=== PATIENT | female | born 1995 | race Caucasian/White ===

== ENCOUNTER 2020-08-07 10:30 | Emergency (ER) | payer BC, MEDICAID, SELFPAY ==
--- NOTE | ~2020-08-07 | XR_ITS ---
XR ribs RT 2V w CXR 2V DATE: 08/07/2020 11:13 INDICATION: Right anterior rib pain after moving heavy object TECHNIQUE: PA and lateral chest. 3 views of the right ribs. COMPARISON: None FINDINGS: No right rib fracture is evident. Normal heart size. No hilar or mediastinal enlargement. The lungs are clear. No pleural effusion or p ulmonary vascular congestion or pneumothorax. IMPRESSION: Negative Reviewed, dictated and finalized at location A. GEMENT TRAINER IMPRESSION: Negative
[2020-08-07 10:39] VITALS: BP 106/68; PULSE 87; RESP 20; TEMP 36.8; O2SAT 97
--- NOTE | 2020-08-07 10:57 | ED.GENADULT ---
HPI - General Adult General Chief complaint: Chest Pain <Jaren Poole PA-C - Last Filed: 08/07/20 12:35> Stated complaint: R chest pain <Jaren Poole PA-C - Last Filed: 08/07/20 12:35> Time Seen by Provider: 08/07/20 10:44 <Jaren Poole PA-C - Last Filed: 08/07/20 12:35> Source: patient <Jaren Poole PA-C - Last Filed: 08/07/20 12:35> Mode of arrival: ambulatory <Jaren Poole PA-C - Last Filed: 08/07/20 12:35> Limitations: no limitations <Jaren Poole PA-C - Last Filed: 08/07/20 12:35> History of Present Illness HPI narrative: Patient a 25-year-old female who presents with 2 weeks duration of right-sided rib pain noting that she had initially fallen into a chair injuring the ribs the pain has persisted is worse with deep breathing has taken [id number]-lojegta medications with minimal improvement denies other injuries or complaints has not been seen for this presents per private vehicle no distress denies URI symptoms <Jaren Poole PA-C - Last Filed: 08/07/20 12:35> Related Data Home medications: Home Medications Medication Instructions Recorded Confirmed sertraline [Zoloft] 50 mg PO DAILY 08/07/20 08/07/20 <Jaren Poole PA-C - Last Filed: 08/07/20 12:35> Allergies/adverse reactions: Allergies Allergy/AdvReac Type Severity Reaction Status Date / Time No Known Allergies Allergy Verified 08/07/20 10:49 <Jaren Poole PA-C - Last Filed: 08/07/20 12:35> Review of Systems Review of Systems: All systems reviewed & are unremarkable except as noted in HPI and below <Jaren Poole PA-C - Last Filed: 08/07/20 12:35> [facility] Past Medical History Medical History: Medical History (Updated 08/07/20 @ 12:34 by Jaren Poole PA-C) Anxiety <JOVANNI Enriquez Last Filed: 08/07/20 12:35> Social History Social History: Social History (Updated 08/07/20 @ 10:58 by Jaren Poole PA-C) Smoking status: Current every day smoker Gender identity (if verbalized by the patient): Female <Jaren Poole PA-C - Last Filed: 08/07/20 12:35> Exam Narrative: Exam Narrative: GENERAL: Well-appearing, well-nourished, and in no acute distress. HEAD: Normocephalic, atraumatic. EYES: PERRLA and EOMI. ENT: Nares clear, no rhinorrhea or epistaxis. Mucous membranes moist. NECK: Supple. No adenopathy or masses. No carotid bruits or JVD CHEST: Clear to auscultation. No respiratory distress. No wheezes rales or rhonchi. Reproducible right-sided chest wall tenderness HEART: Regular rate and rhythm. No murmur heard. Normal peripheral pulses. ABDOMEN: Soft, nontender, nondistended EXTREMITIES: Normal range of motion. No edema. SKIN: Warm, dry, no rash. NEURO: No focal deficits. Alert and oriented x3. Normal speech and gait PSYCH: Normal mood and affect. <Jaren Poole PA-C - Last Filed: 08/07/20 12:35> Course Course Emergency Course: Patient evaluated in the emergency department no high risk changes likely musculoskeletal pain secondary to the injury no rib fractures no pneumothorax no URI symptoms normal vital signs no hypoxemia will be discharged at this time with outpatient follow-up provided with reasons to return <Jaren Poole PA-C - Last Filed: 08/07/20 12:35> Vital Signs Vital signs: Vital Signs Temperature 98.2 F 08/07/20 10:39 Pulse Rate 87 08/07/20 10:39 Respiratory Rate 20 08/07/20 10:39 Blood Pressure 106/68 08/07/20 10:39 Pulse Oximetry 97 08/07/20 10:39 Temperature 98.2 F 08/07/20 10:39 Pulse Rate 63 08/07/20 12:14 Respiratory Rate 18 08/07/20 12:14 Blood Pressure 110/62 08/07/20 12:14 Pulse Oximetry 100 08/07/20 12:14 <Jaren Poole PA-C - Last Filed: 08/07/20 12:35> Vital Signs Temperature 98.2 F 08/07/20 10:39 Pulse Rate 87 08/07/20 10:39 Respiratory Rate 20 08/07/20 10:39 Blood Pressure 106/68 08/07
[2020-08-07] MEDS: KETOROLAC (*BKC) 60 MG/2 ML VIAL IM (11:13)
[2020-08-07 12:14] VITALS: BP 110/62; PULSE 63; RESP 18; O2SAT 100
== END 2020-08-07 12:45 | disposition home or self-care (01) ==
PROVIDERS: Emergency Provider General Practice; PCP Family Medicine
DX: R07.89 Other chest pain (principal); F17.200 Nicotine dependence, unspecified, uncomplicated
CPT/HCPCS: 71046; 71100; 96372; 99283; J1885

== ENCOUNTER 2020-11-07 15:54 | Outpatient (RCR) | payer BC, OTHER, SELFPAY ==
--- NOTE | 2020-11-07 17:52 | PTOPEVAL ---
Thank you for referring Candace Fletcher to [facility].? The patient is scheduled to be seen for therapy? ____x/week for ___ weeks. Please review, sign, date and return this plan of care PRINCE. I agree with and certify that the following plan of care is medically necessary. Referring Physician Date Admitting Provider: Attending Provider: Shaye Rendon, NURSE AUDITOR-BC Referring Provider:
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
--- NOTE | 2020-12-20 14:00 | PTOPEVAL ---
Thank you for referring Candace Fletcher to [facility].? Please review, sign, date and return this plan of care PRINCE. I agree with and certify that the following plan of care is medically necessary. Referring Physician Date Admitting Provider: Attending Provider: Shaye Rendon, WEIGHT CHECKER-BC Referring Provider: *PT Outpatient Evaluation Start: 11/07/20 16:05 Freq: Status: Active Protocol: Document 12/20/20 12:55 OLIVERIO (Rec: 12/20/20 13:48 OLIVERIO [email or web address]) Therapy Assessment Status Assessment Status Assessment Status Discharge Evaluation Information Problem Diagnosis neck pain/back pain Onset 10/31/20 Subjective Information Pt. reports that she notices Query Text:As Reported By Patient/ gains in strength. She Family however notes that she is still having constant pain. Pt. reports neck mobility is better. She states that not much change in regards to low back pain. She reports that she is exercising daily and focusing on her posture more. She reports that she will continue with exercise and is ready for dischrage. Pain Assessment Timing of Pain Assessment Timing of Pain Assessment Pre-Treatment Pain Scale Pain Scale Used Numeric (1 - 10) Self Report Pain Assessment Neck Reported Pain Level 4 Greatest Pain Intensity 4 Lower Back Reported Pain Level 6 Greatest Pain Intensity 7 Pain Score Pain Score 4,6: Self Report Interventions Used Interventions Used By Clinicians Electrical Stimulation, Exercise,Heat Cervical and Lumbar ROM Cervical ROM Cervical Flexion (0-60) 55 Query Text:Active in Degrees Cervical Extension (0-70) 70 Query Text:Active in Degrees Cervical Lateral Flexion Right (0-50) 45 Query Text:Active in Degrees Cervical Lateral Flexion Left (0-50) 45 Query Text:Active in Degrees Cervical Rotation Right (0-90) 80 Query Text:Active in Degrees Cervical Rotation Left (0-90) 80 Query Text:Active in Degrees Lumbar ROM Lumbar Flexion Active Mid Kaur Query Text:Hands to: Lumbar Extension (0-40) 25 Query Text:Active in Degrees Lumbar Lateral Flexion Right (0-40) 30 Query Text:Active in Degrees Lumbar Lateral Flexion Left (0-40) 30 Query Text:Active in Degrees Lateral Rotation Right (0-45) 35 Q
== END 2020-12-20 14:55 | disposition home or self-care (01) ==
LOC: CHSPT 15:54
PROVIDERS: Visit Provider Nurse Practitioner Family
DX: M54.10 Radiculopathy, site unspecified (principal); M54.5 Low back pain; M54.2 Cervicalgia
CPT/HCPCS: 97014; 97110; 97140; 97161; G0283

== ENCOUNTER 2020-12-20 14:08 | Outpatient (CLI) | payer BC, OTHER, SELFPAY | END 2020-12-20 14:09 | disposition home or self-care (01) | LOC: CHSIMG 14:11 | PROVIDERS: PCP Nurse Practitioner Family; Visit Provider Nurse Practitioner Family | DX: Z53.8 Procedure and treatment not carried out for other reasons (principal) | CPT/HCPCS: 99199 ==

== ENCOUNTER 2020-12-21 08:40 | Outpatient (CLI) | payer BC, OTHER, SELFPAY ==
--- NOTE | ~2020-12-21 | US_ITS ---
EXAMINATION: US pelvic complete w TV DATE: 12/21/2020 09:31 INDICATION: Dysmenorrhea TECHNIQUE: Multiple transabdominal and endovaginal sonographic images of the pelvis were obtained. COMPARISON: None. FINDINGS: The uterus measures 6.5 x 3.4 x 4.8 cm. Patient reportedly has an IUD however no IUD is see n. The endometrial complex measures 3 mm. The right ovary measures 4.0 x 3.0 x 3.9 cm and contains a 3.5 cm cyst. The left ovary measures 2.3 x 1.9 x 1.7 cm. There is a 1.4 x 1.3 cm cystic area of the l eft ovary with possible internal debris. There is normal vascular flow in the ovaries. There is no fr ee fluid in the pelvis. IMPRESSION: 1. No sonographic correlate for the patient's symptoms. 2. IUD not visualized. 3. Possible complex cyst of the left ovary. Given nonvisualization of the IUD, would recommend correl ation for left lower quadrant tenderness and test to exclude ectopic . These findi ngs and recommendations were discussed with Dr. Shay Ramos DO at 1351 hours on 12/21/2020. Reviewed, dictated and finalized at location B. IMPRESSION: 1. No sonographic correlate for the patient's symptoms. 2. IUD not visualized. 3. Possible complex cyst of the left ovary. Given nonvisualization of the IUD, would recommend correlation for left lower quadrant tenderness and te st to exclude ectopic . These findings and recommendations were discus sed with Dr. Shay Ramos DO at 1351 hours on 12/21/2020.
== END 2020-12-21 08:41 | disposition home or self-care (01) ==
PROVIDERS: PCP Nurse Practitioner Family; Visit Provider Family Medicine
DX: N94.6 Dysmenorrhea, unspecified (principal)
CPT/HCPCS: 76830; 76856

== ENCOUNTER 2020-12-23 09:11 | Emergency (ER) | payer BC, OTHER, SELFPAY ==
[2020-12-23] VITALS (11 sets, daily range): BP systolic 95–138; BP diastolic 55–96; PULSE 51–60; RESP 13–25; TEMP 36.7; O2SAT 98–100
--- NOTE | ~2020-12-23 | US_ITS ---
EXAMINATION: US pelvic complete DATE: 12/23/2020 10:54 INDICATION: Vaginal bleeding TECHNIQUE: Multiple transabdominal and endovaginal sonographic images of the pelvis were obtained. COMPARISON: 12/21/2020 FINDINGS: The uterus measures 6.6 x 3.5 x 3.8 cm. The endometrial complex measures 3 mm. The right ov fitz measures 3.8 x 2.8 x 3.9 cm and contains a 3.5 cm cyst. The left ovary measures 2.1 x 1.8 x 1.8 c m and contains a 1.3 cm cyst. Internal debris questioned on recent ultrasound is not definitely evide nt. There is normal vascular flow in the ovaries. There is no free fluid in the pelvis. No IUD is emiliano ntified. IMPRESSION: 1. No sonographic correlate for the patient's symptoms. No IUD identified. Reviewed, dictated and finalized at location B.
[2020-12-23 09:53] LABS: Basophils Absolute Auto 0.1 K/mm3 (0.0-0.1); Basophils Percent Auto 0.8 % (0.2-1.2); Eosinophils Absolute Auto 0.6 K/mm3 (0-0.3); Hematocrit 39.1 % (37.0-47.0); Hemoglobin 12.5 g/dL (12.0-15.0); Immature Granulocyte Absolute 0.02 K/mm3 (0.00-0.031); Immature Granulocyte Percent A 0.3 % (0-0.5); Lymphocytes Absolute Auto 1.92 K/mm3 (0.9-3.2); Mean Corpuscular Hemoglobin 25.9 pg (26-34); Mean Platelet Volume 11.3 fl (7.4-10.4); Monocytes Absolute Auto 0.7 K/mm3 (0.1-0.6); Monocytes Percent Auto 9.5 % (2.6-8.5); Neutrophils Absolute Auto 4.1 K/mm3 (1.3-6.7); Neutrophils Percent Auto 55.4 % (45.5-73.1); Platelet Count Result 256 k/mm3 (150-375); Red Blood Count 4.83 M/mm3 (4.2-5.4); Red Cell Distribution Width 13.9 % (11.5-14.5); White Blood Count 7.4 K/mm3 (4.5-10.0)
--- NOTE | 2020-12-23 10:01 | ED.FEMALEGU ---
HPI - Female Genitourinary General Chief complaint: Vaginal Bleeding Stated complaint: abdominal pain/vaginal bleeding Time Seen by Provider: 12/23/20 09:59 Source: patient Mode of arrival: ambulatory Limitations: no limitations History of Present Illness HPI Narrative: Patient is 25 years old white female presents with lower abdominal pain and vaginal bleeding that started last night. Patient reports that the bleeding was the spotting and suddenly become a menstrual cycle like bleeding. Last menstrual period 1-1/2-week ago. Patient reports irregular periods in the last few months, sometimes twice a month, used to have IUD, pelvic ultrasound few days ago showed that the IUD fell out. Patient is not sexually active for months. Patient denies any fever, chills, nausea, vomiting, Related Data Home Medications Medication Instructions Recorded Confirmed levonorgestrel 20 mcg/24 hours (6 1 device INTRAUTERINE ONCE 09/09/20 09/09/20 yrs) 52 mg intrauterine device cetirizine 10 mg tablet 10 mg PO DAILY PRN 12/19/20 Allergies Allergy/AdvReac Type Severity Reaction Status Date / Time No Known Allergies Allergy Verified 12/23/20 09:36 Review of Systems Review of Systems: Narrative: CONSTITUTIONAL: Denies fever, chills, or sweats. EYES: Denies visual changes, redness, or discharge. ENT: Denies rhinorrhea, congestion, sore throat, or otalgia. CARDIOVASCULAR: Denies chest pain, palpitations, or edema. RESPIRATORY: Denies cough or dyspnea. GASTROINTESTINAL: Denies abdominal pain, nausea, vomiting, or diarrhea. GENITOURINARY: Denies dysuria or hematuria. SKIN: Denies rash or itching. MUSCULOSKELETAL: Denies back pain, joint pain, or myalgia. NEUROLOGIC: Denies headache, numbness, or weakness. PSYCHIATRIC: Denies anxiety or depression. [facility] Past Medical History Medical History Anxiety Social History Social History Smoking packs per day: 1 Smoking cigarettes per day: 20.0 Years smoked: 3 Smoking pack-years: 3.00 Smoking status: Current every day smoker Tobacco type: e-cigarettes/vaping Alcohol intake: current Substance use: current Substance use type: marijuana Additional living arrangements comments: boyfriend and child Gender identity (if verbalized by the patient): Female Exam Narrative: Exam Narrative: General appearance: Well-developed, well-nourished Skin: Normal color Head: Normocephalic, nontraumatic Eyes: Clear conjunctiva ENT: Oropharynx normal, ears normal, nose normal Neck: Supple, nontender Chest and respiratory: Airway patent, no respiratory distress, no accessory muscle use Heart: Regular rate/rhythm Abdomen: Soft, nontender, no organomegaly, quiet bowel sounds Vascular: Normal peripheral pulses, normal capillary refill. 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 is normal as tested, no gross motor deficit : External Female Exam: normal external appearance and normal appearance of the urethra Speculum Exam - Vagina: normal appearance of the vagina, normal palpation and vaginal bleeding (Slight vaginal bleeding, required 3 long Q-tip to be dry completely) Course Course Emergency Course: Stable Vital Signs Vital signs: Vital Signs Temperature 36.7 C 12/23/20 09:32 Pulse Rate 60 12/23/20 09:32 Respiratory Rate 14 12/23/20 09:32 Blood Pressure 95/55 L 12/23/20 09:32 Pulse Oximetry 100 12/23/20 09:32 Temperature 36.7 C 12/23/20 09:32 Pulse Rate 52 L 12/23/20 10:46 Respiratory Rate 22 H 12/23/20 10:46 Blood Pre
[2020-12-23 10:27] LABS: Add Urine Microscopic? YES; Appearance Urine Cloudy (Clear); Bacteria Urine Trace /hpf; Bilirubin Urine Negative (Negative); Blood Urine 3+ (Negative); Color Urine Yellow (Yellow); Glucose Urine UA Negative (Negative); Ketones Urine Negative (Negative); Leukocyte Esterase Ur Trace LEU/UL (Negative); Mucus Urine Moderate /lpf; Nitrate Urine Negative (Negative); Protein Urine 1+ mg/dL (Negative); RBC Urine >75 /hpf (0-2); Specific Grav Ur 1.025 (1.001-1.035); Squamous Epithelial Cell Urine Many /hpf (Few); Urobilinogen Urine Negative mg/dL (<2.0)
[2020-12-23 11:32] LABS: Alanine Aminotransferase 14 U/L (4-35); Albumin Level 4.6 g/dL (3.5-5.1); Alkaline Phosphatase 70 U/L (38-126); Anion Gap 11 mmol/L (8-16); Aspartate Amino Transferase 25 U/L (14-36); Bilirubin,Total 0.3 mg/dL (0.2-1.3); Blood Urea Nitrogen 6 mg/dL (7-17); Carbon Dioxide 23 mmol/L (22-30); Chloride 108 mmol/L (98-107); Estimated CRCL calculation 119 ml/min; Estimated Glomerular Filt Rate > 60; Glucose 88 mg/dL (65-105); Lipase 61 U/L (23-300); Potassium 3.9 mmol/L (3.4-5.0); Sodium 142 mmol/L (137-145)
== END 2020-12-23 12:15 | disposition home or self-care (01) ==
PROVIDERS: Emergency Provider Emergency Medicine; PCP Nurse Practitioner Family
DX: N93.9 Abnormal uterine and vaginal bleeding, unspecified (principal); F17.290 Nicotine dependence, other tobacco product, uncomplicated
CPT/HCPCS: 36415; 76856; 80053; 81001; 81025; 83690; 85025; 99284

== ENCOUNTER 2021-01-05 14:06 | Outpatient (CLI) | payer BC, OTHER, SELFPAY ==
--- NOTE | ~2021-01-05 | XR_ITS ---
EXAMINATION: XR abdomen/kub 1V EXAM DATE: 01/05/2021 14:25 INDICATION: Lost IUD. TECHNIQUE: Frontal projection(s) of the abdomen for interpretation. There is no prior study for vanessa mullen. FINDINGS: IUD is projecting over the central aspect of the pelvis, expected position but x-ray can't delineate the confines of a uterus. Given IUD was not able to be confirmed within the uterus on sono gram, CT pelvis without contrast can be obtained if indicated clinically. Nonobstructive bowel gas pa ttern. There are no osseous abnormalities identified. IMPRESSION: IUD projecting over mid pelvis, expected position. Given ultrasound results, CT pelvis ca n be obtained if indicated clinically. Reviewed, dictated and finalized at location B. IMPRESSION: IUD projecting over mid pelvis, expected position. Given ultrasound results, CT pelvis can be obtained if indicated clinically.
== END 2021-01-05 14:07 | disposition home or self-care (01) ==
LOC: ANHIMG 14:14
PROVIDERS: PCP Nurse Practitioner Family; Visit Provider Obstetrics & Gynecology
DX: Z30.431 Encounter for routine checking of intrauterine contraceptive device (principal)
CPT/HCPCS: 74018

== ENCOUNTER → 2021-01-28 00:24 | Outpatient (CLI) | payer BC, OTHER, SELFPAY ==
[2021-01-28 21:24] LABS: SARS-CoV-2 RNA PCR Negative
== END ==
PROVIDERS: PCP Nurse Practitioner Family; Visit Provider Obstetrics & Gynecology
DX: Z01.812 Encounter for preprocedural laboratory examination (principal); Z20.822 Contact with and (suspected) exposure to COVID-19
CPT/HCPCS: C9803; U0003; U0005

== ENCOUNTER 2021-01-30 12:42 | Outpatient (CLI) | payer BC, OTHER, SELFPAY | END 2021-01-30 12:43 | disposition home or self-care (01) | PROVIDERS: PCP Nurse Practitioner Family; Visit Provider Obstetrics & Gynecology | DX: Z98.890 Other specified postprocedural states (principal); Z01.812 Encounter for preprocedural laboratory examination | CPT/HCPCS: 36415; 86850; 86900; 86901 ==

== ENCOUNTER 2021-02-01 01:25 | Day surgery (SDC) | payer BC, OTHER, SELFPAY ==
[2021-01-27 15:25] VITALS: BMI 30.2
[2021-02-01] VITALS (9 sets, daily range): BP systolic 98–106; BP diastolic 39–65; PULSE 54–71; RESP 12–16; TEMP 36.1–36.8; O2SAT 97–100; BMI 30.2
[2021-02-01] MEDS: ACETAMINOPHEN 500 MG TABLET 1000 MG PO (10:52)
[2021-02-01] MEDS: LACTATED RINGERS 1,000 ML 30 ML IV CONT ×2 (10:52→13:18)
[2021-02-01] MEDS: KETOROLAC 15 MG/ML VIAL (*BKC) IV PUSH (10:52)
--- NOTE | 2021-02-01 11:42 | WPDANESEPPF ---
Anes - Initial Pre Proc Eval Procedure: Operation Date: 02/01/21 12:00 Proposed Procedures p Laparoscopic Removal Intrauterine Device - Wolf Bingham MD Date/Time: 02/01/21 11:42 Surgeon: Wolf Bingham MD Pre Op Diagnosis: perforated IUD Patient Data Age: 25 Gender: F Height: 1.57 m Weight: 75 kg Last Vital Signs Temp 36.8 C 02/01/21 11:00 Pulse 66 02/01/21 11:00 Resp 16 02/01/21 11:00 BP 103/60 02/01/21 11:00 Pulse Ox 99 02/01/21 11:00 Allergies Allergy/AdvReac Type Severity Reaction Status Date / Time No Known Allergies Allergy Verified 02/01/21 10:40 Home Medications Medication Instructions Recorded Confirmed Type naproxen 500 mg tablet 500 mg PO BID PRN #60 tablet 09/09/20 01/27/21 Rx albuterol sulfate 90 mcg/actuation 1 puff INHALATION Q4H PRN #8.5 g 12/19/20 02/01/21 Rx aerosol inhaler cetirizine 10 mg tablet 10 mg PO DAILY PRN 12/19/20 01/27/21 History dicyclomine 10 mg capsule 10 mg PO TID #90 cap 12/19/20 01/27/21 Rx sertraline 100 mg tablet 100 mg PO DAILY #90 tablet 12/19/20 01/27/21 Rx Patient hx anesthesia problems: none Family hx anesthesia problems: none PMFSH Past Medical History Medical History Anxiety Asthma Bipolar disorder with depression Social History Social History Smoking packs per day: 1 Smoking cigarettes per day: 20.0 Years smoked: 3 Smoking pack-years: 3.00 Smoking status: Current every day smoker Tobacco type: e-cigarettes/vaping Alcohol intake: current Alcohol use details: few times a week will have some wine Substance use: current Substance use type: marijuana Other substance usage details: CIGERETTES FOR 2 YEARS AND MARAJUANA FOR A FEW MONTHS Living arrangements: with family Additional living arrangements comments: boyfriend and child Gender identity (if verbalized by the patient): Female Spiritual care concerns: No Anes - Eval Final PreProcedure Day of Procedure 02/01/21 11:42 Patient weight: obese Heart: regular rate and rhythm Lungs: decreased breath sounds Airway: Mallampati scale class II Neurological: alert and oriented Last oral intake: >/= 8 hours ASA classification: III Emergent: no Anesthetic plan: proceed Anesthesia type and monitoring: general ETT and standard monitoring Informed Consent: The patient's anesthetic plan and its attendant risks and benefits were discussed with the patient/family/POA. Questions were solicited and answers provided to the satisfaction of the patient/family/POA.
--- NOTE | 2021-02-01 12:09 | PM.IMHP ---
H&P: HPI History of Present Illness Date/Time: 02/01/21 12:09 25 y/o with pelvic pain and irregular bleeding. Imaging shows IUD to be in an extrauterine intraperitoneal location. She is here for laparoscopic retrieval. Chief Complaint: Here for surgery Review of Systems Review of Systems: All systems reviewed & are unremarkable except as noted in HPI and below PMFSH Past Medical History Medical History Anxiety Asthma Bipolar disorder with depression Social History Social History Smoking packs per day: 1 Smoking cigarettes per day: 20.0 Years smoked: 3 Smoking pack-years: 3.00 Smoking status: Current every day smoker Tobacco type: e-cigarettes/vaping Alcohol intake: current Alcohol use details: few times a week will have some wine Substance use: current Substance use type: marijuana Other substance usage details: CIGERETTES FOR 2 YEARS AND MARAJUANA FOR A FEW MONTHS Living arrangements: with family Additional living arrangements comments: boyfriend and child Gender identity (if verbalized by the patient): Female Spiritual care concerns: No Meds Home Medications and Allergies Home Medications Medication Instructions Recorded Confirmed Type naproxen 500 mg tablet 500 mg PO BID PRN #60 tablet 09/09/20 01/27/21 Rx albuterol sulfate 90 mcg/actuation 1 puff INHALATION Q4H PRN #8.5 g 12/19/20 02/01/21 Rx aerosol inhaler cetirizine 10 mg tablet 10 mg PO DAILY PRN 12/19/20 01/27/21 History dicyclomine 10 mg capsule 10 mg PO TID #90 cap 12/19/20 01/27/21 Rx sertraline 100 mg tablet 100 mg PO DAILY #90 tablet 12/19/20 01/27/21 Rx Allergies Allergy/AdvReac Type Severity Reaction Status Date / Time No Known Allergies Allergy Verified 02/01/21 10:40 Vital Signs Vital Signs - 24 hr 02/01/21 11:00 Temperature 36.8 C Pulse Rate 66 Respiratory Rate 16 Blood Pressure 103/60 Pulse Oximetry 99 Exam Const: Orientation/consciousness: patient oriented x3 Other: Well-developed, well-nourished female in no acute distress. Neck: Thyroid: thyroid normal Lymphatic: no lymphadenopathy noted (in neck, axilla or inguinal nodes) Resp: Effort & Inspection: normal respiratory effort Auscultation: clear to auscultation bilaterally Cardio: Rate: regular rate Rhythm: regular rhythm Heart sounds: S1 normal heart sound present and S2 normal heart sound present GI: Other: ABD: Soft, nontender, nondistended. No guarding or rebound tenderness. No hepatosplenomegaly. : General: Yes no CVA tenderness Other: External genitalia: normal female hair distribution, without lesion. Urethral meatus: no lesion, non prolapsed. Bladder: no mass, nontender Vagina: well-estrogenized, without lesion or discharge. No cystocele or rectocele. Cervix: no lesion or discharge. Uterus: small, anteverted, freely mobile, nontender Adnexa: no mass or tenderness. Anus/perineum: no lesions, nontender Back/Spine/Pelvis: Back: no CVA tenderness Skin: General skin exam: normal color and no rashes or lesions noted Neuro: General: patient oriented x3 Extrem: Other: Extremities: nontender with no edema Psych: Mental Status: mental status grossly normal Affect: normal affect Assessment and Plan Assessment and plan (1) Malpositioned IUD: Code(s): T83.32XA - Displacement of intrauterine contraceptive device, initial encounter Status: Acute Assessment and Plan: A: Intraperitoneal IUD P: Offered laparoscopic retrieval of IUD. She understands risks of surgery to include risks of anesthesia, risks of pain, infection, bleeding, blood products, thromboembolic phenomena and damage to adjacent structures such as bowel, bladder, ureters, blood vessels and nerves. She understands all these risks and elects to proceed with surgery.
--- NOTE | 2021-02-01 12:13 | WPDHPUPDATE1 ---
History and Physical Update Update Date/Time: 02/01/21 12:13 History and Physical has been reviewed, including an updated exam of the patient. There are NO changes in the patient's condition. Risks, benefits, and alternatives have been discussed and questions answered. Patient agrees to proceed with procedure.
--- NOTE | 2021-02-01 13:04 | W.PM.PROC2 ---
Procedure Note - Detailed Date of Procedure 02/01/21 Pre-op Diagnosis Intraperitoneal IUD Post-op Diagnosis same Procedure Performed Laparoscopic retrieval of intraperitoneal IUD Surgeon Wolf Bingham MD Anesthesia general Findings IUD in pelvis. Normal-appearing liver, appendix, uterus, bilateral ovaries and tubes, bilateral uterosacral and round ligaments. Both ureters visualized. Description of Procedure The patient was taken to the operating room where general endotracheal anesthesia was administered. She was prepared and draped in the usual sterile fashion in dorsal lithotomy position. The bladder was drained with a red rubber catheter. A sterile speculum was placed into the vagina. The anterior lip of the cervix was grasped with a single-tooth tenaculum. The acorn uterine manipulator was placed. The speculum was withdrawn. Gloves were changed and attention was turned the abdomen. An infraumbilical skin incision was made with a scalpel. The abdomen was tented and a 5mm bladeless trocar was advanced under direct laparoscopic visualization. Pneumoperitoneum was administered using carbon dioxide gas. A survey of the pelvis and abdomen revealed the findings noted above. A second skin incision was made in the midline above the symphysis pubis and a 5mm bladeless trocar was advanced under direct laparoscopic visualization. The IUD strings were grasped with a forceps and easily removed, intact. The IUD was discarded. Hemostasis was excellent. The ports were withdrawn. The gas was allowed to escape. The skin incisions were reapproximated using interrupted subcuticular sutures of 4 0 Vicryl. Dermaflex was applied externally. The vaginal instrumentation was withdrawn and hemostasis was excellent here as well. Sponge, lap, needle and instrument counts were correct. The patient was awakened and taken to recovery room in stable condition. I was present and scrubbed through the entire procedure. Implants None Estimated Blood Loss 5 Drains No Packing No Pathology none sent Complications None Condition stable Disposition PACU
[2021-02-01] MEDS: fentaNYL CITRATE INJ (*CRX) 100 MCG/2 ML VIAL 25 MCG IV PUSH ×2 (13:38→13:42)
[2021-02-01] MEDS: oxyCODONE HCL (*CRX) 5 MG TAB IR PO (15:12)
== END 2021-02-01 15:45 | disposition home or self-care (01) ==
PROVIDERS: PCP Nurse Practitioner Family; Visit Provider Obstetrics & Gynecology
PROC: (CPT 49320; principal; 2021-02-01 12:00)
DX: T83.32XA Displacement of intrauterine contraceptive device, initial encounter (principal); J45.909 Unspecified asthma, uncomplicated; F31.9 Bipolar disorder, unspecified; F41.9 Anxiety disorder, unspecified; Z79.51 Long term (current) use of inhaled steroids; F17.290 Nicotine dependence, other tobacco product, uncomplicated; F12.90 Cannabis use, unspecified, uncomplicated; E66.9 Obesity, unspecified; Z68.30 Body mass index [BMI] 30.0-30.9, adult; Y82.8 Other medical devices associated with adverse incidents
CPT/HCPCS: 49329; A9270; J1100; J1885; J2250; J2405; J2704; J2710; J3010; J7030; J7120

== ENCOUNTER 2021-05-09 10:55 | Outpatient (CLI) | payer BC, OTHER, SELFPAY ==
--- NOTE | ~2021-05-09 | XR_ITS ---
XR chest 2V DATE: 05/09/2021 11:21 INDICATION: Cough, shortness of breath, congestion, drainage for 4 days TECHNIQUE: PA and lateral views COMPARISON: August 07, 2020 PA and lateral chest FINDINGS: Normal heart size. No hilar or mediastinal enlargement. No pulmonary infiltrate or consolid ation, pleural effusion or pulmonary vascular congestion or pneumothorax. Included skeletal structure s are unremarkable. IMPRESSION: Negative Reviewed, dictated and finalized at location A. NEERING MATHEMATICIAN IMPRESSION: Negative
== END 2021-05-09 10:56 | disposition home or self-care (01) ==
PROVIDERS: PCP Nurse Practitioner Family; Visit Provider Nurse Practitioner Family
DX: R06.02 Shortness of breath (principal)
CPT/HCPCS: 71046

== ENCOUNTER 2021-06-05 12:24 | Outpatient (CLI) | payer OTHER, SELFPAY ==
--- NOTE | ~2021-06-05 | US_ITS ---
EXAMINATION: US pelvic complete w TV DATE: 06/05/2021 13:24 INDICATION: Left lower quadrant abdominal pain TECHNIQUE: Multiple transabdominal and endovaginal sonographic images of the pelvis were obtained. COMPARISON: 12/23/2020 FINDINGS: The uterus measures 7.4 x 3.0 x 4.1 cm. The endometrial complex measures 2 mm in thickness. The righ t ovary measures 2.6 x 2.8 x 1.9 cm. 1.5 cm anechoic cyst/follicle in the right ovary. The left ovary measures 2.3 x 1.5 x 1.4 cm. Massive flow identified in both ovaries on color Doppler. There is no f ree fluid in the pelvis. IMPRESSION: 1. 1.5 cm anechoic cyst/follicle at the right ovary. Otherwise unremarkable pelvic ultrasound. Reviewed, dictated and finalized at location A. OMIC ANALYSIS DIRECTOR IMPRESSION: 1. 1.5 cm anechoic cyst/follicle at the right ovary. Otherwise unremarkable pel evy ultrasound.
--- NOTE | ~2021-06-05 | XR_ITS ---
XR abdomen/kub 1V 06/05/2021 13:26 INDICATION: Abdomen pain. Constipation. TECHNIQUE: KUB COMPARISON: 01/05/2021 FINDINGS: Bowel gas pattern is normal. There is no evidence of free air, mass, organomegaly, ascites or obstruction. No abnormal calculi are seen. The bones appear intact. IMPRESSION: 1: No acute abdominal abnormality identified. Reviewed, dictated and finalized at location A. A DIVING INSTRUCTOR
== END 2021-06-05 12:25 | disposition home or self-care (01) ==
LOC: CHSIMG 12:29
PROVIDERS: PCP Nurse Practitioner Family; Visit Provider Nurse Practitioner Family
DX: K59.00 Constipation, unspecified (principal)
CPT/HCPCS: 74018; 76830; 76856

== ENCOUNTER 2021-07-12 15:20 | Outpatient (CLI) | payer BC, OTHER, SELFPAY ==
--- NOTE | ~2021-07-12 | US_ITS ---
EXAMINATION: US pelvic complete w TV DATE: 07/12/2021 16:14 INDICATION: Excessive and frequent menstruation with irregular infrequent periods. TECHNIQUE: Multiple transabdominal and endovaginal sonographic images of the pelvis were obtained. COMPARISON: None. FINDINGS: The uterus measures 7.9 x 3.2 x 4.5 cm. The endometrial complex measures 5 mm in thickness. The righ t ovary measures 2.4 x 2.7 x 1.9 cm. The left ovary measures 1.9 x 1.3 x 1.5 cm. There is normal vasc ular flow in the ovaries. There is no free fluid in the pelvis. IMPRESSION: 1. Normal pelvic ultrasound. Reviewed, dictated and finalized at location A. PROGRAMMER
[2021-07-12 15:36] LABS: Hematocrit 43.5 % (37.0-47.0); Hemoglobin 14.1 g/dL (12.0-15.0); Mean Corpuscular HGB Conc 32.4 g/dl (32-36); Mean Corpuscular Volume 83.2 fl (80-100); Mean Platelet Volume 10.6 fl (7.4-10.4); Platelet Count Result 277 k/mm3 (150-375); Red Blood Count 5.23 M/mm3 (4.2-5.4); Red Cell Distribution Width 13.2 % (11.5-14.5); White Blood Count 9.3 K/mm3 (4.5-10.0)
[2021-07-12 15:47] LABS: Alanine Aminotransferase 15 U/L (4-35); Albumin Level 4.6 g/dL (3.5-5.1); Alkaline Phosphatase 80 U/L (38-126); Anion Gap 12 mmol/L (8-16); Aspartate Amino Transferase 22 U/L (14-36); Bilirubin,Total 0.5 mg/dL (0.2-1.3); Blood Urea Nitrogen 8 mg/dL (7-17); Calcium 9.4 mg/dL (8.4-10.2); Carbon Dioxide 23 mmol/L (22-30); Chloride 102 mmol/L (98-107); Estimated Glomerular Filt Rate > 60; Glucose 103 mg/dL (65-110); Sodium 137 mmol/L (137-145)
== END 2021-07-12 15:21 | disposition home or self-care (01) ==
LOC: ANHIMG 15:21
PROVIDERS: PCP Nurse Practitioner Family; Visit Provider Family Medicine
DX: N92.1 Excessive and frequent menstruation with irregular cycle (principal)
CPT/HCPCS: 36415; 76830; 76856; 80053; 85027

== ENCOUNTER 2021-08-09 15:53 | Outpatient (CLI) | payer OTHER, SELFPAY ==
--- NOTE | ~2021-08-09 | XR_ITS ---
EXAMINATION: XR knee RT 3V DATE: 08/09/2021 16:20 INDICATION: Right knee pain TECHNIQUE: Anteroposterior, sunrise and crosstable lateral views of the right knee were obtained COMPARISON: None. FINDINGS: Alignment is normal. No fracture. Joint spaces are normal and nonweightbearing imaging. No joint eff usion/layering lipohemarthrosis. Soft tissues are unremarkable. IMPRESSION: 1. Negative right knee radiographs. Reviewed, dictated and finalized at location A. VIORAL HEALTH ASSISTANT
== END 2021-08-09 15:54 | disposition home or self-care (01) ==
LOC: CHSIMG 15:55
PROVIDERS: PCP Nurse Practitioner Family; Visit Provider Nurse Practitioner Family
DX: M25.561 Pain in right knee (principal)
CPT/HCPCS: 73562

== ENCOUNTER 2021-08-22 09:34 | Outpatient (CLI) | payer BC, OTHER, SELFPAY ==
--- NOTE | ~2021-08-22 | MR_ITS ---
EXAMINATION: MR knee RT wo con DATE: 08/22/2021 11:51 INDICATION: Right knee pain. TECHNIQUE: Magnetic resonance imaging (MRI) of the right knee was performed without intravenous contr ast. Sequences included axial PD-weighted FS FSE, coronal PD-weighted FSE and PD-weighted FS FSE, sag ittal PD-weighted FSE, and sagittal T2-weighted FS FSE. COMPARISON: Right knee radiographs 08/09/2021 FINDINGS: Medial compartment: Medial meniscus is normal. Medial compartment cartilage is normal. Lateral compartment: Lateral meniscus is normal. Lateral compartment cartilage is normal. Patellofemoral compartment: Patellar cartilage is normal. Trochlear cartilage is normal. Ligaments and tendons: The anterior and posterior cruciate ligaments are normal. Medial collateral ligament is normal. There are changes of prior sprain of fibular collateral ligament characterized by thickening and increased signal intensity proximally. The extensive mechanism is normal. Fluid: There is no knee joint effusion. IMPRESSION: 1. No specific etiology for the patient's symptoms. Reviewed, dictated and finalized at location A. H DESIZING RANGE OPERATOR CHIEF
== END 2021-08-22 09:35 | disposition home or self-care (01) ==
LOC: CHSIMG 09:37
PROVIDERS: PCP Nurse Practitioner Family; Visit Provider Nurse Practitioner Family
DX: M25.561 Pain in right knee (principal)
CPT/HCPCS: 73721

== ENCOUNTER 2021-09-07 11:59 | Outpatient (RCR) | payer BC, OTHER, SELFPAY ==
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
== END 2021-09-07 15:08 | disposition home or self-care (01) ==
LOC: CHSPT 11:59
PROVIDERS: PCP Nurse Practitioner Family; Visit Provider Nurse Practitioner Family
DX: M25.561 Pain in right knee (principal)
CPT/HCPCS: 97110; 97161

== ENCOUNTER 2022-02-12 21:30 | Observation (INO) | payer BC, OTHER, SELFPAY ==
[2022-02-12] VITALS (10 sets, daily range): BP systolic 115–117; BP diastolic 67–78; PULSE 74–109; O2SAT 100; BMI 28.4
[2022-02-12 22:51] LABS: Bacteria Urine Trace /hpf; Mucus Urine Rare /lpf; RBC Urine 0-2 /hpf (0-2); Squamous Epithelial Cell Urine Moderate /hpf (Few)
[2022-02-12 22:57] LABS: Appearance Urine Clear (Clear); Bilirubin Urine Negative (Negative); Blood Urine Negative (Negative); Color Urine Yellow (Yellow); Glucose Urine UA Negative (Negative); Ketones Urine Negative (Negative); Leukocyte Esterase Ur 2+ LEU/UL (Negative); Nitrate Urine Negative (Negative); Protein Urine Negative (Negative); Specific Grav Ur 1.015 (1.001-1.035); Urobilinogen Urine 0.2 mg/dL (<2.0); pH Urine 6.5 (5.0-9.0)
[2022-02-12 23:03] LABS: Add Urine Microscopic? YES
[2022-02-12] MEDS: TERBUTALINE SULFATE 1 MG/ML VIAL 0.25 MG SUB-Q (23:19)
--- NOTE | 2022-02-12 23:59 | OBADM ---
This patient, Candace Fletcher, admitted to the OB room OB Post 115 for observation. Patient/family oriented to hospital policies and general routines including ID bracelet, bed and alarms, visiting hours, pain management, procedures, bathroom and other care routines, personal items, smoking policy, room service/diet, and visiting hours. Patient/Family are encouraged to report perceived risks to care and to ask questions if they do not understand what they are told or what they should do.
--- NOTE | 2022-02-14 18:12 | P.PNOB_ITS ---
OB - Triage/Final Diagnosis Visit Information Date of evaluation: 02/14/22 Reason for evaluation: threatened labor Comments/Additional reasons for admission: I have assessed the risk for this patient, Candace Fletcher, and determined that she would benefit from observation care. Evaluation Laboratory results: Laboratory Tests 02/12/22 22:11 Urine Color Yellow Urine Appearance Clear Urine pH 6.5 Ur Specific [place] 1.015 Urine Protein Negative Urine Glucose (UA) Negative Urine Ketones Negative Ur Blood (Man) Negative Urine Nitrate Negative Urine Bilirubin Negative Urine Urobilinogen 0.2 Leukocyte Esterase Rfl 2+ H Urine RBC 0-2 Urine WBC 10-15 H Ur Squamous Epith Cells Moderate H Urine Bacteria Trace Urine Mucus Rare
== END 2022-02-13 00:22 | disposition home or self-care (01) ==
PROVIDERS: Admitting Provider Obstetrics & Gynecology; PCP Nurse Practitioner Family; Visit Provider Obstetrics & Gynecology
DX: O47.02 False labor before 37 completed weeks of gestation, second trimester (principal); Z3A.27 27 weeks gestation of pregnancy
CPT/HCPCS: 81001; 87086; 87088; 87147; 96372; G0378; G0379; J3105

== ENCOUNTER 2022-03-01 12:00 | Outpatient (CLI) | payer BC, OTHER, SELFPAY ==
[2022-03-01] MEDS: RHO(D) IMMUNE GLOBULIN 300 MCG/2 ML SYRINGE IM (16:24)
== END 2022-03-01 12:01 | disposition home or self-care (01) ==
LOC: ANHLAB 12:05
PROVIDERS: PCP Nurse Practitioner Family; Referring Provider Obstetrics & Gynecology; Visit Provider Obstetrics & Gynecology
DX: Z34.90 Encounter for supervision of normal pregnancy, unspecified, unspecified trimester (principal); Z3A.00 Weeks of gestation of pregnancy not specified
CPT/HCPCS: 36415; 85461; 90384; 96372; J2790

== ENCOUNTER 2022-04-05 14:57 | Observation (INO) | payer BC, OTHER, SELFPAY ==
[2022-04-05] VITALS (18 sets, daily range): BP systolic 105–153; BP diastolic 45–88; PULSE 82–182; TEMP 36.4; BMI 30.4
[2022-04-05] MEDS: TERBUTALINE SULFATE 1 MG/ML VIAL 0.25 MG SUB-Q ×3 (16:35→17:38)
[2022-04-05 17:08] LABS: Add Urine Microscopic? YES; Amorphous Sediment Urine Few; Appearance Urine Cloudy (Clear); Bacteria Urine Trace /hpf; Bilirubin Urine Negative (Negative); Blood Urine Negative (Negative); Color Urine Yellow (Yellow); Glucose Urine UA Negative (Negative); Ketones Urine Negative (Negative); Leukocyte Esterase Ur Negative LEU/UL (NEGATIVE); Mucus Urine Rare /lpf; Nitrate Urine Negative (Negative); Protein Urine Negative (Negative); RBC Urine 0-2 /hpf (0-2); Specific Grav Ur 1.014 (1.001-1.035); Squamous Epithelial Cell Urine Moderate /hpf (Few); Urobilinogen Urine Negative mg/dL (<2.0); WBC Urine 0-3 /hpf (0-3)
--- NOTE | 2022-04-05 21:15 | PM.OBTRLD ---
OB - Triage/Final Diagnosis Visit Information Date of evaluation: 04/05/22 Reason for evaluation: threatened labor Comments/Additional reasons for admission: I have assessed the risk for this patient, Candace Fletcher, and determined that she would benefit from observation care. Evaluation Laboratory results: Laboratory Tests 04/05/22 16:52 Urine Color Yellow Urine Appearance Cloudy H Urine pH 6.0 Ur Specific [place] 1.014 Urine Protein Negative Urine Glucose (UA) Negative Urine Ketones Negative Ur Blood (Man) Negative Urine Nitrate Negative Urine Bilirubin Negative Urine Urobilinogen Negative Ur Leukocyte Esterase Negative Urine RBC 0-2 Urine WBC 0-3 Ur Squamous Epith Cells Moderate H Amorphous Sediment Few H Urine Bacteria Trace Urine Mucus Rare Vital signs: Vital Signs - 24 hr 04/05/22 15:25 04/05/22 15:31 04/05/22 15:46 Temperature Pulse Rate 111 H 99 97 Blood Pressure 114/73 105/88 107/63 Oxygen Delivery 04/05/22 16:01 04/05/22 16:15 04/05/22 16:29 Temperature 97.6 F Pulse Rate 98 82 Blood Pressure 106/61 110/75 Oxygen Delivery 04/05/22 16:30 04/05/22 16:46 04/05/22 17:01 Temperature Pulse Rate 108 H 150 H 131 H Blood Pressure 114/65 115/71 120/64 Oxygen Delivery 04/05/22 17:16 04/05/22 17:31 04/05/22 17:46 Temperature Pulse Rate 122 H 128 H 123 H Blood Pressure 113/65 110/56 L 134/81 Oxygen Delivery 04/05/22 18:01 04/05/22 18:16 04/05/22 18:30 Temperature Pulse Rate 132 H 182 H 128 H Blood Pressure 128/79 112/47 L 117/76 Oxygen Delivery 04/05/22 18:45 04/05/22 19:16 04/05/22 19:31 Temperature Pulse Rate 118 H 123 H 103 H Blood Pressure 127/79 153/45 H 132/76 Oxygen Delivery 04/05/22 16:21 Temperature Pulse Rate Blood Pressure Oxygen Delivery Room Air
--- NOTE | 2022-04-05 22:36 | PC.NURSE ---
1930- Dr. Valerie Menchaca in department. pt states that she isn't feeling as many contractions and she is wanting to go home. T reviewed. Order received to d/c pt home with instructions on when to return to L&D.
== END 2022-04-05 19:51 | disposition home or self-care (01) ==
PROVIDERS: Admitting Provider Obstetrics & Gynecology; PCP Nurse Practitioner Family; Visit Provider Obstetrics & Gynecology
DX: O47.03 False labor before 37 completed weeks of gestation, third trimester (principal); Z3A.34 34 weeks gestation of pregnancy
CPT/HCPCS: 81001; 87086; 96372; G0378; G0379; J3105

== ENCOUNTER 2022-04-20 01:09 | Outpatient (CLI) | payer BC, OTHER, SELFPAY ==
--- NOTE | 2022-04-20 06:13 | PM.OBTRLD ---
OB - Triage/Final Diagnosis Visit Information Date of evaluation: 04/19/22 Reason for evaluation: threatened labor Comments/Additional reasons for admission: I have assessed the risk for this patient, Candace Fletcher, and determined that she would benefit from observation care.
== END 2022-04-20 01:10 | disposition home or self-care (01) ==
PROVIDERS: PCP Nurse Practitioner Family; Visit Provider Obstetrics & Gynecology
DX: O42.90 Premature rupture of membranes, unspecified as to length of time between rupture and onset of labor, unspecified weeks of gestation (principal); Z3A.00 Weeks of gestation of pregnancy not specified
CPT/HCPCS: 59025; 84112

== ENCOUNTER 2022-05-08 22:55 | Inpatient (IN) | payer BC, OTHER, SELFPAY ==
[2022-05-08] MEDS: AMPICILLIN 2 GM/NS 100 ML 2 GM/100 ML BAG IVPB (23:55)
[2022-05-08] MEDS: LACTATED RINGERS 1,000 ML 125 ML IV CONT (23:55)
[2022-05-09] VITALS (79 sets, daily range): BP systolic 89–149; BP diastolic 49–108; PULSE 58–136; RESP 16–18; TEMP 36.1–36.9; O2SAT 97–100; BMI 32.0
[2022-05-09 00:17] LABS: Basophils Percent Auto 0.4 % (0.2-1.2); Eosinophils Absolute Auto 0.3 K/mm3 (0-0.3); Hematocrit 35.6 % (37.0-47.0); Hemoglobin 11.1 g/dL (12.0-15.0); Immature Granulocyte Percent A 0.9 % (0-0.5); Lymphocytes Absolute Auto 2.04 K/mm3 (0.9-3.2); Lymphocytes Percent Auto 18.3 % (18.3-44.2); Mean Corpuscular HGB Conc 31.2 g/dl (32-36); Mean Corpuscular Hemoglobin 23.3 pg (26-34); Mean Corpuscular Volume 74.6 fl (80-100); Mean Platelet Volume 10.2 fl (7.4-10.4); Monocytes Absolute Auto 1.1 K/mm3 (0.1-0.6); Monocytes Percent Auto 9.8 % (2.6-8.5); Neutrophils Absolute Auto 7.6 K/mm3 (1.3-6.7); Neutrophils Percent Auto 67.6 % (45.5-73.1); Platelet Count Result 220 k/mm3 (150-375); Red Blood Count 4.77 M/mm3 (4.2-5.4); Red Cell Distribution Width 16.1 % (11.5-14.5); White Blood Count 11.2 K/mm3 (4.5-10.0)
--- NOTE | 2022-05-09 02:22 | WPDANESEPP ---
Anes - Eval Pre Procedure Procedure: Labor epidural Date/Time: 05/09/22 02:22 Surgeon: Zachery Preop Diagnosis: Abdominal pain with contractions Pre Op Diagnosis: Contractions Patient Data Age: 26 Gender: F Height: 1.57 m Weight: 79.5 kg Last Vital Signs Pulse 76 05/09/22 01:00 BP 127/86 05/09/22 01:00 Allergies Allergy/AdvReac Type Severity Reaction Status Date / Time No Known Allergies Allergy Verified 11/27/21 11:29 Home Medications Medication Instructions Recorded Confirmed Type albuterol sulfate 90 mcg/actuation 1 puff inhalation Q4H PRN 12/19/20 09/11/21 Rx aerosol inhaler (Ventolin HFA) shortness of breath or wheezing #8.5 grams cetirizine 10 mg tablet (All Day 10 mg PO DAILY PRN Allergy Symptoms 12/19/20 09/11/21 History Allergy (cetirizine)) ondansetron HCl 4 mg tablet 4 mg PO Q8H PRN nausea and 07/12/21 09/11/21 Rx vomiting #30 tabs fluoxetine 20 mg capsule 20 mg PO DAILY 11/27/21 History Laboratory Tests 05/08/22 05/09/22 05/09/22 23:59 00:00 00:00 WBC 11.2 K/mm3 H K/mm3 (4.5-10.0) RBC 4.77 M/mm3 M/mm3 (4.2-5.4) Hgb 11.1 g/dL L D g/dL (12.0-15.0) Hct 35.6 % L % (37.0-47.0) MCV 74.6 fl L fl (80-100) MCH 23.3 pg L pg (26-34) MCHC 31.2 g/dl L g/dl (32-36) RDW 16.1 % H % (11.5-14.5) Plt Count 220 k/mm3 k/mm3 (150-375) MPV 10.2 fl fl (7.4-10.4) Immature Gran % (Auto) 0.9 % H % (0-0.5) Neut % (Auto) 67.6 % % (45.5-73.1) Lymph % (Auto) 18.3 % % (18.3-44.2) [place] % (Auto) 9.8 % H % (2.6-8.5) Eos % (Auto) 3.0 % % (0-4.4) Baso % (Auto) 0.4 % % (0.2-1.2) Lymph # (Auto) 2.04 K/mm3 K/mm3 (0.9-3.2) [place] # (Auto) 1.1 K/mm3 H K/mm3 (0.1-0.6) Eos # (Auto) 0.3 K/mm3 K/mm3 (0-0.3) Baso # (Auto) 0.0 K/mm3 K/mm3 (0.0-0.1) Abs Immat Gran (auto) 0.10 K/mm3 H K/mm3 (0.00-0.031) Absolute Neuts (auto) 7.6 K/mm3 H K/mm3 (1.3-6.7) Absolute Nucleated RBC 0.0 K/mm3 K/mm3 (0.0-0.012) Nucleated RBC % 0.0 % % (0.0-0.2) RPR Pending Blood Type A Negative Antibody Screen Positive Antibody Identification Inconclusive Antigen Identification Cancelled RUSSELL, IgG Interpret Negative RUSSELL, Poly Interpret Negative RUSSELL, Complement Interp Not Performed : gestational age HCG: positive Patient hx anesthesia problems: none Family hx anesthesia problems: none Results Review: All pre-operative results and documents have been reviewed as part of the pre-operative evaluation. 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 Remove/insert IUD Laparoscopic in 2020 per patient questionnaire Right knee sprain Wears glasses Weight gain Surgical History Surgical History History of colon surgery colonoscopy in 2019 Family History Family History Other Arthritis Asthma Carcinoma of colon Depression Diabetes mellitus HLD (hyperlipidemia) Hypertension Thyroid cancer Social History Social History (Updated 11/27/21 @ 14:40 by Nataly Coronado MA) Smoking status: Former smoker Tobacco type: e-cigarettes/vaping Alcohol intake: current Alcohol use details: few times a week will have some wine Substance use: current Substance use type: marijuana Other substance usage details: CIGERETTES FOR 2 YEARS AND MARAJUANA FOR A FEW MONTHS Lack of Transportation: No
[2022-05-09] MEDS: LACTATED RINGERS 1,000 ML 125 ML IV CONT (04:23)
[2022-05-09] MEDS: AMPICILLIN 1 GM/NS 50 ML 1 GM/50 ML BAG IVPB (04:24)
[2022-05-09] MEDS: ONDANSETRON INJ 4 MG/2 ML VIAL IV PUSH (04:42)
--- NOTE | 2022-05-09 05:22 | WPDOBADMIT ---
Obstetrics - Admit Note Admission Note: record reviewed. Additions to the history and/or subsequent changes in the physical findings follow. 26 y/o at 39 1/7 weeks with contractions. Labor diagnosed. Now comfortable with epidural. GBS bacteruria, receiving ampicillin. AVSS NST reactive TOCO: contractions every 2-4 min ABD soft, nontender, gravid, vertex EXT nontender Cervix 9/100/0. AROM with clear fluid. Vertex. A: IUP at term with labor. GBS bacteruria. P: Anticipate .
[2022-05-09] MEDS: OXYTOCIN 30 UNITS/NS 500 ML 30 UNITS/500 ML BAG 999 UNITS IV CONT (06:05)
--- NOTE | 2022-05-09 06:19 | PM.OBPRVD ---
OB - Delivery Note Procedure Delivery date: 05/09/22 Procedure: Induction method: None Delivery monitor: External FHT and External Uterine Route of delivery: Laceration Description: None Quantitative Blood Loss (ml): 85 Anesthesia type: Epidural Disposition: PACU Complications: None Narrative: 26 y/o at 39 1/7 weeks gestation who presented to the hospital with contractions. Labor was diagnosed. She received ampicillin for GBS bacteruria. Labor progressed without stimulation. She received an epidural for pain control. Amniotomy was performed with return of clear fluid. Her labor progressed and her cervix dilated completely. She pushed with good effort and delivered the infant's head to the perineum. A loose nuchal cord x 2 was splinted and the body delivered. The cord was reduced, and the nose and mouth were bulb suctioned. After a delay, the cord was clamped and cut. The was handed off the field. Cord blood was collected. The placenta delivered spontaneously and was grossly normal in appearance. The usual 3 vessel cord was noted. The perineum was intact. Needle and instrument counts were correct. The patient was taken to recovery room in stable condition. The went to the nursery in stable condition. I was present and scrubbed for the entire delivery. [place] Baby Date of : 05/09/22 Time of : 05:59 Weeks of gestation at delivery: 39 Infant gender: Male Weight (pounds): 7 Weight (ounces): 7 presentation: vertex position: Left Occiput Anterior Placenta delivery description: Spontaneous and Normal Configuration Cord Vessel Description: 3 Vessels, Nuchal Cord (x2) and Delayed Cord Clamping score one minute: 8 score five minutes: 9
--- NOTE | 2022-05-09 06:23 | PM.OBDSVD ---
DS: Admitting Diagnosis Discharge Date 05/10/22 Admitting Diagnosis IUP at 39 1/7 weeks Labor GBS bacteruria DS: Discharge Diagnosis Discharge Diagnosis (1) (normal spontaneous vaginal delivery): Code(s): O80 - Encounter for full-term uncomplicated delivery Status: Acute (2) GBS bacteriuria: Code(s): R82.71 - Bacteriuria Status: Acute OB - DS: Summary OB Procedures : None OB Procedures Intrapartum: GBS prophylaxis OB Procedures: : RHo (D) lg Time Spent with Patient Time attestation: Total time spent providing and/or coordinating discharge services: DS: Data Data Completed and Pending Labs on day of discharge: Labs from last 24 hours 05/09/22 05/09/22 05/09/22 05:57 00:00 00:00 WBC RBC Hgb Hct MCV MCH MCHC RDW Plt Count MPV Immature Gran % (Auto) Neut % (Auto) Lymph % (Auto) [place] % (Auto) Eos % (Auto) Baso % (Auto) Lymph # (Auto) [place] # (Auto) Eos # (Auto) Baso # (Auto) Abs Immat Gran (auto) Absolute Neuts (auto) Absolute Nucleated RBC Nucleated RBC % Urine Opiates Screen Pending Urine Methadone Screen Pending Ur Barbiturates Screen Pending Ur Phencyclidine Scrn Pending Ur Amphetamine Screen Pending U Benzodiazepines Scrn Pending Urine Cocaine Screen Pending U Cannabinoids Screen Pending RPR Pending Blood Type A Negative Antibody Screen Positive Antibody Identification Inconclusive Antigen Identification Cancelled RUSSELL, IgG Interpret Negative RUSSELL, Poly Interpret Negative RUSSELL, Complement Interp Not Performed 05/08/22 23:59 WBC 11.2 H RBC 4.77 Hgb 11.1 L D Hct 35.6 L MCV 74.6 L MCH 23.3 L MCHC 31.2 L RDW 16.1 H Plt Count 220 MPV 10.2 Immature Gran % (Auto) 0.9 H Neut % (Auto) 67.6 Lymph % (Auto) 18.3 [place] % (Auto) 9.8 H Eos % (Auto) 3.0 Baso % (Auto) 0.4 Lymph # (Auto) 2.04 [place] # (Auto) 1.1 H Eos # (Auto) 0.3 Baso # (Auto) 0.0 Abs Immat Gran (auto) 0.10 H Absolute Neuts (auto) 7.6 H Absolute Nucleated RBC 0.0 Nucleated RBC % 0.0 Urine Opiates Screen Urine Methadone Screen Ur Barbiturates Screen Ur Phencyclidine Scrn Ur Amphetamine Screen U Benzodiazepines Scrn Urine Cocaine Screen U Cannabinoids Screen RPR Blood Type Antibody Screen Antibody Identification Antigen Identification RUSSELL, IgG Interpret RUSSELL, Poly Interpret RUSSELL, Complement Interp Discharge Plan Discharge Attending physician on discharge: Wolf Bingham Discharging Clinician: Wolf Bingham Patient Disposition: Home, Self-Care Activity: pelvic rest Diet: regular Discharge Instructions: Call or return if temperature above 100.4? F, increased abdominal pain, increased vaginal bleeding or any new problems. Stand Alone Forms: General Discharge Information Follow-up/Referrals: Wolf Bingham MD [Physician] - 6 Weeks Discharge Medications: New ibuprofen 600 mg tablet 600 mg PO Q6H PRN (Reason: cramps) Qty: 30 0RF Continued cetirizine [All Day Allergy (cetirizine)] 10 mg tablet 10 mg PO DAILY PRN (Reason: Allergy Symptoms) albuterol sulfate [Ventolin HFA] 90 mcg/actuation HFA aerosol inhaler 1 puff inhalation Q4H PRN (Reason: shortness of breath or wheezing) Qty: 8.5 1RF fluoxetine 20 mg capsule 20 mg PO DAILY Discontinued ondansetron HCl 4 mg tablet 4 mg PO Q8H PRN (Reason: nausea and vomiting) Qty: 30 0RF Date of admission: 05/08/22 22:55 Primary Care Provider: Forrest,Andreina Boles Admitting Provider: Wolf Bingham Attending physician on admission: Wolf Bingham Condition: Stable
[2022-05-09 06:31] LABS: Amphetamine Screen Urine Negative (Negative); Barbiturate Screen Urine Negative (Negative); Benzodiazepines Screen Urine Negative (Negative); Cannabinoid Screen Urine Positive (Negative); Cocaine Screen Urine Negative (Negative); Methadone Screen Urine Negative (Negative); Opiate Screen Urine Negative (Negative); Phencyclidine Screen Urine Negative (Negative)
--- NOTE | 2022-05-09 08:32 | LDADM ---
This patient, Candace Fletcher, was admitted to Labor/Delivery/Recovery 105 on 05/08/22 at 22:55. Plans for labor, pain management and were discussed with patient. Patient/family oriented to hospital policies and general routines including ID bracelet, bed and alarms, visiting hours, pain management, procedures, bathroom and other care routines, personal items, smoking policy, room service/diet and guest tray routines, security routines, and visiting hours. Patient/Family are encouraged to report perceived risks to care and to ask questions if they do not understand what they are told or what they should do. See OBIX for further documentation.
[2022-05-09] MEDS: WITCH HAZEL 40 PADS 1 PAD TOPICAL (08:57)
[2022-05-09 15:31] LABS: Rapid Plasma Reagin Non-Reactive (NonReactive)
--- NOTE | 2022-05-09 17:01 | PC.NURSE ---
1041 - Introduction was made and it was not a good time for the mother to receive assistance. Mother is in the restroom and has just finished . RN offered assistance if there's pain with latching or if her infant doesn't latch. Mother voiced understanding of the information.
[2022-05-10 00:16] VITALS: BP 119/85; PULSE 76; RESP 18; TEMP 36.8
[2022-05-10 03:31] VITALS: BP 119/73; PULSE 76
[2022-05-10 04:00] VITALS: BP 119/73; PULSE 76; RESP 18; TEMP 36.8
[2022-05-10 05:06] LABS: Hematocrit 33.7 % (37.0-47.0); Hemoglobin 10.2 g/dL (12.0-15.0)
[2022-05-10 07:46] VITALS: BP 141/69; PULSE 70
[2022-05-10] MEDS: MULTIVIT/MIN/PREN/FOL AC/IRON TABLET 1 TAB PO (07:58)
[2022-05-10] MEDS: DOCUSATE SODIUM 100 MG CAPSULE PO (07:58)
[2022-05-10 08:02] VITALS: BP 141/69; PULSE 80; RESP 16; TEMP 36.3; O2SAT 100
[2022-05-10] MEDS: FLUoxetine HCL 20 MG CAPSULE PO (10:52)
[2022-05-10] MEDS: RHO(D) IMMUNE GLOBULIN 300 MCG/2 ML SYRINGE IM (11:50)
--- NOTE | 2022-05-10 11:58 | PM.OBPNVD ---
OB - PN: Subj Subjective Date/time seen: 05/10/22 11:58 Narrative: Pain OK. Would like circumcision for son. Would like to go home. OB - PN: Obj Data Labs CBC & Chem 7: 05/10/22 03:31 Labs: Laboratory Results - last 24 hr 05/09/22 05/10/22 05/10/22 00:00 03:31 03:31 Hgb 10.2 L Hct 33.7 L RPR Non-reactive Blood Type A Negative Antibody Screen Positive Antibody Identification Inconclusive Antigen Identification Cancelled RUSSELL, IgG Interpret Not Performed RUSSELL, Poly Interpret Negative RUSSELL, Complement Interp Not Performed Screen Negative Baby's Blood Type A pos Baby's RUSSELL Positive Doses of RhIg Required 1 OB - PN A/P Plan Comments: A: PPD#1, doing well. P: Reviewed circ. Home to f/u 6 weeks. Exam Psych: Other: AVSS ABD soft, nontender, fundus firm EXT nontender
--- NOTE | 2022-05-10 14:35 | PC.NURSE ---
late entry - [phone] Consulted with patient to assess her needs. Mother had just finished a and denies pain. Mother voiced understanding of how and when to detach from the breast if the latch is suboptimal and how to latch effectively. Mother also states her sister is a W[employer] CLS and she has support if she should need it.
== END 2022-05-10 13:52 | disposition home or self-care (01) | DRG 807 ==
LOC: ANHLDR 05-09 12:07 → ANHOBPP 05-09 15:25
PROVIDERS: Admitting Provider Obstetrics & Gynecology; PCP Nurse Practitioner Family; Visit Provider Obstetrics & Gynecology
DX: O99.824 Streptococcus B carrier state complicating childbirth (principal); Z37.0 Single live birth; O69.81X0 Labor and delivery complicated by cord around neck, without compression, not applicable or unspecified; Z3A.39 39 weeks gestation of pregnancy
CPT/HCPCS: 36415; 80307; 85014; 85018; 85025; 85461; 86592; 86850; 86880; 86900; 86901; 86902; 90384; A9270; J0290; J2405; J2590; J2790; J2795; J7120

== ENCOUNTER 2022-10-04 10:32 | Outpatient (CLI) | payer BC, OTHER, SELFPAY ==
--- NOTE | ~2022-10-04 | MR_ITS ---
EXAMINATION: MR cervical spine wo con DATE: 10/04/2022 11:29 INDICATION: Chronic neck pain. TECHNIQUE: Magnetic resonance imaging (MRI) of the cervical spine was performed without intravenous c ontrast. Sequences included sagittal T2-weighted FSE, sagittal T2-weighted FS FSE, sagittal T1-weight ed FSE, axial MERGE, and axial T2-weighted FSE. COMPARISON: None FINDINGS: There is kyphosis of cervical spine. Vertebral body heights are normal. Intervertebral disc heights are normal. The spinal cord signal intensity is normal. The following disc levels are specif ically discussed: C2-C3: The disc does not extend beyond the endplate margin. There is no uncovertebral joint osteoarth ritis. There is severe bilateral facet joint osteoarthritis. There is no neural foraminal stenosis. T here is no central canal stenosis. C3-C4: There is a left central protrusion. There is no uncovertebral joint osteoarthritis. There is m ild bilateral facet joint osteoarthritis. There is no neural foraminal stenosis. There is no central canal stenosis. C4-C5: There is a left central protrusion. There is no uncovertebral joint osteoarthritis. There is m ild bilateral facet joint osteoarthritis. There is no neural foraminal stenosis. There is mild centra l canal stenosis. C5-C6: The disc is mildly bulging. There is mild bilateral uncovertebral joint osteoarthritis. There is no facet joint osteoarthritis. There is no neural foraminal stenosis. There is mild central canal stenosis. C6-C7: There is a central extrusion. There is no uncovertebral joint osteoarthritis. There is mild bi lateral facet joint osteoarthritis. There is no neural foraminal stenosis. There is mild central renetta l stenosis. C7-T1: The disc does not extend beyond the endplate margin. There is no uncovertebral joint osteoarth ritis. There is mild bilateral facet joint osteoarthritis. There is no neural foraminal stenosis. The re is no central canal stenosis. IMPRESSION: 1. Mild cervical spondylosis. Reviewed, dictated and finalized at location A.
--- NOTE | ~2022-10-04 | MR_ITS ---
EXAMINATION: MR lumbar spine wo con DATE: 10/04/2022 11:29 INDICATION: Chronic low back pain. TECHNIQUE: Magnetic resonance imaging (MRI) of the lumbar spine was performed without intravenous con trast. Sequences included sagittal T2-weighted FSE, sagittal T2-weighted FS FSE, sagittal T1-weighted FSE, and axial T2-weighted FSE. COMPARISON: None FINDINGS: Bone alignment is normal. There is mild chronic anterior wedging of T12 and L1 vertebral kandace dies. There are Schmorl's nodes at most levels. Intervertebral disc heights are normal. The distal sp inal cord signal intensity is normal. The conus medullaris is at L2. The following disc levels are sp ecifically discussed: L1-L2: There is a central protrusion. There is no facet joint osteoarthritis. There is no neural fora kike stenosis. There is mild central canal stenosis. L2-L3: The disc does not extend beyond the endplate margin. There is no facet joint osteoarthritis. T here is no neural foraminal stenosis. There is no central canal stenosis. L3-L4: The disc is mildly bulging. There is moderate right and mild left facet joint osteoarthritis. There is mild bilateral neural foraminal stenosis. There is no central canal stenosis. L4-L5: The disc does not extend beyond the endplate margin. There is severe bilateral facet joint ost eoarthritis. There is no neural foraminal stenosis. There is no central canal stenosis. L5-S1: The disc does not extend beyond the endplate margin. There is severe bilateral facet joint ost eoarthritis. There is no neural foraminal stenosis. There is no central canal stenosis. IMPRESSION: 1. Mild lumbar spondylosis. Reviewed, dictated and finalized at location A. IMPRESSION: 1. Mild lumbar spondylosis.
== END 2022-10-04 10:33 | disposition home or self-care (01) ==
LOC: CHSIMG 10:34
PROVIDERS: PCP Nurse Practitioner Family; Visit Provider Nurse Practitioner Family
DX: G89.29 Other chronic pain (principal); M54.9 Dorsalgia, unspecified; M54.2 Cervicalgia; M43.02 Spondylolysis, cervical region; M43.06 Spondylolysis, lumbar region
CPT/HCPCS: 72141; 72148

== ENCOUNTER 2023-01-22 11:18 | Outpatient (CLI) | payer BC, OTHER, SELFPAY ==
[2023-01-22 11:46] LABS: Basophils Absolute Auto 0.05 K/mm3 (0.00-0.10); Basophils Percent Auto 0.6 % (0.0-1.0); Eosinophils Absolute Auto 0.47 K/mm3 (0.02-0.50); Eosinophils Percent Auto 6.1 % (1.0-6.0); Hematocrit 41.1 % (35.0-49.0); Hemoglobin 13.2 g/dL (12.0-15.0); Immature Granulocyte Absolute 0.02 K/mm3 (0.00-0.00); Immature Granulocyte Percent A 0.3 % (0.0-0.0); Lymphocytes Absolute Auto 2.01 K/mm3 (1.10-4.50); Lymphocytes Percent Auto 26.1 % (18.0-42.0); Mean Corpuscular HGB Conc 32.1 g/dL (32.0-36.0); Mean Corpuscular Hemoglobin 26.3 pg (27.0-31.0); Mean Corpuscular Volume 81.9 fL (78.0-102.0); Mean Platelet Volume 10.5 fl (9.2-11.8); Monocytes Absolute Auto 0.73 K/mm3 (0.10-0.90); Monocytes Percent Auto 9.5 % (2.0-11.0); Neutrophils Absolute Auto 4.4 K/mm3 (1.7-7.2); Neutrophils Percent Auto 57.4 % (50.0-70.0); Platelet Count Result 344 K/mm3 (150-420); Red Blood Count 5.02 M/mm3 (4.20-5.40); Red Cell Distribution Width 12.9 % (11.6-14.4); White Blood Count 7.7 K/mm3 (4.8-10.8)
[2023-01-22 12:44] LABS: CRP 0.5 mg/dL (0.0-0.9); Thyroid Stimulating Hormone 1.02 uIU/mL (0.36-3.74)
== END 2023-01-22 11:19 | disposition home or self-care (01) ==
PROVIDERS: PCP Nurse Practitioner Family; Visit Provider Nurse Practitioner Family
DX: L70.9 Acne, unspecified (principal); L03.90 Cellulitis, unspecified; L98.9 Disorder of the skin and subcutaneous tissue, unspecified
CPT/HCPCS: 36415; 84443; 85025; 86038; 86140; 87070; 87147; 87186; 87205

== ENCOUNTER 2023-02-20 12:46 | Outpatient (CLI) | payer BC, OTHER, SELFPAY ==
--- NOTE | ~2023-02-20 | US_ITS ---
US pelvic complete w TV DATE: 02/20/2023 13:51 INDICATION: Pelvic and perineal pain. Bilateral flank pain. TECHNIQUE: Real-time imaging via transabdominal and transvaginal approaches COMPARISON: 07/12/2021 pelvic ultrasound examination, reported normal FINDINGS: The uterus measures 7 cm vertical dimension, approximately 3 cm maximal anteroposterior dim ension. The central endometrial echo complex measures approximately 6 mm anteroposterior dimension, w ithin normal range. Right ovary measures 2.5 x 1.7 x 2.3 cm with vascular flow. Left ovary measures 2.2 x 1.9 x 1.4 cm, with vascular flow. No pelvic mass lesion or abnormal pelvic fluid collection is detected. IMPRESSION: No significant abnormality Reviewed, dictated and finalized at Location A. Reviewed, dictated and finalized at location B. IMPRESSION: No significant abnormality
--- NOTE | ~2023-02-20 | US_ITS ---
US renal BI DATE: 02/20/2023 13:51 INDICATION: Bilateral flank and pelvic pain for one week TECHNIQUE: Real-time imaging of kidneys and urinary bladder COMPARISON: 06/05/2021 KUB FINDINGS: Right kidney measures approximately 9.4 cm length, left kidney 10.3 cm length. No renal mas s lesion or hydronephrosis is detected. Urinary bladder is evacuated and not optimally evaluated. IMPRESSION: No significant abnormality kidneys is detected Reviewed, dictated and finalized at Location A. Reviewed, dictated and finalized at location B.
[2023-02-20 12:52] LABS: Appearance Urine Clear (Clear); Bilirubin Urine Negative (Negative); Blood Urine 3+ (Negative); Color Urine Light Yellow (Yellow); Glucose Urine UA Negative (Negative); Ketones Urine Negative (Negative); Leukocyte Esterase Ur Negative LEU/UL (Negative); Nitrate Urine Negative (Negative); Protein Urine Negative (Negative); Specific Grav Ur <= 1.005 (1.010-1.020); Urobilinogen Urine 0.2 mg/dL (0.2-1.0)
[2023-02-20 12:54] LABS: Add Urine Microscopic? YES
[2023-02-20 12:55] LABS: Bacteria Urine Rare /hpf; Squamous Epithelial Cell Urine Rare /hpf (Few); WBC Urine None seen /hpf (0-3)
== END 2023-02-20 12:47 | disposition home or self-care (01) ==
PROVIDERS: PCP Nurse Practitioner Family; Visit Provider Nurse Practitioner Family
DX: R10.2 Pelvic and perineal pain (principal); R10.9 Unspecified abdominal pain
CPT/HCPCS: 76775; 76830; 76856; 81001

== ENCOUNTER 2023-06-30 10:57 | Emergency (ER) | payer OTHER, SELFPAY ==
--- NOTE | ~2023-06-30 | XR_ITS ---
XR hip LT 2V w AP pelvis DATE: 06/30/2023 11:47 INDICATION: Lateral left hip pain TECHNIQUE: AP pelvis. AP and lateral views of left hip COMPARISON: None FINDINGS: No pelvic fracture or bone destruction. Normal alignment at the pubic symphysis and sacroil iac joints. Hip joint spaces are symmetric and well preserved. No fracture, dislocation, avascular necrosis or bone destruction of the left hip. IMPRESSION: Negative Reviewed, dictated and finalized at location A. FING AND SCHEDULING COORDINATOR IMPRESSION: Negative
[2023-06-30 11:06] VITALS: BP 110/63; PULSE 87; RESP 16; TEMP 36.8; O2SAT 97
--- NOTE | 2023-06-30 11:33 | ED.GENADULT ---
HPI - General Adult General Chief complaint: Extremity Injury, Lower Stated complaint: L HIP PAIN Source: patient Mode of arrival: ambulatory Limitations: no limitations History of Present Illness HPI narrative: Patient presents for evaluation pain in her left hip and pelvis that started last Saturday. She was carrying her child upstairs when she tripped and fell forward. She did not fall to the floor but thinks she could have bumped her left hip against the wall. Later that day she bumped her left hip against a counter. Since that time she has experienced constant pain in the left hip. Pain is sharp 4-7/10 in severity. She has pain which radiates down her LLE. She has taken 600mg ibuprofen and used marijuana without much improvement. She is on cymbalta for fibromyalgia and sees pain management for DDD. She reports parethesias in LLE Related Data Allergies Allergy/AdvReac Type Severity Reaction Status Date / Time No Known Allergies Allergy Verified 02/20/23 10:40 Review of Systems Review of Systems: CONSTITUTIONAL: Denies fever, chills, or sweats. EYES: Denies visual changes, redness, or discharge. ENT: Denies rhinorrhea, congestion, sore throat, or otalgia. CARDIOVASCULAR: Denies chest pain, palpitations, or edema. RESPIRATORY: Denies cough or dyspnea. GASTROINTESTINAL: Denies abdominal pain, nausea, vomiting, or diarrhea. GENITOURINARY: Denies dysuria or hematuria. SKIN: Denies rash or itching. MUSCULOSKELETAL: Reports left hip pain. Reports chronic back pain which is unchanged from her baseline NEUROLOGIC: Denies headache, numbness, dizziness, or weakness. PSYCHIATRIC: Denies anxiety or depression. 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 Remove/insert IUD Laparoscopic in 2020 per patient questionnaire Right knee sprain Wears glasses Weight gain Surgical History Surgical History History of colon surgery colonoscopy in 2019 Family History Family History Other Arthritis Asthma Carcinoma of colon Depression Diabetes mellitus HLD (hyperlipidemia) Hypertension Thyroid cancer Social History Social History Smoking status: Never smoker Tobacco type: e-cigarettes/vaping Alcohol intake: current Alcohol use details: few times a week will have some wine Substance use: never Substance use type: marijuana Other substance usage details: CIGERETTES FOR 2 YEARS AND MARAJUANA FOR A FEW MONTHS Lack of Transportation: No Lack of Food: Never True Current Housing: I Have Housing Concerned About Future Housing: No Difficulty Paying Gas/Electric Bills: No Difficulty Paying for Meds: No Currently Unemployed: YES Education: High School Diploma/GED Difficulty w/ Childcare or Family Care: No Living arrangements: with family Additional living arrangements comments: boyfriend and child Occupation/Education: other Gender identity (if verbalized by the patient): Female Spiritual care concerns: No Exam Narrative: GENERAL: Well-appearing, well-nourished, and in no acute distress. HEAD: Normocephalic, atraumatic. EYES: PERRLA and EOMI. ENT: Nares clear, no rhinorrhea or epistaxis. Mucous membranes moist. Oropharynx without tonsillar hypertrophy exudate or other lesions. Bilateral TMs pearly peters nonbulging NECK: Supple. No adenopathy or masses. No carotid bruits or JVD CHEST: Clear to auscultation. No respiratory distress. No wheezes rales or rhonchi HEART: Regular rate and rhythm. No murmur heard. Normal peripheral pulses. ABDOMEN: Sof
== END 2023-06-30 12:27 | disposition home or self-care (01) ==
PROVIDERS: Emergency Provider Nurse Practitioner; PCP Nurse Practitioner Family
DX: S70.02XA Contusion of left hip, initial encounter (principal); F17.290 Nicotine dependence, other tobacco product, uncomplicated; W01.0XXA Fall on same level from slipping, tripping and stumbling without subsequent striking against object, initial encounter
CPT/HCPCS: 73502; 99213; G0463

== ENCOUNTER 2023-07-16 09:17 | Outpatient (RCR) | payer OTHER, SELFPAY ==
--- NOTE | 2023-07-12 09:18 | PCPTNOTE ---
patient cancelled her evaluation today due to issues with getting a ride to therapy.
--- NOTE | 2023-07-16 17:23 | OPREHPOC ---
Outpatient Therapy Plan of Care This is a Multidisciplinary Plan of Care that may contain components documented by all disciplines (PT, OT, and ST.) PT Problem 1 PT Problem #1 Knowledge Deficit PT Goal 1 Goal 1. independent and compliant with HEP Target Visit 5 PT Problem 2 PT Problem #2 Pain PT Goal 1 Goal 1. decrease pain at worst to 3/10 in the anterior L hip to improve quality of life and functional activity performance Target Visit 10 PT Problem 3 PT Problem #3 Impaired Range of Motion PT Goal 1 Goal 1. improve L hip active flexion to 115 degrees 2. improve L hip active ER to 50 degrees Target Visit 10 PT Problem 4 PT Problem #4 Impaired Strength PT Goal 1 Goal 1. 5/5 L ankle DF and PF 2. 5/5 L hip strength overall Target Visit 10 PT Problem 5 PT Problem #5 Impaired Functional Mobil PT Goal 1 Goal 1. patient to get rid of cane for ambulation Target Visit 5 PT Goal 2 Goal 1. normal gait mechanics without pain on level surfaces 2. patient to ambulate up and down steps with reciprocal mechanics and no pain 3. LEFS to display less than 40% functional deficits Target Visit 10
--- NOTE | 2023-07-16 17:23 | PTOPEVAL1 ---
Assessment and note entered by JT File, PT Evaluation Information Assessment Status Evaluation Diagnosis L hip pain, fall Onset 06/25/23 Subjective Information patient reports she fell up the steps at home when carrying her son. she reports the L LE slid behind her during the fall. she reports she was able to get up and finish getting her son up the steps, but had pain immediately. she reports she has increased pain with trying to bring the L knee to the chest, walking, standing, and stair ambulation. she reports it hurts on the front and the side of the L hip. she reports she has had xrays which were negative, but no MRI as of this date. she has tried mm relaxors that help, but do not eliminate the pain. Reported Pain Level Pain Score 5: Self Report Assessment PT Clinical Summary mrs. thorne is a 27 yo woman who presents to skilled PT services for evaluation and treatment of L hip pain following a fall at home. she presents today with decreased active rom, pain with palpation, pain with mmt and mm contraction, abnormal gait mechanics, and limited functional activity performance. she would benefit from an MRI to rule out any soft tissue injuries requiring more immediate attention. in the mean time, she would benefit from continued skilled PT to address her objective/functional deficits and return to her prior level functional activity performance/ quality of life. Plan of Care Interventions Electrical Stimulation,Gait Training,Hot Pack/Cold Pack,Manual Therapy,Neuro Re-education,Patient/ Caregiver Educati,Therapeutic Activities, Therapeutic Exercise PT Services Indicated Yes Treatment Frequency and 2x weekly for 10 visits Duration These treatments will address the objective and functional deficits as defined above. The patient will be advanced safely and appropriately in order for the patient to progress towards his/her prior level of function. Additional exercises will be introduced and as well as a comprehensive home exercise program upon discharge, if needed, ?to ensure carryover of functional gains achieved in the clinic. This treatment plan has been reviewed and agreement upon by the patient.
--- NOTE | 2023-08-02 11:04 | PCPTNOTE ---
patient called and reports she is sick today. she was scheduled for next week.
--- NOTE | 2023-08-14 14:29 | PCPTNOTE ---
Patient cancelled session today. She reports she does not have a vehicle today.
--- NOTE | 2023-08-15 15:01 | PCPTNOTE ---
patient had to cancel skilled PT today due to not having a ride.
--- NOTE | 2023-08-21 07:52 | PCPTNOTE ---
Patient cancelled session due to illness.
--- NOTE | 2023-08-23 08:29 | PCPTNOTE ---
Patient cancelled session due to illness. Patient states she will call to reschedule when she feels better.
== END 2023-08-09 20:00 | disposition home or self-care (01) ==
LOC: CHSPT 09:17
PROVIDERS: PCP Family Medicine; Visit Provider Nurse Practitioner Family
DX: M25.552 Pain in left hip (principal); W10.8XXA Fall (on) (from) other stairs and steps, initial encounter
CPT/HCPCS: 97014; 97110; 97140; 97161; G0283

== ENCOUNTER 2023-08-30 10:46 | Outpatient (CLI) | payer OTHER, SELFPAY ==
[2023-08-30 11:06] LABS: Basophils Absolute Auto 0.02 K/mm3 (0.00-0.10); Basophils Percent Auto 0.4 % (0.0-1.0); Eosinophils Absolute Auto 0.16 K/mm3 (0.02-0.50); Hemoglobin 13.1 g/dL (12.0-15.0); Immature Granulocyte Absolute 0.02 K/mm3 (0.00-0.00); Immature Granulocyte Percent A 0.4 % (0.0-0.0); Lymphocytes Absolute Auto 1.67 K/mm3 (1.10-4.50); Lymphocytes Percent Auto 31.3 % (18.0-42.0); Mean Corpuscular HGB Conc 32.8 g/dL (32.0-36.0); Mean Corpuscular Hemoglobin 25.7 pg (27.0-31.0); Mean Corpuscular Volume 78.6 fL (78.0-102.0); Mean Platelet Volume 9.5 fl (9.2-11.8); Monocytes Absolute Auto 0.64 K/mm3 (0.10-0.90); Neutrophils Absolute Auto 2.8 K/mm3 (1.7-7.2); Neutrophils Percent Auto 52.9 % (50.0-70.0); Platelet Count Result 308 K/mm3 (150-420); Red Blood Count 5.09 M/mm3 (4.20-5.40); Red Cell Distribution Width 13.2 % (11.6-14.4); White Blood Count 5.3 K/mm3 (4.8-10.8)
[2023-08-30 12:05] LABS: Alanine Aminotransferase 82 U/L (14-59); Albumin Level 3.5 g/dL (3.4-5.0); Alkaline Phosphatase 75 U/L (46-116); Amylase 38 U/L (25-115); Anion Gap 12 mmol/L (8-16); Aspartate Amino Transferase 27 U/L (15-37); Bilirubin,Total 0.3 mg/dL (0.00-1.00); Blood Urea Nitrogen 6 mg/dL (7-18); Calcium 8.8 mg/dL (8.5-10.1); Carbon Dioxide 26 mmol/L (21-32); Chloride 102 mmol/L (98-108); Estimated Glomerular Filt Rate > 60; Glucose 91 mg/dL (70-99); Lipase 26 U/L (16-77); Osmolality Calculated 287 mOsm/kg (285-295); Potassium 4.5 mmol/L (3.5-5.1); Sodium 140 mmol/L (136-145); Total Protein 6.9 g/dL (6.4-8.2)
[2023-08-30 12:37] LABS: Occult Blood Negative (Negative)
== END 2023-08-30 10:47 | disposition home or self-care (01) ==
LOC: CHSLAB 10:47
PROVIDERS: PCP Nurse Practitioner Family; Visit Provider Nurse Practitioner Family
DX: K92.1 Melena (principal)
CPT/HCPCS: 36415; 80053; 82150; 82272; 83690; 85025

== ENCOUNTER 2023-09-10 10:25 | Outpatient (CLI) | payer OTHER, SELFPAY ==
--- NOTE | ~2023-09-10 | US_ITS ---
Abdominal Sonogram: Real-time sonographic imaging of the abdomen was performed. Clinical History: Abdominal pain Findings: The liver appears normal with no evidence of mass lesion or bile duct dilatation. Main por crispin vein demonstrates normal direction of flow. The spleen is normal in size without evidence of foca l lesion. The gallbladder is well distended, and appears normal with no evidence of gallstone or wal l thickening. The common bile duct measures 2 mm. The visualized pancreas, aorta, and IVC are unrema rkable. The right kidney measures 8.8 cm in length and the left kidney measures 9.6 cm. There is no hydronephrosis or renal calculus. Impression: Unremarkable abdominal ultrasound. Reviewed, dictated and finalized at location . Impression: Unremarkable abdominal ultrasound.
== END 2023-09-10 10:26 | disposition home or self-care (01) ==
LOC: CHSIMG 10:26
PROVIDERS: PCP Nurse Practitioner Family; Visit Provider Nurse Practitioner Family
DX: R10.11 Right upper quadrant pain (principal)
CPT/HCPCS: 76700

== ENCOUNTER 2023-09-30 10:05 | Outpatient (CLI) | payer OTHER, SELFPAY ==
--- NOTE | ~2023-09-30 | NM_ITS ---
EXAMINATION: NM hepatobiliary w pharm DATE: 09/30/2023 13:07 INDICATION: Right upper quadrant abdominal pain. COMPARISON: Ultrasound 09/10/2023 TECHNIQUE: 4.8 mCi Tc-99m mebrofenin (Choletec) was administered intravenously. Scintigraphic images of the abdomen were obtained for one hour. Then, 1.4 mcg sincalide (Kinevac) IV was administered, an d imaging was continued for 30 minutes. FINDINGS: There is normal clearance of radiotracer from the blood pool. There is homogeneous tracer u ptake by the liver. Activity progresses to the bowel and gallbladder. Gallbladder ejection fraction (GBEF) was 67%. Note that most patients with gallbladder dysfunction have GBEF < 35%, which overlaps with the broad normal range of 10-90%. IMPRESSION: 1. Normal hepatobiliary scintigraphy. Reviewed, dictated and finalized at location A.
== END 2023-09-30 10:06 | disposition home or self-care (01) ==
LOC: CHSIMG 10:06
PROVIDERS: PCP Nurse Practitioner Family; Visit Provider Nurse Practitioner Family
DX: R10.11 Right upper quadrant pain (principal)
CPT/HCPCS: 78227; A9537; J2805

== ENCOUNTER 2023-10-16 18:31 | Outpatient (CLI) | payer OTHER, SELFPAY ==
[2023-10-21 12:24] LABS: Immunoglobulin A 265 mg/dL (47-310); TTG IGA AB <1.0 U/mL
== END 2023-10-16 18:32 | disposition home or self-care (01) ==
LOC: CHSLAB 18:33
PROVIDERS: PCP Nurse Practitioner Family; Visit Provider Nurse Practitioner Family
DX: K92.1 Melena (principal); R10.11 Right upper quadrant pain; R19.7 Diarrhea, unspecified; R63.4 Abnormal weight loss; R14.0 Abdominal distension (gaseous); R14.3 Flatulence; R11.2 Nausea with vomiting, unspecified
CPT/HCPCS: 36415; 82784; 83516

== ENCOUNTER 2023-10-17 09:48 | Outpatient (CLI) | payer OTHER, SELFPAY ==
[2023-10-23 19:18] LABS: Pancreatic Elastase, Stool >500 mcg/g
[2023-10-24 23:19] LABS: Calprotectin, Stool 17 mcg/g
== END 2023-10-17 09:49 | disposition home or self-care (01) ==
LOC: CHSLAB 09:50
PROVIDERS: PCP Nurse Practitioner Family; Visit Provider Nurse Practitioner Family
DX: R63.4 Abnormal weight loss (principal); R19.7 Diarrhea, unspecified; R10.11 Right upper quadrant pain; K92.1 Melena
CPT/HCPCS: 82653; 83993

== ENCOUNTER 2023-11-21 12:01 | Outpatient (CLI) | payer OTHER, SELFPAY | END 2023-11-21 12:02 | disposition home or self-care (01) | LOC: CHSLAB 12:02 | PROVIDERS: PCP Nurse Practitioner Family; Visit Provider Nurse Practitioner Family | DX: Z32.01 Encounter for pregnancy test, result positive (principal) | CPT/HCPCS: 36415; 84702 ==

== ENCOUNTER 2023-11-28 16:16 | Outpatient (CLI) | payer OTHER, SELFPAY ==
[2023-11-28 16:43] LABS: Basophils Percent Auto 0.4 % (0.2-1.2); Eosinophils Absolute Auto 0.5 K/mm3 (0-0.3); Eosinophils Percent Auto 6.2 % (0-4.4); Hematocrit 38.3 % (37.0-47.0); Hemoglobin 12.5 g/dL (12.0-15.0); Immature Granulocyte Absolute 0.02 K/mm3 (0.00-0.031); Immature Granulocyte Percent A 0.2 % (0-0.5); Lymphocytes Absolute Auto 2.09 K/mm3 (0.9-3.2); Lymphocytes Percent Auto 25.6 % (18.3-44.2); Mean Corpuscular HGB Conc 32.6 g/dl (32-36); Mean Corpuscular Hemoglobin 27.2 pg (26-34); Mean Corpuscular Volume 83.4 fl (80-100); Mean Platelet Volume 10.9 fl (7.4-10.4); Monocytes Absolute Auto 0.6 K/mm3 (0.1-0.6); Monocytes Percent Auto 7.7 % (2.6-8.5); Neutrophils Absolute Auto 4.9 K/mm3 (1.3-6.7); Neutrophils Percent Auto 59.9 % (45.5-73.1); Platelet Count Result 252 k/mm3 (150-375); Red Blood Count 4.59 M/mm3 (4.2-5.4); Red Cell Distribution Width 13.5 % (11.5-14.5); White Blood Count 8.2 K/mm3 (4.5-10.0)
[2023-11-28 22:10] LABS: HIV 1/2 Ab P24 Ag Result Negative (Negative)
[2023-11-29 12:58] LABS: Hepatitis B Surface Antigen Negative (Negative); Rubella IgG Antibody 12.3 IU/ML
[2023-11-29 13:12] LABS: Rapid Plasma Reagin Non-Reactive (NonReactive)
[2023-12-02 14:14] LABS: CMV IgG Antibody <0.60 U/mL
[2023-12-16 14:53] LABS: CF Result NEGATIVE (NEGATIVE)
== END 2023-11-28 16:17 | disposition home or self-care (01) ==
PROVIDERS: PCP Nurse Practitioner Family; Visit Provider Student in an Organized Health Care Education/Training Program
DX: N94.89 Other specified conditions associated with female genital organs and menstrual cycle (principal)
CPT/HCPCS: 36415; 81220; 84702; 85025; 86592; 86644; 86703; 86747; 86762; 86787; 86850; 86900; 86901; 87086; 87340; G0432

== ENCOUNTER 2023-12-31 10:57 | Emergency (ER) | payer OTHER, SELFPAY ==
[2023-12-31 11:12] VITALS: BP 102/74; PULSE 88; RESP 16; TEMP 36.5; O2SAT 100
[2023-12-31 11:15] VITALS: BP 102/74; PULSE 88; RESP 16; TEMP 36.5; O2SAT 100
--- NOTE | 2023-12-31 11:18 | ED.DENTAL ---
HPI - Dental/Oral General Chief complaint: Dental/Oral Stated complaint: MOUTH PAIN Time Seen by Provider: 12/31/23 10:59 Source: patient, RN notes reviewed and old records reviewed Mode of arrival: ambulatory Limitations: no limitations History of Present Illness HPI Narrative: patient with history of extensive dental problems, 14 weeks gestation at this time, presents with complaints of left upper dental pain. She reports this has been present for approximately 1 month, suddenly worsened quite a bit yesterday. She has been in touch with her dentist and her OBGYN. She had been taking Tylenol with poor results, OBGYN prescribed hydrocodone to control pain, she has appointment with dentist on January 07, 2024. She denies any fever, chills, sweats. She voices no other concerns or complaints today. She is able to manage her own secretions, no shortness of breath or drooling noted Related Data Home Medications Medication Instructions Recorded Confirmed vits no.[id number]-ferrous fum 1 tablet PO DIRECTED 11/22/23 12/31/23 28 mg iron-folic acid 800 mcg tablet (Classic ) Allergies Allergy/AdvReac Type Severity Reaction Status Date / Time No Known Allergies Allergy Verified 12/23/23 10:10 Review of Systems Review of Systems: All systems reviewed & are unremarkable except as noted in HPI and below Constitutional: Constitutional: Reports no additional constitutional complaints ENT: Reports system reviewed and no additional complaints, except as documented, Reports bleeding gums, Reports halitosis, Reports facial pain, Reports mouth pain, Denies neck mass, Denies sore throat and Denies throat swelling Cardiovascular: Cardiovascular: Reports no additional cardiovascular complaints Respiratory: Respiratory: Reports no additional respiratory complaints Gastrointestinal: Gastrointestinal: Reports no additional gastrointestinal complaints Genitourinary: Genitourinary: Reports no additional female genitourinary complaints and Reports as per HPI [facility] Past Medical History Medical History Anxiety Asthma Bipolar disorder with depression Dizziness Encounter for IUD removal Fibromyalgia Gastric ulcer History of dental problems 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 Remove/insert IUD Laparoscopic in 2020 per patient questionnaire Right knee sprain Suppression of menses Wears glasses Weight gain Surgical History Surgical History History of colon surgery colonoscopy in 2019 Family History Family History Mother Diabetes mellitus Thyroid activity decreased Hypertension Father Hypertension Sibling Lupus Diabetes mellitus Other Arthritis Asthma Carcinoma of colon Depression HLD (hyperlipidemia) Social History Social History Smoking status: Former smoker Tobacco type: e-cigarettes/vaping Second hand tobacco smoke exposure: No Alcohol intake: former Alcohol use details: few times a week will have some wine, not while . Substance use: former Substance use type: marijuana Other substance usage details: CIGERETTES FOR 2 YEARS AND MARAJUANA FOR A FEW MONTHS Do You Feel Safe in your Home?: Yes Lack of Transportation: No Lack of Food: Never True Current Housing: I Have Housing Concerned About Future Housing: No Difficulty Paying Gas/Electric Bills: No Difficulty Paying for Meds: No Currently Unemployed: YES Education: High School Diploma/GED Difficulty w/ Childcare or Family Care: No Living arrangements: with family Additional living arrangements comments: boyfriend and child Occupation/Education: other Gender identity (if verbalized by the patient): Female Spiritual care concerns: No Comments
== END 2023-12-31 11:33 | disposition home or self-care (01) ==
PROVIDERS: Emergency Provider Nurse Practitioner Family; PCP Nurse Practitioner Family
DX: O99.612 Diseases of the digestive system complicating pregnancy, second trimester (principal); K08.89 Other specified disorders of teeth and supporting structures; Z3A.14 14 weeks gestation of pregnancy; O99.512 Diseases of the respiratory system complicating pregnancy, second trimester; J45.909 Unspecified asthma, uncomplicated; O99.891 Other specified diseases and conditions complicating pregnancy; M79.7 Fibromyalgia
CPT/HCPCS: 99213; G0463

== ENCOUNTER 2024-01-05 10:10 | Observation (INO) | payer OTHER, SELFPAY ==
[2024-01-05] VITALS (8 sets, daily range): BP systolic 108–114; BP diastolic 62–73; PULSE 80–91; O2SAT 100; BMI 26.6
--- NOTE | 2024-01-05 10:22 | PC.NURSE ---
called Dr. Mendosa notified pt admission for nausea and vomiting. Order received for IV fluid, lab and zofran.
[2024-01-05] MEDS: DEXTROSE 5%/LACTATED RINGERS 1,000 ML 999 ML IV CONT (11:08)
[2024-01-05 11:09] LABS: Hematocrit 45.8 % (37.0-47.0); Hemoglobin 14.6 g/dL (12.0-15.0); Mean Corpuscular HGB Conc 31.9 g/dl (32-36); Mean Corpuscular Hemoglobin 27.5 pg (26-34); Mean Corpuscular Volume 86.4 fl (80-100); Platelet Count Result 229 k/mm3 (150-375); Red Cell Distribution Width 13.7 % (11.5-14.5); White Blood Count 10.1 K/mm3 (4.5-10.0)
[2024-01-05] MEDS: FAMOTIDINE 20 MG/2 ML VIAL IV PUSH (11:09)
[2024-01-05] MEDS: ONDANSETRON INJ 4 MG/2 ML VIAL IV PUSH ×2 (11:09→17:01)
[2024-01-05 11:20] LABS: Alanine Aminotransferase 24 U/L (6-35); Albumin Level 4.6 g/dL (3.5-5.1); Alkaline Phosphatase 67 U/L (38-126); Anion Gap 18 mmol/L (4-12); Aspartate Amino Transferase 21 U/L (14-36); Bilirubin,Total 0.7 mg/dL (0.2-1.3); Blood Urea Nitrogen 8 mg/dL (7-17); Calcium 8.7 mg/dL (8.4-10.2); Carbon Dioxide 8 mmol/L (22-30); Chloride 108 mmol/L (98-107); Estimated Glomerular Filt Rate > 60; Glucose 70 mg/dL (65-110); Potassium 4.2 mmol/L (3.4-5.0); Sodium 134 mmol/L (137-145)
[2024-01-05] MEDS: DEXTROSE 5%/LACTATED RINGERS 1,000 ML 200 ML IV CONT (12:06)
[2024-01-05 13:05] LABS: Appearance Urine Cloudy (Clear); Bacteria Urine None Seen /hpf; Bilirubin Urine Negative (Negative); Blood Urine Negative (Negative); Color Urine Yellow (Yellow); Glucose Urine UA 3+ mg/dL (Negative); Ketones Urine 4+ mg/dL (Negative); Leukocyte Esterase Ur Negative LEU/UL (Negative); Nitrate Urine Negative (Negative); Non Pathogenic Casts 0-2; Protein Urine Negative (Negative); RBC Urine 0-2 /hpf (0-2); Specific Grav Ur 1.027 (1.001-1.035); Squamous Epithelial Cell Urine Few /hpf (Few); WBC Urine 0-5 /hpf (0-3); pH Urine 5.5 (5.0-9.0)
[2024-01-05 13:24] LABS: Add Urine Microscopic? YES
--- NOTE | 2024-01-05 13:43 | P.PNOB_ITS ---
OB - Triage/Final Diagnosis Visit Information Comments/Additional reasons for admission: I have assessed the risk for this patient, Candace Fletcher, and determined that she would benefit from observation care. Evaluation Laboratory results: Laboratory Tests 01/05/24 01/05/24 10:53 12:56 WBC 10.1 H RBC 5.30 Hgb 14.6 Hct 45.8 MCV 86.4 MCH 27.5 MCHC 31.9 L RDW 13.7 Plt Count 229 MPV 10.0 Sodium 134 L Potassium 4.2 Chloride 108 H Carbon Dioxide 8 L Anion Gap 18 H BUN 8 Creatinine 0.50 L Estim Creat Clear Calc Not Reportable Estimated GFR > 60 Glucose 70 Calcium 8.7 Total Bilirubin 0.7 AST 21 ALT 24 Alkaline Phosphatase 67 Total Protein 8.0 Albumin 4.6 Urine Color Yellow Urine Appearance Cloudy H Urine pH 5.5 Ur Specific [place] 1.027 Urine Protein Negative Urine Glucose (UA) 3+ H Urine Ketones 4+ H Ur Blood (Man) Negative Urine Nitrate Negative Urine Bilirubin Negative Urine Urobilinogen 1.0 Ur Leukocyte Esterase Negative Urine RBC 0-2 Urine WBC 0-5 Ur Squamous Epith Cells Few Urine Bacteria None seen Urine Casts 0-2 Vital signs: Vital Signs - 24 hr 01/05/24 10:19 01/05/24 10:20 01/05/24 10:21 Pulse Rate 85 Blood Pressure 114/73 Pulse Oximetry 100 100 Oxygen Delivery 01/05/24 10:26 01/05/24 10:30 01/05/24 10:31 Pulse Rate 84 Blood Pressure 108/62 Pulse Oximetry 100 100 Oxygen Delivery 01/05/24 10:36 01/05/24 10:41 01/05/24 11:32 Pulse Rate Blood Pressure Pulse Oximetry 100 100 Oxygen Delivery Room Air Final Diagnosis (1) Nausea and vomiting: Qualifiers: Vomiting type: bilious vomiting Qualified Code(s): R11.14 - Bilious vomiting Code(s): R11.2 - Nausea with vomiting, unspecified Status: Acute
--- NOTE | 2024-01-05 15:11 | PC.NURSE ---
called Dr. Mendosa updated pt condition. Pt feels better with nausea but requesting another bag of fluid due to fatigue. order received for LR bolus after current IVF. May have small meal and if pt can keep food down, may discharge home.
[2024-01-05] MEDS: LACTATED RINGERS 1,000 ML 999 ML IV CONT (15:38)
== END 2024-01-05 17:30 | disposition home or self-care (01) ==
PROVIDERS: Admitting Provider Obstetrics & Gynecology; PCP Nurse Practitioner Family; Visit Provider Obstetrics & Gynecology
DX: O21.9 Vomiting of pregnancy, unspecified (principal)
CPT/HCPCS: 36415; 80053; 81001; 85027; 96361; 96374; 96375; 96376; G0378; G0379; J2405; J7120; J7121

== ENCOUNTER 2024-03-20 10:46 | Observation (INO) | payer OTHER, SELFPAY ==
[2024-03-20 11:00] VITALS: BP 113/62; PULSE 95
[2024-03-20 11:15] VITALS: BP 111/66; PULSE 156
[2024-03-20 11:30] VITALS: BP 106/70; PULSE 94
[2024-03-20 11:45] VITALS: BP 103/61; PULSE 92
[2024-03-20 12:02] LABS: Add Urine Microscopic? NO; Appearance Urine Clear (Clear); Bilirubin Urine Negative (Negative); Blood Urine Negative (Negative); Color Urine Yellow (Yellow); Glucose Urine UA Negative (Negative); Ketones Urine Negative (Negative); Leukocyte Esterase Ur Negative LEU/UL (Negative); Nitrate Urine Negative (Negative); Protein Urine Negative (Negative); Specific Grav Ur 1.002 (1.001-1.035); Urobilinogen Urine 0.2 mg/dL (<2.0); pH Urine 6.5 (5.0-9.0)
--- NOTE | 2024-03-23 08:57 | PM.OBTRLD ---
OB - Triage/Final Diagnosis Visit Information Date of evaluation: 03/20/24 Reason for evaluation: threatened labor Comments/Additional reasons for admission: I have assessed the risk for this patient, Candace Espitia Pérezdavid, and determined that she would benefit from observation care. Evaluation Laboratory results: Laboratory Tests 03/20/24 11:53 Urine Color Yellow Urine Appearance Clear Urine pH 6.5 Ur Specific [place] 1.002 Urine Protein Negative Urine Glucose (UA) Negative Urine Ketones Negative Ur Blood (Man) Negative Urine Nitrate Negative Urine Bilirubin Negative Urine Urobilinogen 0.2 Leukocyte Esterase Rfl Negative
== END 2024-03-20 12:36 | disposition home or self-care (01) ==
PROVIDERS: Admitting Provider Student in an Organized Health Care Education/Training Program; PCP Nurse Practitioner Family; Visit Provider Student in an Organized Health Care Education/Training Program
DX: O47.02 False labor before 37 completed weeks of gestation, second trimester (principal); Z3A.26 26 weeks gestation of pregnancy
CPT/HCPCS: 81003; G0378; G0379

== ENCOUNTER 2024-04-02 13:56 | Observation (INO) | payer OTHER, SELFPAY ==
--- NOTE | 2024-04-02 13:56 | OBADM ---
This patient, Candace Fletcher, admitted to the OB room OB Post 116 for observation. Patient/family oriented to hospital policies and general routines including ID bracelet, bed and alarms, visiting hours, pain management, procedures, bathroom and other care routines, personal items, smoking policy, room service/diet, and visiting hours. Patient/Family are encouraged to report perceived risks to care and to ask questions if they do not understand what they are told or what they should do.
[2024-04-02 14:22] VITALS: BP 103/54; PULSE 73
[2024-04-02 14:30] VITALS: BP 100/49; PULSE 70
[2024-04-02 14:45] VITALS: BP 101/58; PULSE 80
[2024-04-02 14:51] VITALS: BMI 28.0
[2024-04-02 14:55] LABS: Add Urine Microscopic? YES; Appearance Urine Clear (Clear); Bacteria Urine None Seen /hpf; Bilirubin Urine Negative (Negative); Blood Urine Negative (Negative); Color Urine Yellow (Yellow); Glucose Urine UA Negative (Negative); Ketones Urine Negative (Negative); Leukocyte Esterase Ur Trace LEU/UL (Negative); Nitrate Urine Negative (Negative); Non Pathogenic Casts 0-2; Protein Urine Negative (Negative); RBC Urine 0-2 /hpf (0-2); Specific Grav Ur 1.014 (1.001-1.035); Squamous Epithelial Cell Urine Occasional /hpf (Few); Urobilinogen Urine 0.2 mg/dL (<2.0); WBC Urine 0-5 /hpf (0-3)
[2024-04-02 15:00] VITALS: BP 108/66; PULSE 77
[2024-04-02 15:15] VITALS: BP 99/54; PULSE 72
--- NOTE | 2024-04-02 16:40 | PC.NURSE ---
Called Dr. Betancourt with pt admission. Pt complaining of spotting and contractions. No current spotting. Pt states that she felt some leaking. ROM plus negative. Reactive tracing. Occasional contractions noted. UA results given. October D/C home. Return to office if cramping continues.
--- NOTE | 2024-04-06 07:43 | PM.OBTRLD ---
OB - Triage/Final Diagnosis Visit Information Date of evaluation: 04/02/24 Reason for evaluation: threatened labor Comments/Additional reasons for admission: I have assessed the risk for this patient, Candace Espitia Pérezdavid, and determined that she would benefit from observation care. Evaluation Laboratory results: Laboratory Tests 04/02/24 14:28 Urine Color Yellow Urine Appearance Clear Urine pH 7.0 Ur Specific [place] 1.014 Urine Protein Negative Urine Glucose (UA) Negative Urine Ketones Negative Ur Blood (Man) Negative Urine Nitrate Negative Urine Bilirubin Negative Urine Urobilinogen 0.2 Ur Leukocyte Esterase Trace H Urine RBC 0-2 Urine WBC 0-5 Ur Squamous Epith Cells Occasional Urine Bacteria None seen Urine Casts 0-2
== END 2024-04-02 17:00 ==
PROVIDERS: Admitting Provider Student in an Organized Health Care Education/Training Program; PCP Nurse Practitioner Family; Visit Provider Student in an Organized Health Care Education/Training Program
DX: O47.02 False labor before 37 completed weeks of gestation, second trimester (principal); Z3A.27 27 weeks gestation of pregnancy
CPT/HCPCS: 81001; 87086; G0378; G0379

== ENCOUNTER 2024-04-03 12:06 | Observation (INO) | payer OTHER, SELFPAY ==
[2024-04-03] VITALS (24 sets, daily range): BP systolic 104–109; BP diastolic 47–60; PULSE 60–131; RESP 16; TEMP 36.9; O2SAT 81–100; BMI 28.0
--- NOTE | ~2024-04-03 | US_ITS ---
EXAMINATION: US OB limited DATE: 04/03/2024 15:15 INDICATION: Spotting. Estimated gestational age of 28 weeks and 0 days. TECHNIQUE: Real-time ultrasound of the pelvis was performed. COMPARISON: Ultrasound 02/12/2024 FINDINGS: There is a single fetus in vertex presentation. The placenta is posterior. The cervical length is 4. 6 cm on transabdominal images, which is normal. heart rate is 128 beats per minute (bpm). The a mniotic fluid volume is subjectively normal. The deepest vertical pocket is 5.4 cm. IMPRESSION: 1. Single living fetus in vertex presentation. Reviewed, dictated and finalized at location A.
--- NOTE | 2024-04-03 13:01 | OBADM ---
This patient, Candace Fletcher, admitted to the OB room 116 for observation. Patient/family oriented to hospital policies and general routines including ID bracelet, bed and alarms, visiting hours, pain management, procedures, bathroom and other care routines, personal items, smoking policy, room service/diet, and visiting hours. Patient/Family are encouraged to report perceived risks to care and to ask questions if they do not understand what they are told or what they should do.
[2024-04-03] MEDS: TERBUTALINE SULFATE 1 MG/ML VIAL 0.25 MG SUB-Q (13:36)
[2024-04-03 14:20] LABS: Add Urine Microscopic? YES; Appearance Urine Clear (Clear); Bacteria Urine None Seen /hpf; Bilirubin Urine Negative (Negative); Blood Urine Negative (Negative); Color Urine Yellow (Yellow); Glucose Urine UA Negative (Negative); Ketones Urine Trace mg/dL (Negative); Leukocyte Esterase Ur Trace LEU/UL (Negative); Need Manual Microscopic Reviewed; Nitrate Urine Negative (Negative); Non Pathogenic Casts 0-2; Protein Urine Negative (Negative); RBC Urine 0-2 /hpf (0-2); Specific Grav Ur 1.002 (1.001-1.035); Squamous Epithelial Cell Urine None Seen /hpf (Few); Urobilinogen Urine 0.2 mg/dL (<2.0); WBC Urine 0-5 /hpf (0-3)
--- NOTE | 2024-04-03 14:25 | PM.OBTRLD ---
OB - Triage/Final Diagnosis Visit Information Comments/Additional reasons for admission: I have assessed the risk for this patient, Candace Fletcher, and determined that she would benefit from observation care. Evaluation Vital signs: Vital Signs - 24 hr 04/03/24 12:33 04/03/24 12:38 04/03/24 12:43 Pulse Rate Blood Pressure Pulse Oximetry 96 95 95 04/03/24 12:48 04/03/24 12:53 04/03/24 12:58 Pulse Rate Blood Pressure Pulse Oximetry 95 97 97 04/03/24 13:03 04/03/24 13:08 04/03/24 13:13 Pulse Rate Blood Pressure Pulse Oximetry 97 100 100 04/03/24 13:18 04/03/24 13:21 04/03/24 13:26 Pulse Rate Blood Pressure Pulse Oximetry 98 100 97 04/03/24 13:35 04/03/24 13:37 04/03/24 13:37 Pulse Rate 77 Blood Pressure 109/54 L Pulse Oximetry 100 96 97 04/03/24 13:42 04/03/24 13:45 04/03/24 13:46 Pulse Rate 63 Blood Pressure 104/47 L Pulse Oximetry 99 81 L 04/03/24 13:46 04/03/24 13:47 04/03/24 13:52 Pulse Rate Blood Pressure Pulse Oximetry 83 L 99 100 04/03/24 13:55 04/03/24 14:00 04/03/24 14:05 Pulse Rate 72 Blood Pressure 106/60 Pulse Oximetry 99 99 100 04/03/24 12:39 Pulse Rate Blood Pressure Pulse Oximetry 95 Final Diagnosis (1) contractions: Code(s): O47.00 - False labor before 37 completed weeks of gestation, unspecified trimester Status: Acute
[2024-04-03 14:29] LABS: Fetal Fibronectin Negative
[2024-04-06 19:49] LABS: Bacterial Vaginosis NEGATIVE (NEGATIVE)
== END 2024-04-03 16:07 | disposition home or self-care (01) ==
PROVIDERS: Admitting Provider Obstetrics & Gynecology; PCP Nurse Practitioner Family; Visit Provider Obstetrics & Gynecology
DX: O47.03 False labor before 37 completed weeks of gestation, third trimester (principal); Z3A.28 28 weeks gestation of pregnancy
CPT/HCPCS: 76815; 81001; 81513; 82731; 87102; 96372; G0378; G0379; J3105

== ENCOUNTER 2024-04-09 12:08 | Outpatient (RCR) | payer OTHER, SELFPAY ==
[2024-04-09 13:34] LABS: Basophils Percent Auto 0.2 % (0.2-1.2); Eosinophils Absolute Auto 0.3 K/mm3 (0-0.3); Eosinophils Percent Auto 2.6 % (0-4.4); Hematocrit 35.5 % (37.0-47.0); Hemoglobin 11.8 g/dL (12.0-15.0); Immature Granulocyte Absolute 0.05 K/mm3 (0.00-0.031); Immature Granulocyte Percent A 0.4 % (0-0.5); Lymphocytes Absolute Auto 1.53 K/mm3 (0.9-3.2); Lymphocytes Percent Auto 13.5 % (18.3-44.2); Mean Corpuscular HGB Conc 33.2 g/dl (32-36); Mean Corpuscular Hemoglobin 27.9 pg (26-34); Mean Corpuscular Volume 83.9 fl (80-100); Mean Platelet Volume 9.6 fl (7.4-10.4); Monocytes Absolute Auto 0.8 K/mm3 (0.1-0.6); Monocytes Percent Auto 6.6 % (2.6-8.5); Neutrophils Absolute Auto 8.7 K/mm3 (1.3-6.7); Neutrophils Percent Auto 76.7 % (45.5-73.1); Platelet Count Result 238 k/mm3 (150-375); Red Blood Count 4.23 M/mm3 (4.2-5.4); Red Cell Distribution Width 14.2 % (11.5-14.5); White Blood Count 11.4 K/mm3 (4.5-10.0)
[2024-04-09 13:46] LABS: Glucose 1 Hour PP 50gm Dose 110 mg/dL
[2024-04-09 14:31] LABS: HIV 1/2 Ab P24 Ag Result Negative (Negative)
[2024-04-09] MEDS: RHO(D) IMMUNE GLOBULIN 300 MCG/2 ML SYRINGE IM (16:53)
[2024-04-09 17:55] LABS: Rapid Plasma Reagin Non-Reactive (NonReactive)
[2024-04-15 08:43] LABS: Beef IgE (F27) <10.0; Lamb (F88) IgE <0.10; Lamb Class 0; Pork (F26) IgE <0.10; Pork Class 0
[2024-04-15 08:44] LABS: Galactose Alpha 1,3 IgE Negative
== END 2024-07-08 23:59 | disposition home or self-care (01) ==
LOC: ANHLAB 12:08
PROVIDERS: PCP Nurse Practitioner Family; Referring Provider Nurse Practitioner Family; Visit Provider Obstetrics & Gynecology
DX: Z11.4 Encounter for screening for human immunodeficiency virus [HIV] (principal); Z11.3 Encounter for screening for infections with a predominantly sexual mode of transmission; Z29.13 Encounter for prophylactic Rho(D) immune globulin; O36.0190 Maternal care for anti-D [Rh] antibodies, unspecified trimester, not applicable or unspecified; Z3A.00 Weeks of gestation of pregnancy not specified
CPT/HCPCS: 36415; 82947; 85025; 85461; 86008; 86592; 86703; 86850; 86900; 86901; 90384; 96372; G0432; J2790

== ENCOUNTER 2024-04-14 14:11 | Observation (INO) | payer OTHER, SELFPAY ==
--- NOTE | ~2024-04-14 | US_ITS ---
LIMITED OBSTETRIC ULTRASOUND Ordering provider: Miguel Angel Betancourt MD History: . cervical length . Comparison: None. FINDINGS: MATERNAL CERVIX: Measures 4 cm which is normal (normal is equal to or greater than 3.0 cm). PRESENTATION: Vertex. Longitudinal lie. PLACENTAL LOCATION: Posterior. No previa. HEART RATE: 123 bpm (normal is between 110 to 160 bpm). AMNIOTIC FLUID INDEX: 14.5 cm. The 5th percentile is 9.2 cm and the 95th percentile is 23 cm. Larges t vertical pocket is 4.4 cm. normal (NAI between 5-25 cm in from 20-35 weeks gestation is considered normal). OTHER: Maternal ovaries not visualized. IMPRESSION: Single live fetus of Vertex presentation. Reviewed, dictated and finalized at location A.
[2024-04-14 15:03] VITALS: BMI 29.4
[2024-04-14 15:14] LABS: Add Urine Microscopic? YES; Appearance Urine Cloudy (Clear); Bacteria Urine 1+ /hpf; Bilirubin Urine Negative (Negative); Blood Urine Negative (Negative); Color Urine Yellow (Yellow); Glucose Urine UA Negative (Negative); Ketones Urine Negative (Negative); Leukocyte Esterase Ur 1+ LEU/UL (Negative); Need Manual Microscopic Reviewed; Nitrate Urine Negative (Negative); Non Pathogenic Casts 0-2; Protein Urine Negative (Negative); RBC Urine 0-2 /hpf (0-2); Specific Grav Ur 1.013 (1.001-1.035); Squamous Epithelial Cell Urine Few /hpf (Few); Urobilinogen Urine 0.2 mg/dL (<2.0); pH Urine 6.5 (5.0-9.0)
[2024-04-14 15:19] VITALS: BP 108/69; PULSE 82
[2024-04-14 15:30] VITALS: BP 110/61; PULSE 82
--- NOTE | 2024-04-14 15:55 | P.PNOB_ITS ---
OB - Triage/Final Diagnosis Visit Information Reason for evaluation: threatened labor Comments/Additional reasons for admission: I have assessed the risk for this patient, Candace Fletcher, and determined that she would benefit from observation care. Evaluation Laboratory results: Laboratory Tests 04/14/24 14:28 Urine Color Yellow Urine Appearance Cloudy H Urine pH 6.5 Ur Specific [place] 1.013 Urine Protein Negative Urine Glucose (UA) Negative Urine Ketones Negative Ur Blood (Man) Negative Urine Nitrate Negative Urine Bilirubin Negative Urine Urobilinogen 0.2 Add Ur Microanalysis Reviewed Leukocyte Esterase Rfl 1+ H Urine RBC 0-2 Urine WBC 11-20 H Ur Squamous Epith Cells Few Urine Bacteria 1+ H Urine Casts 0-2 Vital signs: Vital Signs - 24 hr 04/14/24 15:19 04/14/24 15:30 Pulse Rate 82 82 Blood Pressure 108/69 110/61
== END 2024-04-14 16:04 | disposition home or self-care (01) ==
PROVIDERS: Admitting Provider Student in an Organized Health Care Education/Training Program; PCP Nurse Practitioner Family; Visit Provider Student in an Organized Health Care Education/Training Program
DX: O47.03 False labor before 37 completed weeks of gestation, third trimester (principal); Z3A.29 29 weeks gestation of pregnancy
CPT/HCPCS: 76815; 81001; 87086; G0378; G0379

== ENCOUNTER 2024-04-29 19:13 | Emergency (ER) | payer OTHER, SELFPAY ==
--- NOTE | ~2024-04-29 | XR_ITS ---
CHEST RADIOGRAPH CLINICAL HISTORY: cp. 31 WEEKS AND SHIELDED . COMPARISON: 05/09/2021 TECHNIQUE: Single portable view of the chest. FINDINGS The cardiomediastinal silhouette is unremarkable. The lungs are clear. Visualized osseous structures and soft tissues are unremarkable. IMPRESSION: No focal infiltrate or effusion. Reviewed, dictated and finalized at location A. LEVEL PRACTITIONER
--- NOTE | 2024-04-29 19:14 | ECG_ITS ---
Test Date: 2024-04-29 19:26:00 Measurements Intervals [place] Rate: 72 P: 24 AL: 136 QRS: 48 QRSD: 83 T: 19 QT: 383 QTc: 421 Interpretive Statements SINUS RHYTHM BORDERLINE ST-T WAVE ABNORMALITY- ANT/INF LEADS BASELINE ARTIFACT- I, II, III, AVR, AVL, AVF, V1-V6 BORDERLINE ECG No previous ECG available for comparison Electronically Signed On 04-30-2024 05:21:45 [employer] ATTEND[employer] by Buster Spears D.O.
[2024-04-29 19:18] VITALS: BP 103/59; PULSE 74; RESP 16; TEMP 36.6; O2SAT 100
[2024-04-29 19:41] VITALS: O2SAT 99
[2024-04-29 19:43] VITALS: BP 92/56; PULSE 70; RESP 20; O2SAT 99
[2024-04-29 19:57] LABS: Basophils Percent Auto 0.3 % (0.2-1.2); Eosinophils Absolute Auto 0.3 K/mm3 (0-0.3); Eosinophils Percent Auto 3.1 % (0-4.4); Hematocrit 33.1 % (37.0-47.0); Hemoglobin 11.1 g/dL (12.0-15.0); Immature Granulocyte Absolute 0.06 K/mm3 (0.00-0.031); Immature Granulocyte Percent A 0.6 % (0-0.5); Lymphocytes Absolute Auto 1.99 K/mm3 (0.9-3.2); Lymphocytes Percent Auto 19.2 % (18.3-44.2); Mean Corpuscular HGB Conc 33.5 g/dl (32-36); Mean Corpuscular Hemoglobin 26.9 pg (26-34); Mean Corpuscular Volume 80.1 fl (80-100); Mean Platelet Volume 9.6 fl (7.4-10.4); Monocytes Absolute Auto 0.9 K/mm3 (0.1-0.6); Neutrophils Percent Auto 67.8 % (45.5-73.1); Platelet Count Result 264 k/mm3 (150-375); Red Blood Count 4.13 M/mm3 (4.2-5.4); Red Cell Distribution Width 14.2 % (11.5-14.5); White Blood Count 10.4 K/mm3 (4.5-10.0)
[2024-04-29 20:08] LABS: Alanine Aminotransferase 19 U/L (6-35); Albumin Level 3.4 g/dL (3.5-5.1); Alkaline Phosphatase 125 U/L (38-126); Anion Gap 6 mmol/L (4-12); Aspartate Amino Transferase 22 U/L (14-36); Bilirubin,Total 0.3 mg/dL (0.2-1.3); Blood Urea Nitrogen 8 mg/dL (7-17); Calcium 8.8 mg/dL (8.4-10.2); Carbon Dioxide 21 mmol/L (22-30); Chloride 106 mmol/L (98-107); Estimated CRCL calculation 165 ml/min; Estimated Glomerular Filt Rate > 60; Glucose 102 mg/dL (65-110); Lipase 239 U/L (23-300); Potassium 3.7 mmol/L (3.4-5.0); Sodium 133 mmol/L (137-145)
[2024-04-29 20:09] LABS: INR 1.1; Partial Thromboplastin Time 28.7 Seconds (22.3-36.8); Prothrombin Time 14.2 Seconds (11.1-14.7)
[2024-04-29] MEDS: LACTATED RINGERS 500 ML 999 ML IV CONT (20:09)
[2024-04-29 20:13] VITALS: BP 92/51; PULSE 69; RESP 21; TEMP 36.8; O2SAT 98
[2024-04-29 20:20] LABS: Troponin I < 0.012 ng/mL (0.000-0.034)
[2024-04-29 20:46] VITALS: BP 98/55; PULSE 80; RESP 17; O2SAT 100
[2024-04-29 20:57] VITALS: BP 111/57; PULSE 68; RESP 20; TEMP 36.9; O2SAT 100
--- NOTE | 2024-04-29 21:04 | ED_ITS ---
HPI - Chest Pain General Chief Complaint: Chest Pain Stated Complaint: CP, paliptations, 31 wks preg Time Seen by Provider: 04/29/24 19:26 Source: patient Mode of arrival: ambulatory Limitations: no limitations History of Present Illness HPI narrative: 28-year-old 3 para 2 about 31 weeks of gestation here with the complaints of not feeling well, short of breath, intermittent palpitation since the last few days. Patient states since this morning she has been feeling weak. She denies any fever or chills. Denies any cough. Patient states that she was recently started on fluoxetine. MD complaint: chest pain Timing of current episode: episodic Pain radiation: none Severity: moderate Quality: heaviness Relieving factors: nothing Exacerbating factors: nothing Treatment prior to arrival: none Risk Factors Coronary artery disease risk factors: none Thoracic aortic dissection risk factors: none Related Data Home Medications Medication Instructions Recorded Confirmed vits no.126-ferrous fum 1 tablet PO DAILY 11/22/23 04/20/24 28 mg iron-folic acid 800 mcg tablet (Classic ) ondansetron 4 mg disintegrating 4 mg PO Q6H 01/21/24 04/20/24 tablet magnesium glycinate 100 mg (as 100 mg PO DAILY 04/03/24 04/20/24 glycinate) tablet pyridoxine (vitamin B6) 5 mg 6 mg PO DAILY 04/03/24 04/20/24 capsule Allergies Allergy/AdvReac Type Severity Reaction Status Date / Time metronidazole Allergy Mild Blurry Verified 04/29/24 19:14 Vision Review of Systems Review of Systems: All systems reviewed & are unremarkable except as noted in HPI and below Constitutional: Constitutional: Reports no additional constitutional complaints Eyes: Eyes: Reports no additional eye complaints ENT: Reports system reviewed and no additional complaints, except as documented Cardiovascular: Cardiovascular: Reports as per HPI Respiratory: Respiratory: Reports no additional respiratory complaints Gastrointestinal: Gastrointestinal: Reports no additional gastrointestinal complaints Musculoskeletal: Musculoskeletal: Reports no additional musculoskeletal complaints Neurologic: Reports system reviewed and no additional complaints, except as documented Endocrine: Endocrine: Reports no additional endocrine complaints [facility] Past Medical History Medical History Anxiety Asthma Bipolar disorder with depression Dizziness Encounter for IUD removal Fibromyalgia Gastric ulcer History of dental problems 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 Remove/insert IUD Laparoscopic in 2020 per patient questionnaire Right knee sprain Suppression of menses Wears glasses Weight gain Surgical History Surgical History History of colon surgery colonoscopy in 2019 Family History Family History Mother Diabetes mellitus Thyroid activity decreased Hypertension Father Hypertension Sibling Lupus Diabetes mellitus Other Arthritis Asthma Carcinoma of colon Depression HLD (hyperlipidemia) Social History Social History Smoking status: Former smoker Tobacco type: e-cigarettes/vaping Second hand tobacco smoke exposure: No Alcohol intake: former Alcohol use details: few times a week will have some wine, not while . Substance use: former Substance use type: marijuana Other substance usage details: CIGERETTES FOR 2 YEARS AND MARAJUANA FOR A FEW MONTHS Do You Feel Safe in your Home?: Yes Lack of Transportation: No Lack of Food: Never True Current Housing: I Have Housing Concerned About Future Housing: No Difficulty Paying Gas/Electric Bills: No Difficulty Paying for Meds: No Currently Unemployed: YES Education: High School Diploma/GED Difficulty w/ Childcare or Family Care: No Living arrangements: with family Additional living arrangements comments: boyfriend and child Occupation/Education: other Gender identity (if verbalized by the patient): Female Spiritual care concerns: No Exam Narrative: GENERAL: Well-appearing, well-nourished, and in no acute distress. HEAD: Normocephalic, atraumatic. EYES: PERRLA and EOMI. ENT: Nares clear, no rhinorrhea . NECK: Supple. CHEST: Clear to auscultation. No respiratory distress. HEART: Regular rate and rhythm. No murmur heard. Normal peripheral pulses. ABDOMEN: gravid abdomen EXTREMITIES: Normal range of motion. No edema. SKIN: Warm, dry, no rash. NEURO: No focal deficits. Alert and oriented x3. PSYCH: Normal mood and affect. Course Course Emergency Course: Patient was notified about her lab work, EKG chest x-ray findings. Most of his symptoms appear to be like anxiety. I discussed with the Dr. Betancourt patient can be discharged to L&D for NST. Vital Signs Vital signs: Vital Signs Temperature 36.6 C 04/29/24 19:18 Pulse Rate 74 04/29/24 19:18 Respiratory Rate 16 04/29/24 19:18 Blood Pressure 103/59 L 04/29/24 19:18 Pulse Oximetry 100 04/29/24 19:18 Temperature 36.9 C 04/29/24 20:57 Pulse Rate 68 04/29/24 20:57 Respiratory Rate 20 04/29/24 20:57 Blood Pressure 111/57 L 04/29/24 20:57 Pulse Oximetry 100 04/29/24 20:57 Oxygen Delivery Room Air 04/29/24 19:41 MDM - Chest Pain MDM Narrative Medical decision making narrative: 28-year-old Number 31 a complaint of intermittent palpitation, weakness and shortness of breath I did the exam is unremarkable with do EKG and lab work included Differential Diagnosis Differential diagnosis: Likely unstable angina pectoris, atypical chest pain, chest pain and other (Anxiety) Medical Records Data Attestation: I reviewed the patient's medical records. Lab Data Attestation: I reviewed the patient's lab results. 04/29/24 19:32 04/29/24 19:32 Labs: Lab Results 04/29/24 04/29/24 Range/Units 19:32 20:26 WBC 10.4 H (4.5-10.0) K/mm3 RBC 4.13 L (4.2-5.4) M/mm3 Hgb 11.1 L (12.0-15.0) g/dL Hct 33.1 L (37.0-47.0) % MCV 80.1 (80-100) fl MCH 26.9 (26-34) pg MCHC 33.5 (32-36) g/dl RDW 14.2 (11.5-14.5) % Plt Count 264 (150-375) k/mm3 MPV 9.6 (7.4-10.4) fl Immature Gran % (Auto) 0.6 H (0-0.5) % Neut % (Auto) 67.8 (45.5-73.1) % Lymph % (Auto) 19.2 (18.3-44.2) % [place] % (Auto) 9.0 H (2.6-8.5) % Eos % (Auto) 3.1 (0-4.4) % Baso % (Auto) 0.3 (0.2-1.2) % Lymph # (Auto) 1.99 (0.9-3.2) K/mm3 [place] # (Auto) 0.9 H (0.1-0.6) K/mm3 Eos # (Auto) 0.3 (0-0.3) K/mm3 Baso # (Auto) 0.0 (0.0-0.1) K/mm3 Abs Immat Gran (auto) 0.06 H (0.00-0.031) K/mm3 Absolute Neuts (auto) 7.0 H (1.3-6.7) K/mm3 Absolute Nucleated RBC 0.000 (0.0-0.012) K/mm3 Nucleated RBC % 0.0 (0.0-0.2) % PT 14.2 (11.1-14.7) Seconds INR 1.1 APTT 28.7 (22.3-36.8) Seconds Sodium 133 L (137-145) mmol/L Potassium 3.7 (3.4-5.0) mmol/L Chloride 106 (98-107) mmol/L Carbon Dioxide 21 L (22-30) mmol/L Anion Gap 6 (4-12) mmol/L BUN 8 (7-17) mg/dL Creatinine 0.40 L (0.7-1.0) mg/dL Estim Creat Clear Calc 165 ml/min Estimated GFR > 60 (59 - ) Glucose 102 (65-110) mg/dL Calcium 8.8 (8.4-10.2) mg/dL Total Bilirubin 0.3 (0.2-1.3) mg/dL AST 22 (14-36) U/L ALT 19 (6-35) U/L Alkaline Phosphatase 125 (38-126) U/L Troponin I < 0.012 (0.000-0.034) ng/mL Total Protein 7.0 (6.3-8.2) g/dL Albumin 3.4 L (3.5-5.1) g/dL Lipase 239 (23-300) U/L Influenza A (RT-PCR) Pending Influenza B (RT-PCR) Pending SARS-CoV-2 RNA (RT-PCR) Pending Imaging Data Radiologist's impression: ITS Impressions Chest X-Ray 04/29/24 20:33 IMPRESSION: No focal infiltrate or effusion. ECG Data EKG #1: ECG completion date: 04/29/24 ECG completion time: 19:26 EKG Interpretation: normal rate (72), sinus rhythm, no ST changes, NL axis and no acute changes Discharge Plan Discharge Clinical Impression: Chest pain, non-cardiac, Anxiety Patient Disposition: Home, Self-Care Condition: Stable Instructions: Chest Pain (ED) Additional Instructions: continue home medications, follow with our doctor , you need to be evaluated in L and D. Prescriptions: No Action Classic 28 mg iron- 800 mcg tablet 1 tablet PO DAILY ondansetron 4 mg tablet,disintegrating 4 mg PO Q6H fluoxetine 10 mg capsule 10 mg PO DAILY Qty: 90 1RF albuterol sulfate [Ventolin HFA] 90 mcg/actuation HFA aerosol inhaler 1 puff inhalation Q4H PRN (Reason: shortness of breath or wheezing) Qty: 8.5 1RF pyridoxine (vitamin B6) 5 mg Capsule 6 mg PO DAILY magnesium glycinate 100 mg Tablet 100 mg PO DAILY Rx Instructions: This is a liquid pt takes Follow-up/Referrals: Kamla Ward APRN [Primary Care Provider] - Time of Disposition: 21:17
[2024-04-29 21:10] LABS: Influenza A QL RT-PCR Negative (Negative); Influenza B QL RT-PCR Negative (Negative); SARS-CoV-2 RNA PCR Negative (Negative)
== END 2024-04-29 21:55 | disposition home or self-care (01) ==
PROVIDERS: Student in an Organized Health Care Education/Training Program; Emergency Provider Family Medicine; PCP Nurse Practitioner Family
DX: O99.343 Other mental disorders complicating pregnancy, third trimester (principal); Z3A.31 31 weeks gestation of pregnancy; Z20.822 Contact with and (suspected) exposure to COVID-19
CPT/HCPCS: 36415; 71045; 80053; 83690; 84484; 85025; 85610; 85730; 87636; 93005; 96360; 99284; J7120

== ENCOUNTER 2024-06-21 11:57 | Observation (INO) | payer OTHER, SELFPAY ==
[2024-06-21 14:13] VITALS: BMI 30.2
--- NOTE | 2024-06-21 14:14 | OBADM ---
This patient, Candace Fletcher, admitted to the OB room Labor/Delivery/Recovery 107 for observation. Patient/family oriented to hospital policies and general routines including ID bracelet, bed and alarms, visiting hours, pain management, procedures, bathroom and other care routines, personal items, smoking policy, room service/diet, and visiting hours. Patient/Family are encouraged to report perceived risks to care and to ask questions if they do not understand what they are told or what they should do.
--- OUTSIDE RECORDS SUMMARY | 2024-06-28 16:59 | XMS_ITS | Clinical Summary ---
Author Organization [facility] Address [address] [place] [address] Phone Care Team Providers Care Business Analyst Ecommerce Name Role Phone Nadia Butcher APRN, EMPLOYEE BENEFITS DIRECTOR Primary Care Provi hansel Social History Tobacco Use Types Packs/Day Years Used Date Smoking Tobacco: Never Assessed Comments Unknown Sex and Gender Information Value Date Recorded Sex Assigned at Not on file Legal Sex Female 1:01 PM CDT Gender Identity Not on file Sexual Orientation Not on file Plan of Treatment Health Maintenance Due Date Last Done Comments Hepatitis C Virus (HCV) Screening 1997 TdaP Immunization 1997 Human Papillomavirus (HPV) Immunization (1 - 3-dose series) 2012 Hepatitis B Immunization (1 of 3 - 19+ 3-dose series) 2016 Pap Smear 2018 Influenza Immunization (#1) 2024 SARS-COV-2 Immunization ( season) 2024 Respiratory Syncytial Virus (RSV) Immunization (Adult) (1 - 1-dose 75+ series) 2072 Meningococcal Immunization (ACWY) Aged Out No longer eligible based on patient's age to complete this topic Pneumococcal Immunization Combined Aged Out No longer eligible based on patient's age to complete this topic Rotavirus Immunization Aged Out No lo nger eligible based on patient's age to complete this topic Insurance MEDICAID [facility] CBO ONLY BLUE CROSS ANTHEM Care Teams Business Analyst Ecommerce Relationship Specialty Start Date End Date Nadia Butcher, EXPERIMENTAL DISPLAY BUILDER, EMPLOYEE BENEFITS DIRECTOR [address] [place] [address] PCP - General Advanced Practice Nurse 09/09/22
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
--- OUTSIDE RECORDS SUMMARY | 2024-06-28 16:59 | XMS_ITS | Encounter Summary ---
Author Organization [facility] Address [address] [place] [address] Phone Care Team Providers Care Manga Artist Name Role Phone Nadia Butcher APRN, CNP Primary Care Provi hansel Reason for Referral * Other (Routine) - Closed Specialty Diagnoses / Procedures Referred By Donna denney Referred To Contact Neurology Diagnoses Brachial neuritis Procedures EMG Telma Burnett APRN, CNP [address] [id number] Phone: tel: fax: Referral ID Status Reason Start Date Expiration Date Visits Re quested Visits Authorized [id number] Closed 10/24/2022 1 1 * Other (Routine) - Closed Specialty Diagnoses / Procedures Referred By Donna denney Referred To Contact Neurology Diagnoses Lumbar radiculopathy Procedures EMG Telma Burnett APRN, CNP [address] [id number] Phone: tel: fax: Referral ID Status Reason Start Date Expiration Date Visits Re quested Visits Authorized [id number] Closed 10/24/2022 1 1 Encounter Details Date Type Department Care Team (Latest Contact Info) Description 10/24/2022 Transcribe Orders [facility] Central Scheduling [address] [facility] [place] [address] Lex, Telma Joyner, HORTICULTURE/FLORICULTURE TEACHER, AUTO BODY ESTIMATOR [address] [place] [address] Lumbar radiculopathy (Primary Dx); Brachial neuritis Social History Tobacco Use Types Packs/Day Years Used Date Smoking Tobacco: Never Assessed Comments Unknown Sex and Gender Information Value Date Recorded Sex Assigned at Not on file Legal Sex Female 1:01 PM CDT Gender Identity Not on file Sexual Orientation Not on file documented as of this encounter Plan of Treatment Not on file documented as of this encounter Procedures Procedure Name Priority Date/Time Associated Diagnosis Comments EMG Routine 12/10/2022 12:00 AM CDT Lumbar radiculopathy documented in this encounter Results * EMG (12/10/2022 1:00 PM CDT) Narrative Jonas Blackwell MD - 12/10/2022 1:00 PM CDT Jonas Blackwell MD ? 12/12/2022 ??4:44 PM Electromyogram Procedure Note Date of Procedure: 12/10/2022 Pre-operative Diagnosis: bilateral upper and lower extremity numbness, tingling and pain. Post-operative Diagnosis: Indications: Diagnostic Procedure Details Motor Nerve Conduction Studies: The bilateral median motor nerve shows normal distal motor latency, normal motor amplitude and normal conduction velocity. The bilateral peroneal motor nerve shows normal distal motor latency, normal motor amplitude and normal conduction velocity. The bilateral tibial motor nerve shows normal distal motor latency, normal motor amplitude and normal conduction velocity. The bilateral ulnar motor nerve shows normal distal motor latency, normal motor amplitude and normal conduction velocity. Sensory Nerve Conduction Studies: The bilateral median sensory nerve shows normal sensory nerve peak latency and normal sensory amplitude. The bilateral ulnar sensory nerve shows normal sensory nerve peak latency and normal sensory amplitude. The bilateral radial sensory nerve shows normal sensory nerve peak latency and normal sensory amplitude. The bilateral superficial peroneal sensory nerve shows normal sensory nerve peak latency and normal sensory amplitude. The bilateral sural sensory nerve shows normal sensory nerve peak latency and normal sensory amplitude. Median radial comparisons were normal, bilaterally. Median ulnar comparisons were normal, bilaterally. F waves: F wave latencies for the bilateral median nerve were normal. F wave latencies for the bilateral peroneal nerve were normal. F wave latencies for the bilateral tibial nerve were normal. F wave latencies for the bilateral ulnar nerve were normal. EMG: Needle EMG of the right APB, FDI, biceps, triceps, deltoid, gastrocnemius, anterior tibialis and vastus medialis were normal. Summary This is a normal study without evidence of compression neuropathy of bilateral upper and lower extremities. ??There was no evidence of radiculopathy of right upper and lower extremities. ??Clinical correlation is recommended. ?? Telma Burnett APRN, [facility] ORDERAB LES V2 Final Result * EMG (12/10/2022 12:00 AM CDT) 12/10/2022 Telma Burnett APRN, [facility] NEUR[facility] ORDERAB LES V2 Final Result SCAN documented in this encounter Visit Diagnoses Diagnosis Lumbar radiculopathy- Primary Thoracic or lumbosacral neuritis or radiculitis, unspecified Brachial neuritis Brachial neuritis or radiculitis nos Brachial neuritis Brachial neuritis or radiculitis nos documented in this encounter Care Teams Manga Artist Relationship Specialty Start Date End Date Nadia Butcher APRN, HERACLIO [address] [place] [address] PCP - General Advanced Practice Nurse 09/09/22 documented as of this encounter
--- OUTSIDE RECORDS SUMMARY | 2024-06-28 16:59 | XMS_ITS | Encounter Summary ---
Author Organization [employer] Care Team Providers Care Load Manager Name Role Phone Nadia Butcher APRN, INFORMATION AND REFERRAL DIRECTOR Primary Care Provi hansel Encounter Details Date Type Department Care Team (Latest Contact Info) Description 12/10/2022 Travel Social History Tobacco Use Types Packs/Day Years [...] suspected to have Coronavirus/COVID-19? No / Unsure 12/10/2022 8:16 AM CDT documented as of this encounter Plan of Treatment Not on file documented as of this encounter Visit Diagnoses Not on filedocumented in this encounter Care Teams Load Manager Relationship Specialty Start Date End Date Nadia Butcher, [employer], INFORMATION AND REFERRAL DIRECTOR [address] [place] [address] PCP - General Advanced Practice Nurse 09/09/22 documented as of this encounter
--- OUTSIDE RECORDS SUMMARY | 2024-06-28 16:59 | XMS_ITS | Encounter Summary ---
Author Organization [facility] Address [address] [place] [address] Phone Care Team Providers Care Therapist Occupational Name Role Phone Nadia Butcher APRN, MANUFACTURING LAB TECHNICIAN Primary Care Provi hansel Reason for Visit * Reason Onset Date Comments Social Concerns 10/15/2023 Encounter Details Date Type Department Care Team (Late st Contact Info) Description 10/15/2023 Patient Outreach [facility] [address] [place] [address] Navigator, [place] Social Concerns Social History Tobacco Use Types Packs/Day Years Used Date Smoking Tobacco: Never Assessed Comments Unknown Sex and Gender Information Value Date Recorded Sex Assigned at Not on file Legal Sex Female 1:01 PM CDT Gender Identity Not on file Sexual Orientation Not on file documented as of this encounter Progress Notes * Chela Simental - 10/16/2023 3:42 PM CDT Contacted patient to assess social determinants of health needs. Unable to reach patient, left voice mail. This is the third & final attempt to reach patient. This is final attempt to reach patient. * Chela Simental - 10/15/2023 3:27 PM CDT Contacted patient to assess social determinants of health needs. Reached patient. Patient has SDOH needs. Social Determinants of Health with Concerns Tobacco Use: Not on file Alcohol Use: Not on file Financial Resource Needs: Not on file Food Insecurity Needs: Not on file Transportation Needs: Not on file Physical Activity: Not on file Stress: Not on file Social Integration: Not on file Intimate Partner Violence: Not on file Depression: Not on file Housing Stability: Not on file Utilities: Not on file Patient asked for a callback tomorrow 10/16/2023 at 3:30pm * Chela Simental - 10/15/2023 1:13 PM CDT Contacted patient to assess social determinants of health needs. Reached patient. Patient has SDOH needs. Social Determinants of Health with Concerns Tobacco Use: Not on file Alcohol Use: Not on file Financial Resource Needs: Not on file Food Insecurity Needs: Not on file Transportation Needs: Not on file Physical Activity: Not on file Stress: Not on file Social Integration: Not on file Intimate Partner Violence: Not on file Depression: Not on file Housing Stability: Not on file Utilities: Not on file Will attempt to reach patient at later date. Patient asked for a call back tomorrow 10/15 at 3:30pm. documented in this encounter Plan of Treatment Not on file documented as of this encounter Visit Diagnoses Not on filedocumented in this encounter Care Teams Therapist Occupational Relationship Specialty Start Date End Date Nadia Butcher, BEHAVIORAL HEALTH WORKER, MANUFACTURING LAB TECHNICIAN [address] [place] [address] PCP - General Advanced Practice Nurse 09/09/22 documented as of this encounter
--- OUTSIDE RECORDS SUMMARY | 2024-06-28 16:59 | XMS_ITS | Patient Health Record ---
Author Organization [facility] Address [address] [facility] [place] [address] [place] [address] Care Team Providers Care Box Shook Patcher Name Role Phone Malini Gallardonati Primary Care Provider Reason For Referral No Information Medications Medication SIG (Take, Route, Frequency, Duration) Notes Start Date End Date Status Probiotic - as directed Orally Active IBgard 90 MG as directed Orally Active Montelukast Sodium 10 MG 1 tablet Orally Once a day for 90 days 04/19/2020 Active Zoloft 50 MG 1 tablet Orally Once a day for 30 days Active Social History Tobacco Use: Social History Observation Description Date Details (start date - stop date) Current Smoker NA - NA Tobacco Use Question Answer Notes Are you a current smoker How often do you smoke cigarettes? every day How many cigarettes a day do you smoke? 31 or mo re How soon after you wake up d o you smoke your first cigarette? 31-60 minutes Are you interested in quitting? Thinking about q uitting Tobacco use Question Answer Notes Are you an other tobacco user? No Problems Problem Type SNOMED Code ICD Code Onset Dates Problem Status W/U Status Risk Notes Problem 299917547 Mild intermitten t asthma without complication (J45.20) Active confirmed Problem 35417072 Recurrent major depressive disorder, in full remission (F33.42) Active confirmed Problem 56433452 Irritable bowel syndrome with both constipation and diarrhea (K58.2) Active confirmed Plan Of Treatment No Information Insurance Providers Payer Name Payer Address Payer Phone Subscriber Number Group Number Insured Name Patient Relationship to Insured Coverage Start Date Coverage End Date [facility] [address] [place] [address] [id number] Candace Fletcher Self - patient is the insured [place] [address] [place] [address] [id number] Candace Fletcher Self - patient is the insured Medical (General) History Medical History History ICD Code depression Surgical History Surgery Date(Month/Year) widom teeth 2018 Hospitalization History Reason Date(Month/Year) child 2019
--- OUTSIDE RECORDS SUMMARY | 2024-06-28 16:59 | XMS_ITS | Encounter Summary ---
Author Organization [employer] Care Team Providers Care Laser Systems Engineer Name Role Phone Nadia Butcher APRN, PET WALKER Primary Care Provi hansel Encounter Details Date Type Department Care Team (Latest Contact Info) Description 09/09/2022 Travel Social History Tobacco Use Types Packs/Day [...] suspected to have Coronavirus/COVID-19? No / Unsure 09/09/2022 1:02 PM CDT documented as of this encounter Plan of Treatment Not on file documented as of this encounter Visit Diagnoses Not on filedocumented in this encounter Care Teams Laser Systems Engineer Relationship Specialty Start Date End Date Nadia Butcher, [employer], PET WALKER [address] [place] [address] PCP - General Advanced Practice Nurse 09/09/22 documented as of this encounter
--- OUTSIDE RECORDS SUMMARY | 2024-06-28 16:59 | XMS_ITS | Encounter Summary ---
Author Organization [facility] Address [address] [place] [address] Phone Care Team Providers Care Parts Counter Representative Name Role Phone Nadia Butcher APRN, HERACLIO Primary Care Provi hansel Reason for Referral * Radiology Services (Routine) - Closed Specialty Diagnoses / Procedures Referred By Contac t Referred To Contact Radiology Diagnoses Cervicalgia Other chronic pain Procedures XR CERVICAL SPINE LIMITED 2 OR 3 VIEWS (3V OR LESS) Nadia Butcher APRN, CENTER RECEPTIONIST [address] [place] [address] Phone: tel: fax: Referral ID Status Reason Start Date Expiration Date Visits Re quested Visits Authorized [id number] Closed 09/19/2022 1 1 Reason for Visit * Radiology Services (Routine) - Closed Specialty Diagnoses / Procedures Referred By Contac t Referred To Contact Radiology Diagnoses Cervicalgia Other chronic pain Procedures XR CERVICAL SPINE LIMITED 2 OR 3 VIEWS (3V OR LESS) Nadia Butcher APRN, CENTER RECEPTIONIST [address] [place] [address] Phone: tel: fax: Referral ID Status Reason Start Date Expiration Date Visits Re quested Visits Authorized [id number] Closed 09/19/2022 1 1 Encounter Details Date Type Department Care Team (Latest Contact Info) Description 09/19/2022 11:00 AM CDT - 09/19/2022 11:59 PM CDT Hospital Encounter [facility] Diagnostic Radiology [address] [place] [address] Nadia Butcher, WIRE WEAVER CLOTH, CENTER RECEPTIONIST [address] [place] [address] Discharge Disposition: Discharged to home or Selfcare [...] suspected to have Coronavirus/COVID-19? No / Unsure 09/19/2022 10:59 AM CDT documented as of this encounter Plan of Treatment Not on file documented as of this encounter Procedures Procedure Name Priority Date/Time Associated Diagnosis Comments XR CERVICAL SPINE LIMITED 2 OR 3 VIEWS (3V OR LESS) Routine 09/19/2022 11:19 AM CDT Cervicalgia Other chronic pain documented in this encounter Results * XR CERVICAL SPINE LIMITED 2 OR 3 VIEWS (3V OR LESS) (09/19/2022 11:19 AM CDT) Anatomical Region Laterality Modality Spine, C-spine N/A Digital Radiogra phy 09/19/2022 4:37 PM CDT Impressions 09/19/2022 4:40 PM CDT IMPRESSION: ?? 1. ?? Straightening of the cervical lordosis in association with degenerative disc disease of the cervical spine. 2. ?? If clinically warranted, MRI of the cervical spine without contrast can be performed for further evaluation. Narrative 09/19/2022 4:40 PM CDT EXAM DESCRIPTION: ?XR CERVICAL SPINE LIMITED 2 OR 3 VIEWS (3V OR LESS) REASON FOR STUDY: ?? Chronic posterior neck pain with tingling extending down the bilateral arms in association with constant muscle pain and migraines in a patient with history of 6 bulging discs. ??No provided history of trauma. ??No provided cervical spine surgeries. TECHNIQUE: 3 ??radiographic views acquired of the cervical spine. COMPARISON: ?? No prior imaging of cervical spine available at time of interpretation. FINDINGS: ALIGNMENT: ?? Straightening of the cervical lordosis. VERTEBRAE: ?? No radiographic evidence of acute fracture. ??Vertebral body heights maintained. ?Facet joints maintained. DISCS: ?? Slight loss of intervertebral disc height at C5-6 greater than C4-5. HARDWARE: None in the cervical spine. SOFT TISSUES: ?? No acute abnormality. ??Visualized lungs clear. OTHER: ?? No other significant finding. THIS IS AN ELECTRONICALLY VERIFIED FINAL REPORT 09/19/2022 4:37 PM - Electronically signed by ??Jeff OLMEDO: HONORIO D: ??09/19/2022 4:37 PM T: ??09/19/2022 4:37 PM Report ID: [id number] Reading Location: ??[id number] Procedure Note Jeff Garcia MD - 09/19/2022 EXAM DESCRIPTION: XR CERVICAL SPINE LIMITED 2 OR 3 VIEWS (3V OR LESS) REASON FOR STUDY: Chronic posterior neck pain with tingling extending down the bilateral arms in association with constant muscle pain and migraines in a patient with history of 6 bulging discs. No provided history of trauma. No provided cervical spine surgeries. TECHNIQUE: 3 radiographic views acquired of the cervical spine. COMPARISON: No prior imaging of cervical spine available at time of interpretation. FINDINGS: ALIGNMENT: Straightening of the cervical lordosis. VERTEBRAE: No radiographic evidence of acute fracture. Vertebral body heights maintained. Facet joints maintained. DISCS: Slight loss of intervertebral disc height at C5-6 greater than C4-5. HARDWARE: None in the cervical spine. SOFT TISSUES: No acute abnormality. Visualized lungs clear. OTHER: No other significant finding. THIS IS AN ELECTRONICALLY VERIFIED FINAL REPORT 09/19/2022 4:37 PM - Electronically signed by Jeff Garcia M.D. HONORIO: HONORIO Report ID: [id number] Reading Location: [id number] IMPRESSION: 1. Straightening of the cervical lordosis in association with degenerative disc disease of the cervical spine. 2. If clinically warranted, MRI of the cervical spine without contrast can be performed for further evaluation. HERACLIO Ansari APRN DIAGNOSTIC ORDE JANEL Final Result documented in this encounter Visit Diagnoses Diagnosis Cervicalgia Other chronic pain documented in this encounter Care Teams Parts Counter Representative Relationship Specialty Start Date End Date Nadia Butcher, MAXIMUS, HERACLIO [address] [place] [address] PCP - General Advanced Practice Nurse 09/09/22 documented as of this encounter
--- OUTSIDE RECORDS SUMMARY | 2024-06-28 16:59 | XMS_ITS | Encounter Summary ---
Author Organization [email or web address] Care Team Providers Care Vice President Global Advertising Sales Name Role Phone Nadia Butcher APRN, CNP Primary Care Provi hansel Encounter Details Date Type Department Care Team (Latest Contact Info) Description 11/11/2022 Travel Social History Tobacco Use Types Packs/Day [...] on filedocumented in this encounter Care Teams Vice President Global Advertising Sales Relationship Specialty Start Date End Date Nadia Butcher APRN, DENTAL MANAGER [address] [place] [address] PCP - General Advanced Practice Nurse 09/09/22 documented as of this encounter
--- OUTSIDE RECORDS SUMMARY | 2024-06-28 16:59 | XMS_ITS | Encounter Summary ---
Author Organization [facility] Address [address] [place] [address] Phone Care Team Providers Care Hand Pattern Marker Name Role Phone Nadia Butcher APRN, HERACLIO Primary Care Provi hansel Reason for Referral * Radiology Services (Routine) - Closed Specialty Diagnoses / Procedures Referred By Contac t Referred To Contact Radiology Diagnoses Dorsalgia Other chronic pain Procedures XR LUMBAR SPINE 2 OR 3 VIEWS Nadia Butcher APRN, DIGITAL PRESS OPERATOR [address] [place] [address] Phone: tel: fax: Referral ID Status Reason Start Date Expiration Date Visits Re quested Visits Authorized [id number] Closed 09/09/2022 1 1 Reason for Visit * Radiology Services (Routine) - Closed Specialty Diagnoses / Procedures Referred By Contac t Referred To Contact Radiology Diagnoses Dorsalgia Other chronic pain Procedures XR LUMBAR SPINE 2 OR 3 VIEWS Nadia Butcher APRN, DIGITAL PRESS OPERATOR [address] [place] [address] Phone: tel: fax: Referral ID Status Reason Start Date Expiration Date Visits Re quested Visits Authorized [id number] Closed 09/09/2022 1 1 Encounter Details Date Type Department Care Team (Latest Contact Info) Description 09/09/2022 1:15 PM CDT - 09/09/2022 11:59 PM CDT Hospital Encounter [facility] Diagnostic Radiology [address] [place] [address] Nadia Butcher, LEAD CASTER HELPER, DIGITAL PRESS OPERATOR [address] [place] [address] Discharge Disposition: Discharged to home or Selfcare [...] Name Priority Date/Time Associated Diagnosis Comments XR LUMBAR SPINE 2 OR 3 VIEWS Routine 09/09/2022 1:46 PM CDT Dorsalgia Other chronic pain documented in this encounter Results * XR LUMBAR SPINE 2 OR 3 VIEWS (09/09/2022 1:46 PM CDT) Anatomical Region Laterality Modality Spine, L-spine N/A Digital Radiogra phy 09/09/2022 3:56 PM CDT Impressions 09/09/2022 3:59 PM CDT IMPRESSION: Normal lumbar spine evaluation. Narrative 09/09/2022 3:59 PM CDT EXAM DESCRIPTION: XR LUMBAR SPINE 2 OR 3 VIEWS REASON FOR STUDY: Dorsalgia, unspecified . ??Back pain. FINDINGS: Three views submitted without comparison. There are no fractures. ??Alignment is normal. ??The intervertebral disc space heights are normal. THIS IS AN ELECTRONICALLY VERIFIED FINAL REPORT 09/09/2022 3:56 PM - Electronically signed by ??Shivam Chen M.D. MF: WILIAN D: ??09/09/2022 3:56 PM T: ??09/09/2022 3:56 PM Report ID: [id number] Reading Location: ??[id number] Procedure Note Shivam Chen MD - 09/09/2022 EXAM DESCRIPTION: XR LUMBAR SPINE 2 OR 3 VIEWS REASON FOR STUDY: Dorsalgia, unspecified . Back pain. FINDINGS: Three views submitted without comparison. There are no fractures. Alignment is normal. The intervertebral disc space heights are normal. THIS IS AN ELECTRONICALLY VERIFIED FINAL REPORT 09/09/2022 3:56 PM - Electronically signed by Shivam Chen M.D. MF: [email or web address] Report ID: [id number] Reading Location: [id number] IMPRESSION: Normal lumbar spine evaluation. Nadia Butcher APRN, CNP [facility] DIAGNOSTIC ORDE RABVIVIENNE Final Result documented in this encounter Visit Diagnoses Diagnosis Dorsalgia Pain in thoracic spine Other chronic pain documented in this encounter Care Teams Hand Pattern Marker Relationship Specialty Start Date End Date Nadia Butcher APRN, CNP [address] [place] [address] PCP - General Advanced Practice Nurse 09/09/22 documented as of this encounter
--- OUTSIDE RECORDS SUMMARY | 2024-06-28 16:59 | XMS_ITS | Encounter Summary ---
Author Organization [employer] Care Team Providers Care It Network Administrator Name Role Phone Nadia Butcher APRN, SENIOR INFORMATION SECURITY CONSULTANT Primary Care Provi hansel Encounter Details Date Type Department Care Team (Latest Contact Info) Description 11/12/2022 Travel Social History Tobacco Use Types Packs/Day [...] on filedocumented in this encounter Care Teams It Network Administrator Relationship Specialty Start Date End Date Nadia Butcher, MAXIM[employer], SENIOR INFORMATION SECURITY CONSULTANT [address] [place] [address] PCP - General Advanced Practice Nurse 09/09/22 documented as of this encounter
--- OUTSIDE RECORDS SUMMARY | 2024-06-28 16:59 | XMS_ITS | Patient Health Record ---
Author Organization [facility] Address [address] [address] Care Team Providers Care Agricultural Researcher Name Role Phone Marnie EDWARDS, Inderjit Primary Care Provider Unavaila ble ALLERGIES Allergen (clinical drug ingredient) Drug/Non Drug Allergy documented on EMR Reaction Allergy Type Onset Date Status Pollen pollen (uncoded) Unknown Allergy Act theodore REASON FOR REFERRAL No Information MEDICATIONS Medication SIG (Take, Route, Fr equency, Duration) Notes Start Date End Date Status Zoloft 50 MG 1 tablet Orally Once a day Active Singulair 10 MG 1 tablet Orally Once a day Active SOCIAL HISTORY Tobacco Use: Social History Observation Description Date Details (start date - stop date) Never Smoker NA - NA Sex Assigned At : Social History Observation Description Sex Assigned At Unknown Tobacco Use/Smoking Question Answer Notes Are you a nonsmoker PROBLEMS Problem Type ICD Code Onset Dates Problem Status W/U Status Risk SNOMED Code Notes Problem 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 confirmed [id number] PLAN OF TREATMENT No Information Insurance Providers Payer Name Payer Address Payer Phone Subscriber Number Group Number Insured Name Patient Relationship to Insured Coverage Start Date Coverage End Date [facility] [address] [place] [address] [id number] JOHN MATUTE Self - patient is the insured 3 [employer] of [place] [address] [place] [address] [id number] JOHN MATUTE Self - patient is the insured 9 MEDICAL (GENERAL) HISTORY Medical History History ICD Code anxiety depression asthma Surgical History Surgery Date(Month/Year) wisdom teeth extraction
--- OUTSIDE RECORDS SUMMARY | 2024-06-28 16:59 | XMS_ITS | Encounter Summary ---
Author Organization [employer] Care Team Providers Care Snake Charmer Name Role Phone Nadia Butcher APRN, REMOTE ADVISOR Primary Care Provi hansel Encounter Details Date Type Department Care Team (Latest Contact Info) Description 09/19/2022 Travel Social History Tobacco Use Types Packs/Day [...] on filedocumented in this encounter Care Teams Snake Charmer Relationship Specialty Start Date End Date Nadia Butcher, MAXIMUS, REMOTE ADVISOR [address] [place] [address] PCP - General Advanced Practice Nurse 09/09/22 documented as of this encounter
--- OUTSIDE RECORDS SUMMARY | 2024-06-28 16:59 | XMS_ITS | Encounter Summary ---
Author Organization [facility] Address [address] [place] [address] Phone Care Team Providers Care Mobile Device Developer Name Role Phone Nadia Butcher APRN, HERACLIO Primary Care Provi hansel Reason for Visit * Reason Comments Tingling Numbness Pain * Other (Routine) - Closed Specialty Diagnoses / Procedures Referred By Donna denney Referred To Contact Neurology Diagnoses Brachial neuritis Procedures EMG Telma Burnett APRN, YARD RIGGER [address] [place] [address] Phone: tel: fax: Referral ID Status Reason Start Date Expiration Date Visits Re quested Visits Authorized [id number] Closed 10/24/2022 1 1 Encounter Details Date Type Department Care Team ([facility] Contact Info) Description 12/10/2022 1:00 PM CDT [facility] [address] [place] [phone] Telma Burnett APRN, YARD RIGGER [address] [place] [address] Brachial neuritis Discharge Disposition: Discharged to home or Selfcare [...] AM CDT documented as of this encounter Progress Notes * Jonas Blackwell MD - 12/10/2022 1:00 PM CDT Electromyogram Procedure Note Date of Procedure: 12/10/2022 [...] shows normal sensory nerve peak latency and normalsensory amplitude. The bilateral sural sensory nerve shows [...] neuropathy of bilateral upper and lower extremities. There was no evidence of radiculopathy of right upper and lower extremities. Clinical correlation is recommended. documented in this encounter Procedure Notes * Jonas Blackwell MD - 12/10/2022 1:00 PM CDTAssociated Order(s): EMG Electromyogram Procedure Note Date of Procedure: 12/10/2022 [...] shows normal sensory nerve peak latency and normalsensory amplitude. The bilateral sural sensory nerve shows [...] neuropathy of bilateral upper and lower extremities. There was no evidence of radiculopathy of right upper and lower extremities. Clinical correlation is recommended. documented in this encounter Plan of Treatment Not on file documented as of this encounter Procedures Procedure Name Priority Date/Time Associated Diagnosis Comments EMG Routine 12/10/2022 1:00 PM CDT Brachial neuritis documented in this encounter Results * EMG [...] lower extremities. ??Clinical correlation is recommended. ?? us Telma Burnett HUMAN RELATIONS MANAGER, YARD RIGGER NEUROLOGY ORDERAB LES V2 Final Result documented in this encounter Visit Diagnoses Diagnosis Brachial neuritis Brachial neuritis or radiculitis nos documented in this encounter Care Teams Mobile Device Developer Relationship Specialty Start Date End Date Nadia Butcher, HUMAN RELATIONS MANAGER, YARD RIGGER [address] [place] [address] PCP - General Advanced Practice Nurse 09/09/22 documented as of this encounter
--- OUTSIDE RECORDS SUMMARY | 2024-06-28 16:59 | XMS_ITS | Encounter Summary ---
Author Organization [facility] Address [address] [place] [address] Phone Care Team Providers Care Director Learning Name Role Phone Nadia Butcher APRN, CNP Primary Care Provi hansel Reason for Referral * Radiology Services (Routine) - Closed Specialty Diagnoses / Procedures Referred By Contac t Referred To Contact Radiology Diagnoses Cervicalgia Other chronic pain Procedures XR CERVICAL SPINE LIMITED 2 OR 3 VIEWS (3V OR LESS) Nadia Butcher APRN, PRESCRIPTION CLERK LENSES [address] [place] [address] Phone: tel: fax: Referral ID Status Reason Start Date Expiration Date Visits Re quested Visits Authorized [id number] Closed 09/19/2022 1 1 Encounter Details Date Type Department Care Team (Late st Contact Info) Description 09/19/2022 Transcribe Orders [facility] Patient Access Admitting [address] [place] [address] Nadia Butcher APRN, PRESCRIPTION CLERK LENSES [address] [place] [address] Cervicalgia (Primary Dx); Other chronic pain Social History Tobacco Use Types Packs/Day Years [...] on file documented as of this encounter Results * XR CERVICAL SPINE [...] 4:37 PM - Electronically signed by ??Jeff Garcia M.D. HONORIO: HONORIO D: ??09/19/2022 4:37 PM T: ??09/19/2022 4:37 PM Report ID: [id number] Reading Location: ??[id number] Procedure Note Jeff Garcia MD - 09/19/2022 [...] Jeff Garcia M.D. HONORIO: HONORIO Report ID: [id number] Reading Location: [id number] IMPRESSION: 1. Straightening of the cervical lordosis in association with degenerative disc disease of the cervical spine. 2. If clinically warranted, MRI of the cervical spine without contrast can be performed for further evaluation. Nadia Butcher APRN, CNP [facility] DIAGNOSTIC ORDE RABLES Final Result documented in this encounter Visit Diagnoses Diagnosis Cervicalgia- Primary Other chronic pain Cervicalgia Other chronic pain documented in this encounter Care Teams Director Learning Relationship Specialty Start Date End Date Nadia Butcher APRN, CNP [address] [place] [address] PCP - General Advanced Practice Nurse 09/09/22 documented as of this encounter
--- OUTSIDE RECORDS SUMMARY | 2024-06-28 16:59 | XMS_ITS | Encounter Summary ---
Author Organization [employer] Care Team Providers Care Headend Technician Name Role Phone Nadia Butcher APRN, AIRCRAFT ELECTRONICS TECHNICAL OFFICER Primary Care Provi hansel Encounter Details Date Type Department Care Team (Latest Contact Info) Description 02/13/2023 Travel Social History Tobacco Use Types Packs/Day [...] suspected to have Coronavirus/COVID-19? No / Unsure 02/13/2023 8:26 PM CDT documented as of this encounter Plan of Treatment Not on file documented as of this encounter Visit Diagnoses Not on filedocumented in this encounter Care Teams Headend Technician Relationship Specialty Start Date End Date Nadia Butcher, [employer]IM[employer], AIRCRAFT ELECTRONICS TECHNICAL OFFICER [address] [place] [address] PCP - General Advanced Practice Nurse 09/09/22 documented as of this encounter
--- OUTSIDE RECORDS SUMMARY | 2024-06-28 16:59 | XMS_ITS | Encounter Summary ---
Author Organization [facility] Address [address] [place] [address] Phone Care Team Providers Care Clinical Documentation Consultant Name Role Phone Nadia Butcher APRN, CNP Primary Care Provi hansel Reason for Referral * Radiology Services (Routine) - Closed Specialty Diagnoses / Procedures Referred By Contac t Referred To Contact Radiology Diagnoses Kidney stone Procedures XR ABDOMEN KUB FLAT PLATE Alexandra Butterfield APRN, CNP [address] [place] [address] Phone: tel: fax: Referral ID Status Reason Start Date Expiration Date Visits Re quested Visits Authorized [id number] Closed 02/13/2023 1 1 Encounter Details Date Type Department Care Team (Late Contact Info) Description 02/13/[address] [facility] Patient Access Admitting [address] [place] [address] Alexandra Butterfield APRN, CNP [address] [place] [address] Kidney stone (Primary Dx) Social History Tobacco Use Types Packs/Day Years Used Date Smoking Tobacco: Never Assessed Comments Unknown Sex and Gender Information Value Date Recorded Sex Assigned at Not on file Legal Sex Female 1:01 PM CDT Gender Identity Not on file Sexual Orientation Not on file documented as of this encounter Plan of Treatment Not on file documented as of this encounter Results * XR ABDOMEN KUB FLAT PLATE (02/13/2023 8:41 PM CDT) Anatomical Region Laterality Modality Abdomen N/A Digital Radiogra phy 02/14/2023 3:45 PM CDT Impressions 02/14/2023 3:48 PM CDT IMPRESSION: No acute findings. Metallic density projecting over the right pelvis, favored to be external to the patient and possibly part of the clothing. Narrative 02/14/2023 3:48 PM CDT EXAM DESCRIPTION: ?? XR ABDOMEN KUB FLAT PLATE REASON FOR STUDY: ?? Lower left sided abd pain x 1-2 weeks. ??HX: IUD removal ?? TECHNIQUE: Single AP ??radiographic view of the abdomen. COMPARISON: ?? None FINDINGS: There is a nonobstructive bowel gas pattern. ??Evaluation for free intraperitoneal air is suboptimally performed on supine radiograph. ??No convincing urolithiasis. ??Round metallic density projects over the right pelvis, favored to be external to the patient. THIS IS AN ELECTRONICALLY VERIFIED FINAL REPORT 02/14/2023 3:45 PM - Electronically signed by ??Norberto Echols M.D., JR: D: ??02/14/2023 3:45 PM T: ??02/14/2023 3:45 PM Report ID: [id number] Reading Location: ??[id number] Procedure Note Norberto Echols MD - 02/14/2023 EXAM DESCRIPTION: XR ABDOMEN KUB FLAT PLATE REASON FOR STUDY: Lower left sided abd pain x 1-2 weeks. HX: IUD removal TECHNIQUE: Single AP radiographic view of the abdomen. COMPARISON: None FINDINGS: There is a nonobstructive bowel gas pattern. Evaluation for free intraperitoneal air is suboptimally performed on supine radiograph. No convincing urolithiasis. Round metallic density projects over the right pelvis, favored to be external to the patient. THIS IS AN ELECTRONICALLY VERIFIED FINAL REPORT 02/14/2023 3:45 PM - Electronically signed by Norberto Echols M.D. JR: Report ID: [id number] Reading Location: [id number] IMPRESSION: No acute findings. Metallic density projecting over the right pelvis, favored to be external to the patient and possibly part of the clothing. Alexandra Butterfield APRN, CNP IMG DIAGNOSTIC ORDERABLE S Final Result documented in this encounter Visit Diagnoses Diagnosis Kidney stone- Primary Calculus of kidney Kidney stone Calculus of kidney documented in this encounter Care Teams Clinical Documentation Consultant Relationship Specialty Start Date End Date Nadia Butcher APRN, HERACLIO [address] [place] [address] PCP - General Advanced Practice Nurse 09/09/22 documented as of this encounter
--- OUTSIDE RECORDS SUMMARY | 2024-06-28 16:59 | XMS_ITS | Encounter Summary ---
Author Organization [facility] Address [address] [place] [address] Phone Care Team Providers Care Floral Associate Name Role Phone Nadia Butcher APRN, CNP Primary Care Provi hansel Reason for Referral * Radiology Services (Routine) - Closed Specialty Diagnoses / Procedures Referred By Donna denney Referred To Contact Radiology Diagnoses Kidney stone Procedures XR ABDOMEN KUB FLAT PLATE Alexandra Butterfield APRN, CNP [address] [place] [address] Phone: tel: fax: Referral ID Status Reason Start Date Expiration Date Visits Re quested Visits Authorized [id number] Closed 02/13/2023 1 1 Reason for Visit * Radiology Services (Routine) - Closed Specialty Diagnoses / Procedures Referred By Donna denney Referred To Contact Radiology Diagnoses Kidney stone Procedures XR ABDOMEN KUB FLAT PLATE Alexandra Butterfield APRN, HERACLIO [address] [place] [address] Phone: tel: fax: Referral ID Status Reason Start Date Expiration Date Visits Re quested Visits Authorized [id number] Closed 02/13/2023 1 1 Encounter Details Date Type Department Care Team ([facility] st Contact Info) Description 02/13/2023 8:30 PM CDT - 02/13/2023 11:59 PM CDT Hospital Encounter [facility] Diagnostic Radiology [address] [place] [address] Alexandra Butterfield, LAST SAWYER, INSPECTOR RADAR AND ELECTRONICS [address] [place] [address] Discharge Disposition: Discharged to home or Selfcare [...] Name Priority Date/Time Associated Diagnosis Comments XR ABDOMEN KUB FLAT PLATE Routine 02/13/2023 8:41 PM CDT Kidney stone documented in this encounter Results * XR ABDOMEN KUB [...] PM T: ??02/14/2023 3:45 PM Report ID: [id number] Reading Location: ??[id number] Procedure Note Norberto Echols MD - 02/14/2023 [...] by Norberto Echols M.D. JR: Report ID: [id number] Reading Location: [id number] IMPRESSION: No acute findings. Metallic density projecting over the right pelvis, favored to be external to the patient and possibly part of the clothing. Alexandra Butterfield APRN, CNP [facility] ORDERABLE S Final Result documented in this encounter Visit Diagnoses Diagnosis Kidney stone Calculus of kidney documented in this encounter Care Teams Floral Associate Relationship Specialty Start Date End Date Nadia Butcher APRN, CNP [address] [place] [address] PCP - General Advanced Practice Nurse 09/09/22 documented as of this encounter
--- OUTSIDE RECORDS SUMMARY | 2024-06-28 17:00 | XMS_ITS | Encounter Summary ---
Author Organization [facility] Address [address] [place] [address] Phone Care Team Providers Care Roller Operator Name Role Phone Nadia Butcher APRN, CNP Primary Care Provi hansel Reason for Referral * Radiology Services (Routine) - Closed Specialty Diagnoses / Procedures Referred By Contac t Referred To Contact Radiology Diagnoses Dorsalgia Other chronic pain Procedures XR LUMBAR SPINE 2 OR 3 VIEWS Nadia Butcher APRN, PLANT OPERATOR HELPER [address] [place] [address] Phone: tel: fax: Referral ID Status Reason Start Date Expiration Date Visits Re quested Visits Authorized [id number] Closed 09/09/2022 1 1 Encounter Details Date Type Department Care Team (Late st Contact Info) Description 09/09/2022 Transcribe Orders [facility] Patient Access Admitting [address] [place] [address] Nadia Butcher APRN, PLANT OPERATOR HELPER [address] [place] [address] Dorsalgia (Primary Dx); Other chronic pain Social History [...] as of this encounter Results * XR LUMBAR SPINE [...] PM T: ??09/09/2022 3:56 PM Report ID: [id number] Reading Location: ??[id number] Procedure Note Shivam Chen MD - 09/09/2022 EXAM DESCRIPTION: XR LUMBAR SPINE 2 OR 3 VIEWS REASON FOR STUDY: Dorsalgia, unspecified . Back pain. FINDINGS: Three views submitted without comparison. There are no fractures. Alignment is normal. The intervertebral disc space heights are normal. THIS IS AN ELECTRONICALLY VERIFIED FINAL REPORT 09/09/2022 3:56 PM - Electronically signed by Shivam CEDENO: WILIAN Report ID: [id number] Reading Location: [id number] IMPRESSION: Normal lumbar spine evaluation. Nadia Butcher EMPLOYMENT SPECIALIST/PROGRAM MANAGER, PLANT OPERATOR HELPER IMG DIAGNOSTIC ORDE JANEL Final Result documented in this encounter Visit Diagnoses Diagnosis Dorsalgia- Primary Pain in thoracic spine Other chronic pain Dorsalgia Pain in thoracic spine Other chronic pain documented in this encounter Care Teams Roller Operator Relationship Specialty Start Date End Date Nadia Butcher, MAXIM[employer], HERACLIO [address] [place] [address] PCP - General Advanced Practice Nurse 09/09/22 documented as of this encounter
--- OUTSIDE RECORDS SUMMARY | 2024-06-28 17:01 | XMS_ITS | Encounter Summary ---
Author Organization [facility] Address [address] [place] [address] Care Team Providers Care Regulatory Intern Name Role Phone Andreina Clayton COLOR PRINTER OPERATOR Primary Care Provide r Reason for Visit * Diagnostic Imaging (Routine) - Closed Specialty Diagnoses / Procedures Referred By Contac t Referred To Contact Diagnoses Pain of finger of right hand Pain in right hand Procedures XR Hand Right 3 or More Views XR Hand Right 2 Views Soco Castellanos, JOSÉ MIGUEL [address] [address] Phone: tel: fax: [address] [address] Referral ID Status Reason Start Date Expiration Date Visits Re quested Visits Authorized [id number] Closed 06/30/2022 07/30/2023 1 1 Encounter Details Date Type Department Care Team (Latest Contact Info) Description 06/30/2022 3:00 PM ELECTRO MECHANICAL DESIGNER - 06/30/2022 11:59 PM ELECTRO MECHANICAL DESIGNER Hospital Encounter [facility] [address] [place] [id number] Pain of finger of right hand; Pain in right hand Discharge Disposition: Discharge to home or self care Social History Tobacco Use Types Packs/Day Years Used Date Smoking Tobacco: Never Assessed Comments Unknown Sex and Gender Information Value Date Recorded Sex Assigned at Not on file Legal Sex Female 2:55 PM ELECTRO MECHANICAL DESIGNER Gender Identity Not on file Sexual Orientation Not on file documented as of this encounter Discharge Disposition Disposition Code Departure Means Destination Discharge to home or self care documented in this encounter Plan of Treatment Not on file documented as of this encounter Procedures Procedure Name Priority Date/Time Associated Diagnosis Comments XR HAND RIGHT 3 OR MORE VIEWS Schedule Routine, Read Routine (OP Routine) 06/30/2022 3:22 PM ELECTRO MECHANICAL DESIGNER Pain of finger of right hand Pain in right hand documented in this encounter Results * XR Hand Right 3 or More Views (06/30/2022 3:22 PM ELECTRO MECHANICAL DESIGNER) Anatomical Region Laterality Modality Upper Extremities, Hand Right Computed Radiography 06/30/2022 3:25 PM ELECTRO MECHANICAL DESIGNER Narrative 06/30/2022 3:26 PM ELECTRO MECHANICAL DESIGNER EXAM DESCRIPTION: ?? XR HAND RIGHT 3 OR MORE VIEWS REASON FOR STUDY: ?? crushing injury ?? Pt accidentally punched a desk the night before last. ??Most pain on the lateral side of right hand. ??No surgery. ? TECHNIQUE: Frontal, lateral and oblique ??radiographic views acquired of the right hand. COMPARISON: ?? None FINDINGS: There is no definite evidence of acute displaced fracture or dislocation involving the right hand. ??There is no definite evidence of radiopaque foreign body. ??There is mild soft tissue swelling. IMPRESSION: ?? 1. ?? Mild soft tissue swelling involving the right hand without definite evidence of acute displaced fracture or dislocation. THIS IS AN ELECTRONICALLY VERIFIED FINAL REPORT 06/30/2022 3:26 PM - Electronically signed by ??Natalie Perdue D.O. PS: PS D: ??06/30/2022 3:26 PM T: ??06/30/2022 3:26 PM Report ID: [id number] Reading Location: ??[id number] Procedure Note Natalie Perdue DO - 06/30/2022 EXAM DESCRIPTION: XR HAND RIGHT 3 OR MORE VIEWS REASON FOR STUDY: crushing injury Pt accidentally punched a desk the night before last. Most pain on the lateral side of right hand. No surgery. TECHNIQUE: Frontal, lateral and oblique radiographic views acquired ofthe right hand. COMPARISON: None FINDINGS: There is no definite evidence of acute displaced fracture or dislocation involving the right hand. There is no definite evidence of radiopaqueforeign body. There is mild soft tissue swelling. IMPRESSION: 1. Mild soft tissue swelling involving the right hand without definite evidence of acute displaced fracture or dislocation. THIS IS AN ELECTRONICALLY VERIFIED FINAL REPORT 06/30/2022 3:26 PM - Electronically signed by Natalie Perdue D.O. PS: PS Report ID: [id number] Reading Location: [place] [address] Oziel Mi MD IMG XR PROCEDURES Final Result documented in this encounter Visit Diagnoses Diagnosis Pain of finger of right hand Pain in right hand documented in this encounter Care Teams Regulatory Intern Relationship Specialty Start Date End Date Andreina Clayton NP [address] [place] [address] PCP - General Nurse Practitioner 06/30/22 documented as of this encounter
--- OUTSIDE RECORDS SUMMARY | 2024-06-28 17:01 | XMS_ITS | Clinical Summary ---
Author Organization [facility] Address [address] [place] [address] Care Team Providers Care Morals Squad Police Officer Name Role Phone Andreina Clayton NP Primary Care Provide r Social History Tobacco Use Types Packs/Day Years Used Date Smoking Tobacco: Never Assessed Personal Safety Answer Date Recorded Getting School Help Needed Not on file 08/24 Comments Unknown Sex and Gender Information Value Date Recorded Sex Assigned at Not on file Legal Sex Female 2:55 PM ROASTMASTER Gender Identity Not on file Sexual Orientation Not on file Plan of Treatment Health Maintenance Due Date Last Done Comments Cervical Cancer Screening 1997 Depression Screening 1997 Hepatitis C Screening 1997 DTaP/Tdap/Td Vaccine (1 - Tdap) 2008 Varicella Vaccines (1 of 2 - 13+ 2-dose series) 2010 HPV Vaccines (1 - 3-dose series) 2012 Hepatitis B Screening 2015 Regular Well Visit/Exam 18-64 2015 Influenza Vaccine (#1) 2024 Pneumococcal vaccine <65 Aged Out No longer eligible based on patient's age to complete this topic Insurance [facility] Care Teams Morals Squad Police Officer Relationship Specialty Start Date End Date Andreina Clayton NP [address] [place] [address] PCP - General Nurse Practitioner 06/30/22
--- OUTSIDE RECORDS SUMMARY | 2024-06-28 17:01 | XMS_ITS | Referral Summary ---
Author Organization [facility] Address [address] [place] [address] Care Team Providers Care Putty And Caulking Supervisor Name Role Phone Andreina Clayton NP Primary Care Provide r Social History Tobacco Use Types Packs/Day Years Used Date Smoking Tobacco: Never Assessed Personal Safety Answer Date Recorded Getting School Help Needed Not on file 08/24 Comments Unknown Sex and Gender Information Value Date Recorded Sex Assigned at Not on file Legal Sex Female 2:55 PM DATA COLLECTION ASSOCIATE Gender Identity Not on file Sexual Orientation Not on file Plan of Treatment Not on file Insurance [employer] [facility] Care Teams Putty And Caulking Supervisor Relationship Specialty Start Date End Date Andreina Clayton NP [address] [place] [address] PCP - General Nurse Practitioner 06/30/22
--- NOTE | 2024-07-12 20:52 | PM.OBTRLD ---
OB - Triage/Final Diagnosis Visit Information Comments/Additional reasons for admission: I have assessed the risk for this patient, Candace Fletcher, and determined that she would benefit from observation care. Final Diagnosis (1) False labor: Code(s): O47.9 - False labor, unspecified Status: Acute
== END 2024-06-21 14:24 | disposition home or self-care (01) ==
PROVIDERS: Admitting Provider Obstetrics & Gynecology; PCP Nurse Practitioner Family; Visit Provider Obstetrics & Gynecology
DX: O47.1 False labor at or after 37 completed weeks of gestation (principal); Z3A.39 39 weeks gestation of pregnancy
CPT/HCPCS: G0378; G0379

== ENCOUNTER 2024-06-25 06:05 | Inpatient (IN) | payer OTHER, SELFPAY ==
[2024-06-25] VITALS (61 sets, daily range): BP systolic 95–127; BP diastolic 34–101; PULSE 54–124; RESP 16–20; TEMP 36.2–36.8; O2SAT 86–100; BMI 30.2
[2024-06-25 07:13] LABS: Basophils Percent Auto 0.3 % (0.2-1.2); Eosinophils Absolute Auto 0.1 K/mm3 (0-0.3); Eosinophils Percent Auto 1.4 % (0-4.4); Hematocrit 36.3 % (37.0-47.0); Hemoglobin 11.4 g/dL (12.0-15.0); Immature Granulocyte Absolute 0.02 K/mm3 (0.00-0.031); Immature Granulocyte Percent A 0.3 % (0-0.5); Lymphocytes Percent Auto 20.3 % (18.3-44.2); Mean Corpuscular HGB Conc 31.4 g/dl (32-36); Mean Corpuscular Hemoglobin 23.4 pg (26-34); Mean Corpuscular Volume 74.4 fl (80-100); Mean Platelet Volume 10.2 fl (7.4-10.4); Monocytes Absolute Auto 0.6 K/mm3 (0.1-0.6); Monocytes Percent Auto 8.5 % (2.6-8.5); Neutrophils Absolute Auto 5.1 K/mm3 (1.3-6.7); Neutrophils Percent Auto 69.2 % (45.5-73.1); Platelet Count Result 229 k/mm3 (150-375); Red Blood Count 4.88 M/mm3 (4.2-5.4); White Blood Count 7.4 K/mm3 (4.5-10.0)
--- NOTE | 2024-06-25 07:52 | WPDHPUPDATE1 ---
History and Physical Update Update Date/Time: 06/25/24 07:52 28 yo at 39w6d who presents for elective IOL. History and Physical has been reviewed, including an updated exam of the patient. There are NO changes in the patient's condition. Risks, benefits, and alternatives have been discussed and questions answered. Patient agrees to proceed with procedure. A/P: Admit to L&D Routine admission orders Rh negative, will need RhoGAM GBS negative Continuous EFM Plan for AROM with Pitocin augmentation as needed
[2024-06-25 08:13] LABS: HIV 1/2 Ab P24 Ag Result Negative (Negative)
--- NOTE | 2024-06-25 08:32 | LDADM ---
This patient, Candace Fletcher, was admitted to Labor/Delivery/Recovery 104 on 06/25/24 at 06:05. Plans for labor, pain management and were discussed with patient. Patient/family oriented to hospital policies and general routines including ID bracelet, bed and alarms, visiting hours, pain management, procedures, bathroom and other care routines, personal items, smoking policy, room service/diet and guest tray routines, security routines, and visiting hours. Patient/Family are encouraged to report perceived risks to care and to ask questions if they do not understand what they are told or what they should do. See OBIX for further documentation.
[2024-06-25 08:41] LABS: Rapid Plasma Reagin Non-Reactive (NonReactive)
[2024-06-25] MEDS: LACTATED RINGERS 1,000 ML 125 ML IV CONT ×2 (09:03→11:53)
[2024-06-25] MEDS: OXYTOCIN 30 UNITS/NS 500 ML 30 UNITS/500 ML BAG IV CONT (09:07)
[2024-06-25 09:26] LABS: Anisocytosis 1+; Microcytosis 1+ (NORMAL); Platelet Estimate Adequate (Adequate); Schistocytes None Seen
[2024-06-25] MEDS: fentaNYL CITRATE INJ (*CRX) 100 MCG/2 ML VIAL 50 MCG IV PUSH (11:38)
--- NOTE | 2024-06-25 13:03 | P.PCNOB_ITS ---
OB - Vaginal Delivery Note Procedure Delivery date: 06/25/24 Induction method: AROM Delivery augmentation: Rupture of Membranes and Pitocin Delivery monitor: External FHT and External Uterine Route of delivery: Episiotomy description: None Laceration Description: None Specimen: No Quantitative Blood Loss (ml): 150 Anesthesia type: Epidural Disposition: Floor Complications: No immediate complications Narrative: Patient pushed for a spontaneous vaginal delivery. A loose nuchal cord x 1 was noted and delivered through. The fetus was delivered atraumatically and placed on the maternal abdomen. The cord was clamped and cut after 1 minute of life. The cord was double clamped and cut and a segment of cord was collected for cord gases. Cord blood was collected for blood type and Coomb's testing. The placenta delivered spontaneously and was noted to be intact. The perineum was inspected and noted to be intact. The uterus was firm and good hemostasis was noted. [place] Baby Date of : 06/25/24 Time of : 12:57 Gestational Age by Date: 39 gender: Male presentation: vertex position: Right Occiput Anterior Placenta delivery description: Spontaneous Cord Vessel Description: 3 Vessels and Nuchal Cord score one minute: 8 score five minutes: 9
[2024-06-25] MEDS: OXYTOCIN 30 UNITS/NS 500 ML 30 UNITS/500 ML BAG 125 UNITS IV CONT (13:34)
[2024-06-25] MEDS: BENZOCAINE 20% AER SPR (*SP) 56 GM CAN 1 SPRAY TOPICAL (15:38)
[2024-06-25] MEDS: WITCH HAZEL 40 PADS 1 PAD TOPICAL (15:38)
[2024-06-25] MEDS: DIBUCAINE 1% OINTMENT 30 GM TUBE 1 APPLIC TOPICAL (16:55)
[2024-06-25] MEDS: DOCUSATE SODIUM 100 MG CAPSULE PO (16:58)
--- NOTE | 2024-06-25 17:29 | PC.NURSE ---
1700. Mother verbalizes she is able to independently latch infant with appropriate positioning and alignment. She denies any nipple discomfort and is responsively . Encouraged understanding of the benefits of skin to skin (demonstrating unwrapping infant and placing upright on her chest), stimulating with massage touch, changing positions to encourage wakefulness, how to watch for early feeding cues, responsive feeding, feeding on demand (aiming for 8-12 times in 24 hours, about every 2-3 hours), milk production, building/maintaining a milk supply, duration of feeding, signs of adequate intake/output and how to record on the feeding sheet. Infant was latched to moms left breast in cross cradle position, mom reports she is able to hear lots of swallowing. Mother declines any additional assistance or education at this time. Mother is encouraged to call for assistance if her infant doesn?t latch, pain with latching, questions or concerns. Mother voiced understanding of information shared along with the mom/baby guide for an additional resource. Reported to the Primary RN.
[2024-06-26 04:32] LABS: Hematocrit 33.1 % (37.0-47.0); Hemoglobin 10.4 g/dL (12.0-15.0)
[2024-06-26] MEDS: MULTIVIT/MIN/PREN/FOL AC/IRON TABLET 1 TAB PO (08:01)
[2024-06-26] MEDS: IBUPROFEN 600 MG TABLET PO ×2 (08:01→16:53)
[2024-06-26] MEDS: FLUoxetine HCL 10 MG CAPSULE PO (08:01)
[2024-06-26] MEDS: DOCUSATE SODIUM 100 MG CAPSULE PO ×2 (08:02→16:53)
--- NOTE | 2024-06-26 08:03 | P.DS_ITS ---
DS: Admitting Diagnosis Discharge Date 06/26/24 Admitting Diagnosis intrauterine at term DS: Discharge Diagnosis Discharge Diagnosis (1) (normal spontaneous vaginal delivery): Code(s): O80 - Encounter for full-term uncomplicated delivery Status: Acute OB - DS: Summary OB Procedures : None OB Procedures Intrapartum: Spontaneous Vag Delivery OB Procedures: : None Peripartum Data Laceration Description: None Episiotomy description: None Status at Discharge Functional status at discharge: independent ambulation Overall status at discharge: patient is back to baseline Time Spent with Patient Time attestation: Total time spent providing and/or coordinating discharge services: Time spent: Less than 30 minutes Exam Const: General: comfortable and no acute distress Resp: Effort & Inspection: normal respiratory effort Auscultation: clear to auscultation bilaterally Cardio: Rate: regular rate GI: GI Palp: Yes Soft to palpation Auscultation: normal bowel sounds Other: Fundus firm below umbilicus Psych: Appearance: grossly normal Mental Status: mental status grossly normal Affect: normal affect DS: Data Data Completed and Pending Labs on day of discharge: Labs from last 24 hours 06/26/24 06/25/24 03:15 06:45 Hgb 10.4 L Hct 33.1 L Platelet Estimate Adequate Anisocytosis 1+ Microcytosis 1+ Schistocytes None seen RPR Non-reactive HIV 1&2 Ab/P24 Ag 4thGn Negative Blood Type A Negative A Negative Antibody Screen Negative Negative Screen Negative Baby's Blood Type A pos Baby's RUSSELL Negative Doses of RhIg Required 1 Discharge Plan Discharge Discharging Clinician: Miguel Angel Betancourt Activity: as tolerated and pelvic rest Diet: regular Patient Instructions: Vaginal Delivery (DC) Patient Language: Kinyarwanda Follow-up/Referrals: Miguel Angel Betancourt MD [Physician] - Discharge Medications: New acetaminophen 500 mg tablet 500 mg PO Q6H PRN (Reason: pain) Qty: 30 0RF ibuprofen 600 mg tablet 600 mg PO Q6H PRN (Reason: pain) Qty: 30 0RF Continued hydroxyzine HCl 25 mg tablet 25 mg PO TID PRN (Reason: anxiety) Qty: 30 1RF Classic 28 mg iron- 800 mcg tablet 1 tablet PO DAILY ondansetron 4 mg tablet,disintegrating 4 mg PO Q6H fluoxetine 10 mg capsule 10 mg PO DAILY Qty: 90 1RF albuterol sulfate [Ventolin HFA] 90 mcg/actuation HFA aerosol inhaler 1 puff inhalation Q4H PRN (Reason: shortness of breath or wheezing) Qty: 8.5 1RF pyridoxine (vitamin B6) 5 mg Capsule 6 mg PO DAILY magnesium glycinate 100 mg Tablet 100 mg PO DAILY Rx Instructions: This is a liquid pt takes Date of admission: 06/25/24 06:05 Primary Care Provider: Nadia Butcher Admitting Provider: Miguel Angel Betancourt Attending physician on admission: Miguel Angel Betancourt Condition: Stable
--- NOTE | 2024-06-26 08:05 | PC.NURSE ---
Mother verbalizes she is able to independently latch with appropriate positioning and alignment. She denies any nipple discomfort and is responsively . Infant is currently meeting outcomes for weight, output, jaundice, blood sugar and feeding frequencies of 8-12 times in 24 hours. Latch observed at this time with mom feeding on the left breast in cradle hold. Baby is cluster feeding and mom keeps baby skin to skin and offers the breast often. Mother declines any additional assistance or education at this time. Mother is encouraged to call for assistance if her infant doesn?t latch, pain with latching, questions or concerns. Mother voiced understanding of information shared along with the mom/baby guide for an additional resource. Reported to the Primary RN.
--- NOTE | 2024-06-26 08:14 | WPDANLDPN2 ---
Anes-Prog Note L&D Date/Time: 06/26/24 08:14 Neuro status: Neuro function grossly intact. Vital Signs: Last Vital Signs Temp 36.7 C 06/25/24 22:40 Pulse 54 L 06/25/24 22:40 Resp 16 06/25/24 22:40 BP 105/67 06/25/24 22:40 Pulse Ox 100 06/25/24 22:40 O2 Del Method Room Air 06/25/24 18:58 Pain score (VAS): 0 Patient feedback: Patient satisfied with anesthetic care.
[2024-06-26 08:50] VITALS: BP 123/75; PULSE 64; RESP 16; TEMP 36.8; O2SAT 100
[2024-06-26] MEDS: RHO(D) IMMUNE GLOBULIN 300 MCG/2 ML SYRINGE IM (10:36)
[2024-06-26 12:33] VITALS: BP 105/65; PULSE 72; RESP 16; TEMP 37.6; O2SAT 99
[2024-06-26 20:00] VITALS: BP 106/69; PULSE 85; RESP 20; TEMP 36.8; O2SAT 99
[2024-06-27 08:30] VITALS: BP 118/74; PULSE 66; RESP 16; TEMP 36.6; O2SAT 96
[2024-06-27] MEDS: FLUoxetine HCL 10 MG CAPSULE PO (09:12)
[2024-06-27] MEDS: MULTIVIT/MIN/PREN/FOL AC/IRON TABLET 1 TAB PO (09:12)
[2024-06-27] MEDS: IBUPROFEN 600 MG TABLET PO (09:12)
[2024-06-27] MEDS: DOCUSATE SODIUM 100 MG CAPSULE PO (09:12)
--- NOTE | 2024-06-27 12:19 | PC.NURSE ---
Patient was given the opportunity to view the discharge video Mother & Baby Care, The First Two Weeks and to ask questions. Patient declined viewing the video and has been given the mother/baby guide for home reference.
--- NOTE | 2024-06-27 13:20 | PC.NURSE ---
1310. Mother verbalizes she is able to independently latch infant with appropriate positioning and alignment. She denies any nipple discomfort and is responsively , she reports she believes her milk is transitioned from colostrum now and hears lots of swallowing with . is currently meeting outcomes for weight, output, jaundice, blood sugar and feeding frequencies of 8-12 times in 24 hours. Mother confirms that she would like a [facility] referral at discharge. Mother declines any additional assistance or education at this time.Mother is encouraged to call for assistance if her infant doesn?t latch, pain with latching, questions or concerns. Mother voiced understanding of information shared along with the mom/baby guide for an additional resource. Reported to the Primary RN.
--- OUTSIDE RECORDS SUMMARY | 2024-07-02 00:48 | XMS_ITS | Continuity of Care Document ---
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 Name Role Phone Nadia Butcher NP Primary Care Provider Ale Mendosa MD Admit Provider [phone] Ale Mendosa MD Attending Provider Miguel Angel Betancourt MD Attending Provider Jeovany Howard MD Attending Provider Miguel Angel Betancourt MD Admit Provider Kamla Ward APRN Primary Care Provider Benji Justin MD Other Provider Lynnette Bustillo APRN Attending Provider Nadia Butcher NP Referring Provider Estevan Bailey MD Other Provider Nelson Lyle MD Emergency Provider [phone] Guerrero Yang MD Admit Provider Guerrero Yang MD Attending Provider Care Teams Patient Care Team Team Status: Active Member Role Status Dates Kamla Ward APRN Primary Care Provider Active Visit Care Team Team Status: Inactive Member Role Status Dates Nadia Butcher NP Primary Care Provider Active Start: December 31, 2023 End: December 31, 2023 Chrissy Hutton APRN Emergency Provider Active Start: December 31, 2023 End: December 31, 2023 Miguel Angel Betancourt MD Other Provider Active Star t: December 31, 2023 End: December 31, 2023 Visit Care Team Team Status: Inactive Member Role Status Dates Nadia Butcher NP Primary Care Provider Active Start: January 05, 2024 End: January 05, 2024 Ale Mendosa MD Admit Provider, At tending Provider Active Start: January 05, 2024 End: January 05, 2024 Visit Care Team Team Status: Inactive Member Role Status Dates Ale Mendosa MD Attending Provider , Referring Provider Active Start: January 21, 2024 End: January 21, 2024 Visit Care Team Team Status: Inactive Member Role Status Dates Miguel Angel Betancourt MD Attending Provider , Referring Provider Active Start: February 12, 2024 End: February 12, 2024 Visit Care Team Team Status: Inactive Member Role Status Dates Jeovany Howard MD Attending Provide r, Referring Provider Active Start: February 17, 2024 End: February 17, 2024 Visit Care Team Team Status: Inactive Member Role Status Dates Nadia Butcher NP Primary Care Provider Active Start: March 20, 2024 End: March 20, 2024 Miguel Angel Betancourt MD Admit Provider, At tending Provider Active Start: March 20, 2024 End: March 20, 2024 Visit Care Team Team Status: Inactive Member Role Status Dates Jeovany Howard MD Attending Provide r, Referring Provider Active Start: March 23, 2024 End: March 23, 2024 Visit Care Team Team Status: Inactive Member Role Status Dates Kamla Ward APRN Primary Care Provid er, Attending Provider, Referring Provider Active Start: March 30, 2024 End: March 30, 2024 Visit Care Team Team Status: Inactive Member Role Status Dates Kamla Ward APRN Primary Care Provider Active Start: April 02, 2024 End: April 02, 2024 Miguel Angel Betancourt MD Admit Provider, At tending Provider Active Start: April 02, 2024 End: April 02, 2024 Visit Care Team Team Status: Inactive Member Role Status Dates Kamla Ward APRN Primary Care Provider Active Start: April 03, 2024 End: April 03, 2024 Ale Mendosa MD Admit Provider, At tending Provider Active Start: April 03, 2024 End: April 03, 2024 Benji Justin MD Other Provider Active Star t: April 03, 2024 End: April 03, 2024 Visit Care Team Team Status: Inactive Member Role Status Dates Miguel Angel Betancourt MD Attending Provider , Referring Provider Active Start: April 08, 2024 End: April 08, 2024 Visit Care Team Team Status: Inactive Member Role Status Dates Lynnette Bustillo APRN Attending Provider Active Start: April 09, 2024 End: April 09, 2024 Nadia Butcher NP Primary Care Pr ovider, Referring Provider Active Start: April 09, 2024 End: April 09, 2024 Visit Care Team Team Status: Active Member Role Status Dates Kamla Ward APRN Primary Care Provider Active Start: April 09, 2024 Jeovany Howard MD Attending Provider Active Start: April 09, 2024 Lynnette Bustillo APRN Referring Provider Active Start: April 09, 2024 Visit Care Team Team Status: Inactive Member Role Status Dates Kamla Ward APRN Primary Care Provider Active Start: April 14, 2024 End: April 14, 2024 Miguel Angel Betancourt MD Admit Provider, At tending Provider Active Start: April 14, 2024 End: April 14, 2024 Estevan Bailey MD Other Provider Active Start: April 14, 2024 End: April 14, 2024 Visit Care Team Team Status: Inactive Member Role Status Dates Miguel Angel Betancourt MD Attending Provider , Referring Provider Active Start: April 20, 2024 End: April 20, 2024 Visit Care Team Team Status: Inactive Member Role Status Dates Kamla Ward APRN Primary Care Provider Active Start: April 29, 2024 End: April 29, 2024 Nelson Lyle MD Emergency Provider Active St art: April 29, 2024 End: April 29, 2024 Visit Care Team Team Status: Inactive Member Role Status Dates Kamla Ward APRN Primary Care Provider Active Start: April 29, 2024 End: April 29, 2024 Miguel Angel Betancourt MD Admit Provider, At tending Provider Active Start: April 29, 2024 End: April 29, 2024 Visit Care Team Team Status: Inactive Member Role Status Dates Miguel Angel Betancourt MD Attending Provider , Referring Provider Active Start: May 04, 2024 End: May 04, 2024 Visit Care Team Team Status: Inactive Member Role Status Dates Miguel Angel Betancourt MD Attending Provider , Referring Provider Active Start: May 18, 2024 End: May 18, 2024 Visit Care Team Team Status: Inactive Member Role Status Dates Miguel Angel Betancourt MD Attending Provider , Referring Provider Active Start: June 01, 2024 End: June 01, 2024 Visit Care Team Team Status: Inactive Member Role Status Dates Miguel Angel Betancourt MD Attending Provider , Referring Provider Active Start: June 08, 2024 End: June 08, 2024 Visit Care Team Team Status: Inactive Member Role Status Dates Miguel Angel Betancourt MD Attending Provider , Referring Provider Active Start: June 15, 2024 End: June 15, 2024 Patient Care Team Team Status: Inactive Member Role Status Dates Kamla Ward APRN Primary Care Provider Active Start: June 21, 2024 End: June 21, 2024 Guerrero Yang MD Admit Provider, A ttending Provider Active Start: June 21, 2024 End: June 21, 2024 Chief Complaint and Reason for Visit Chief Complaint Admit Date MOUTH PAIN December 31, 2023 10:57 am nausea January 05, 2024 10:1 0am January 21, 2024 10:1 2am February 12, 2024 9: 24am February 17, 2024 9: 53am Contractions March 20, 2024 10:46am March 23, 2024 9:42am discussion for jose clancy March 1:59pm spotting,contractions April 02, 2024 1:56pm Cramping/Contractions April 03, 2024 12:06pm April 08, 2024 9 :48am IBS-D April 09, 2024 1 1:19am Nausea and vomiting April 092023 12:08pm Contractions April 14, 2024 2 :11pm April 20, 2024 9 :52am CP, paliptations, 31 wks preg April 292023 7:13pm Contractions, Leaking April 29, 2024 9:51pm May 04, 2024 10:46am May 18, 2024 9:50am June 01, 2024 9 :48am June 08, 2024 9:50am June 15, 2024 9:49am contractions June 21, 2024 11:57am Reason for Visit Admit Date January 21, 2024 10:1 2am February 17, 2024 9: 53am March 23, 2024 9:42am Anxiety and depression March 30, 2024 1:59pm Chronic back pain March 30, 2024 1: 59pm April 08, 2024 9 :48am Abdominal bloating April 09, 2024 1 1:19am Diarrhea April 09, 2024 1 1:19am Nausea and vomiting April 09, 2024 1 1:19am RUQ abdominal pain April 09, 2024 1 1:19am April 20, 2024 9 :52am May 04, 2024 10:46am May 18, 2024 9:50am June 01, 2024 9 :48am June 08, 2024 9:50am June 15, 2024 9:49am Reason for Referral Referring Provider Name Referring Provider Address Referring Provider Phone Referral Date Requested Appointment Date Referral Reason Lynnette Bustillo [facility] [address]; [place] [address] [facility] [address] Work Phone: April 09, 2024 R10.11 - Right upper quadrant pain,R11.2 - Nausea with vomiting, unspecified April 09, 2024 K58.9 - Irritable bowel syndrome, unspecified,R1 9.7 - Diarrhea, unspecified,R1 5.2 - Fecal urgency April 09, 2024 R10.11 - Right upper quadrant pain,R11.2 - Nausea with vomiting, unspecified To see Dr. Betancourt in the office next week Allergies, Adverse Reactions, Alerts Allergen Type Severity Reaction Last Updated Verified Status Comments metronidazole Allergy Mild Blurry Vision June 15, 2024 12:44pm Yes Active vertigo, migraine, arm numbness Social History Smoking Status Status Start Date End Date Date of Observa tion Ex-smoker (finding) June 15, 2024 9:52am Observation Status Observation Response Date of Response Do You Feel Safe in your Home? Yes Steffanie gordon 2023 9:16am Has Lack of Trans Kept You F rom Med Appts or Getting Meds? No December 23, 2023 9:16am In Past 12 Months, Were You Worried Your Food Would Run Out? Never True December 23, 2023 9:16am What is Your Housing Situati on Today? I Have Housing December 23, 2023 9:16am Gender Identity (if Verbaliz ed by the Patient) Female December 23, 2023 9:16am Are You Worried That in Next 2 Mo, You Won't Have Housing? No December 23, 2023 9:16am Do You Have Trouble Paying Y our Heating Or Electricity Bill? No December 23, 2023 9:16am Do You Have Trouble Paying F or Medicines? No December 23, 2023 9:16am Are You Currently Unemployed and Looking for Work? Yes December 23, 2023 9:16am Highest Level of Education Completed High School Diploma/GED December 23, 2023 9:16am Do You Have Trouble With Childcare/Care of a Family Member? No December 23, 2023 9:16am alcohol intake former December 23, 2023 9 :16am Substance use type marijuana December 22 9:16am Patient Sex Female June 21, 024 2:24pm Assigned Sex Female July Status Patient currently Dece mber 2023 Patient currently Decem angeli 2023 Patient currently Decem angeli 2023 Patient currently Novem angeli 2023 Patient currently Novem angeli 2023 Patient currently Octob er 2023 Patient currently Octob er 2023 Patient currently Octob er 2023 Patient currently Octob er 2023 Patient currently Octob er 2023 Patient currently Septe mber 2023 Patient currently Augus t 2023 Patient currently January 21, 2024 Family History Relationship Condition Age at Onset Recorded Date/T abe Not Specified Arthritis Unknown Depression Unknown Hyperlipidemia Unknown Carcinoma of colon Unknown Asthma Unknown mother Diabetes mellitus Unknown Hypothyroidism Unknown Hypertension Unknown father Hypertension Unknown sibling Lupus Unknown Diabetes mellitus Unknown Problems Active Problems Medical Problem Onset Date Status RUQ abdominal pain Unknown Active COVID-19 affecting in second trimester Unknown Active Family history of lupus Unknown Active Menometrorrhagia Unknown Active Right knee sprain Unknown Active contractions Unknown Active Impetigo due to Staphylococcus aureus Unknown Active Suppression of menses Unknown Active Ovarian cyst Unknown Active Pelvic pain Unknown Active Acne Unknown Active Cellulitis Unknown Active Diarrhea Unknown Active Dysmenorrhea Unknown Active Flank pain Unknown Active Flatulence Unknown Active GBS bacteriuria Unknown Active Tooth pain Unknown Active Weight loss Unknown Active Abdominal bloating Unknown Active Patella-femoral syndrome Unknown Active Bulging lumbar disc Unknown Active Fecal urgency Unknown Active Anxiety and depression Unknown Active (normal spontaneous vaginal delivery) Unkno wn Active Chronic back pain Unknown Active Right knee pain Unknown Active Chronic neck pain Unknown Active Left hip pain Unknown Active Melena Unknown Active Blood in stool Unknown Active Positive test Unknown Active Nausea and vomiting Unknown Active IBS (irritable bowel syndrome) Unknown A ctive Fall (on) (from) other stairs and steps, initial encounter Unknown Active Acute mastitis of right breast Unknown A ctive Inactive/Resolved Problems Medical Problem Onset Date Status Acute chest wall pain Unknown Resolved Anxiety Unknown Resolved Chest pain, non-cardiac Unknown Resolved Bipolar disorder with depression Unknown Resolved Dysfunctional or functional uterine hemorrhage U nknown Resolved Abscess, dental Unknown Resolved Contusion of hip, left Unknown Resolved Medications Medication Status Dose Units Route Directions Qty Days St art Date Stop Date End Date Instructions Adherence Hydroxyzine Hcl 25 mg tablet Active 25 MG PO THREE TIMES A DAY as needed for anxiety er 2023 12:00a m Vit No.126-Iron -Folic (Classic ) 28 mg iron- 800 mcg tablet Active 1 TABLET PO DAILY November 21, 2023 11:00p m Ondansetron 4 mg tablet,disi ntegrating Active 4 MG PO Q6H January 20, 2024 11:00p m Fluoxetine 10 mg capsule Active 10 MG PO DAILY 90 Octobe r 2023 11:00p m Albuterol Sulfate (Ventolin Hfa) 90 mcg/actuati on HFA aerosol inhaler Active 1 PUFF INHALA TION Q4H as needed for shortness of breath or wheezing 8.5 December 19, 2020 11:46a m Pyridoxine (Vitamin B6) 5 mg Capsule Active 6 MG PO DAILY Octobe r 2023 11:00p m Magnesium Glycinate 100 mg Tablet Active 100 MG PO DAILY Octobe r 2023 11:00p m This is a liquid pt takes Procedures Procedure Date Performed Status Urine Culture April 02, 2024 completed Yeast Culture April 03, 2024 completed Urine Culture April 14, 2024 completed Relevant Diagnostic Tests and/or Laboratory Data Laboratory Results Test Date/Time Result Interpretation Reference Range Result Comment Performing Site Urine Protein (Clinic) January 21, 2024 9:29am Negative Urine Protein (Clinic) February 17, 2024 8:53am Trace Urine Protein (Clinic) March 23, 2024 8:51am Negative Urine Protein (Clinic) April 08, 2024 8:53am Negative Susannah albicans (KEILA) April 20, 2024 9:24am Negative Negative This test was developed and its performance characteristic sdetermined by [facility]. It has not been cleared or approvedby the Food and Drug Administration . Urine Protein (Clinic) May 04, 2024 10:47am Negative Urine Protein (Clinic) May 18, 2024 9:54am 1+ Urine Protein (Clinic) June 01, 2024 9:53am Negative Vaginal/Rect al Group B Strep (PCR) June 01, 2024 10:01am Negative Negative Centers for Disease Control and Prevention (CDC) and [place] Congressof Obstetricians and Gynecologists (ACOG) guidelines for prevention ofperinatal group B streptococcal (GBS) disease specify co-collection ofa vaginal and rectal swab specimen to maximize sensitivity of GBSdetection. Per the CDC and ACOG, swabbing both the lower vagina andrectum substantially increases the yield of detection compared withsampling the vagina alone. .Penicillin G, ampicillin, or cefazolin are indicated for intrapartumpro phylaxis of GBS colonization. Reflex susceptibility testing should be performed prior to use of clindamycin only on GBSisolates from penicillin-all ergic women who are considered a high riskfor anaphylaxis. Treatment with vancomycin without additional testingis warranted if resistance to clindamycin is noted. Urine Protein (Clinic) June 08, 2024 9:57am Negative Urine Protein (Clinic) June 15, 2024 9:52am Negative Urine Glucose (Manual)(UA) January 21, 2024 9:29am Negative Urine Glucose (Manual)(UA) February 17, 2024 8:53am Negative Urine Glucose (Manual)(UA) March 23, 2024 8:51am Negative Urine Glucose (Manual)(UA) April 08, 2024 8:53am Negative Susannah glabrata (KEILA) April 20, 2024 9:24am Negative Negative This test was developed and its performance characteristic sdetermined by [facility]. It has not been cleared or approvedby the Food and Drug Administration . Urine Glucose (Manual)(UA) May 04, 2024 10:47am Negative Urine Glucose (Manual)(UA) May 18, 2024 9:54am Negative Urine Glucose (Manual)(UA) June 01, 2024 9:53am Negative Urine Glucose (Manual)(UA) June 08, 2024 9:57am Negative Urine Glucose (Manual)(UA) June 15, 2024 9:52am Negative Atopobium vaginae (PCR) April 20, 2024 9:24am Low - 0 Score This test was developed and its performance characteristic sdetermined by [facility]. It has not been cleared or approvedby the Food and Drug Administration . BVAB-2 (PCR) April 20, 2024 9:24am Low - 0 Score This test was developed and its performance characteristic sdetermined by [facility]. It has not been cleared or approvedby the Food and Drug Administration . Megasphaera- 1 (PCR) April 20, 2024 9:24am Low - 0 Score This test was developed and its performance characteristic sdetermined by [facility]. It has not been cleared or approvedby the Food and Drug Administration .Calculate total score by adding the 3 individual bacterialvagin osis (BV) marker scores together. Total score isinterpreted as follows:Total score 0-1: Indicates the absence of BV.Total score 2: Indeterminate for BV. Additional clinical data should be evaluated to establish a diagnosis.Tota l score 3-6: Indicates the presence of BV. Trichomonas vaginalis (KEILA) April 20, 2024 9:24am Negative Negative Chlamydia trachomatis (KEILA) (LAB) April 20, 2024 9:24am Negative Negative Neisseria gonorrhoeae (KEILA) (LAB) April 20, 2024 9:24am Negative Negative White Blood Count January 05, 2024 9:53am 10.1 K/mm3 Above high normal 4.5-10.0 [facility] [id number] [address] [place] [id number] White Blood Count April 09, 2024 12:28pm 11.4 K/mm3 Above high normal 4.5-10.0 [facility] [id number] [address] [place] [address] White Blood Count April 29, 2024 7:32pm 10.4 K/mm3 Above high normal 4.5-10.0 [facility] [id number] [address] [place] [address] Red Blood Count January 05, 2024 9:53am 5.30 M/mm3 4.2-5.4 [facility] [id number] [address] [place] [address] Red Blood Count April 09, 2024 12:28pm 4.23 M/mm3 4.2-5.4 [facility] [id number] [address] [place] [address] Red Blood Count April 29, 2024 7:32pm 4.13 M/mm3 Below low normal 4.2-5.4 [facility] [id number] [address] [place] [address]71 Hemoglobin January 05, 2024 9:53am 14.6 g/dL 12.0-15.0 [facility] [id number] [address] [place] [address] Hemoglobin April 09, 2024 12:28pm 11.8 g/dL Below low normal 12.0-15.0 [facility] [id number] [address] [place], [place] [address] [place] [address] Hemoglobin April 29, 2024 7:32pm 11.1 g/dL Below low normal 12.0-15.0 [facility] [id number] [address] [place] [address] Hematocrit January 05, 2024 9:53am 45.8 % 37.0-47.0 [facility] [id number] [address] [place] [address] Hematocrit April 09, 2024 12:28pm 35.5 % Below low normal 37.0-47.0 [facility] [id number] [address] [place] [address] Hematocrit April 29, 2024 7:32pm 33.1 % Below low normal 37.0-47.0 [facility] [id number] [address] [place] [address] Mean Corpuscular Volume January 05, 2024 9:53am 86.4 fL 80-100 [facility] [id number] [address] [place] [address]4485 Mean Corpuscular Volume April 09, 2024 12:28pm 83.9 fL 80-100 [facility] [id number] [address] [place] [address] 17472 Mean Corpuscular Volume April 29, 2024 7:32pm 80.1 fL 80-100 [facility] [id number] [address] [place] [address] 36682 Mean Corpuscular Hemoglobin January 05, 2024 9:53am 27.5 pg 26-34 [facility] [id number] [address] [place] [address] 88459 Mean Corpuscular Hemoglobin April 09, 2024 12:28pm 27.9 pg 26-34 [facility] [id number] [address] [place] [address]6916 Mean Corpuscular Hemoglobin April 29, 2024 7:32pm 26.9 pg 26-34 [facility] [id number] [address] [place] [address]1787 Mean Corpuscular Hemoglobin Concent January 05, 2024 9:53am 31.9 g/dL Below low normal 32-36 [facility] [id number] [address] [place] [address] Mean Corpuscular Hemoglobin Concent April 09, 2024 12:28pm 33.2 g/dL [address] [facility] [id number] [address] [address] Mean Corpuscular Hemoglobin Concent April 29, 2024 7:32pm 33.5 g/dL [address] [facility] [id number] [address] [address] Red Cell Distribution Width January 05, 2024 9:53am 13.7 % 11.5-14.5 [facility] [id number] [address] [address] Red Cell Distribution Width April 09, 2024 12:28pm 14.2 % 11.5-14.5 [facility] [id number] [address] [address] Red Cell Distribution Width April 29, 2024 7:32pm 14.2 % 11.5-14.5 [facility] [id number] [address] [address] Platelet Count January 05, 2024 9:53am 229 k/mm3 [address] [place] [address] Laboratory [id number] [address] [address] Platelet Count April 09, 2024 12:28pm 238 k/mm3 [address] [place] [address] Laboratory [id number] [address] [address] Platelet Count April 29, 2024 7:32pm 264 k/mm3 [address] [place] [address] Laboratory [id number] [address] [address] Mean Platelet Volume January 05, 2024 9:53am 10.0 fL 7.4-10.4 [facility] [id number] [address] [address] Mean Platelet Volume April 09, 2024 12:28pm 9.6 fL 7.4-10.4 [facility] [id number] [address] [address] Mean Platelet Volume April 29, 2024 7:32pm 9.6 fL 7.4-10.4 [facility] [id number] [address] [address] Nucleated Red Blood Cells % April 09, 2024 12:28pm 0.0 % 0.0-0.2 [facility] [id number] [address] [address] Nucleated Red Blood Cells % April 29, 2024 7:32pm 0.0 % 0.0-0.2 [facility] [id number] [address] [place] [address] Immature Granulocyte % (Auto) April 09, 2024 12:28pm 0.4 % 0-0.5 [facility] [id number] [address] [place] [address] Immature Granulocyte % (Auto) April 29, 2024 7:32pm 0.6 % Above high normal 0-0.5 [facility] [id number] [address] [place] [address] Neutrophils (%) (Auto) April 09, 2024 12:28pm 76.7 % Above high normal 45.5-73.1 [facility] [id number] [address] [place] [address] 21642 Neutrophils (%) (Auto) April 29, 2024 7:32pm 67.8 % 45.5-73.1 [facility] [id number] [address] [place] [address] Lymphocytes (%) (Auto) April 09, 2024 12:28pm 13.5 % Below low normal 18.3-44.2 [facility] [id number] [address] [place] [address] Lymphocytes (%) (Auto) April 29, 2024 7:32pm 19.2 % 18.3-44.2 [facility] [id number] [address] [place] [address] Monocytes (%) (Auto) April 09, 2024 12:28pm 6.6 % 2.6-8.5 [facility] [id number] [address] [place] [address] [id number] Monocytes (%) (Auto) April 29, 2024 7:32pm 9.0 % Above high normal 2.6-8.5 [facility] [id number] [address] [place] [address]27 Eosinophils (%) (Auto) April 09, 2024 12:28pm 2.6 % 0-4.4 [facility] [id number] [address] [place] [address] 16429 Eosinophils (%) (Auto) April 29, 2024 7:32pm 3.1 % 0-4.4 [facility] [id number] [address] [place] [address] 14828 Basophils (%) (Auto) April 09, 2024 12:28pm 0.2 % 0.2-1.2 [facility] [id number] [address] [place] [address] 6[address]13 Basophils (%) (Auto) April 29, 2024 7:32pm 0.3 % 0.2-1.2 [facility] [id number] [address] [place] [address]86 Nucleated RBC Absolute Count (auto) April 09, 2024 12:28pm 0.000 K/mm3 0.0-0.012 [facility] [id number] [address] [place] [address] 55257 Nucleated RBC Absolute Count (auto) April 29, 2024 7:32pm 0.000 K/mm3 0.0-0.012 [facility] [id number] [address] [place] [address] Absolute Immature Granulocyte (auto April 09, 2024 12:28pm 0.05 K/mm3 Above high normal 0.00-0.031 [facility] [id number] [address] [place] [address] 32425 Absolute Immature Granulocyte (auto April 29, 2024 7:32pm 0.06 K/mm3 Above high normal 0.00-0.031 [facility] [id number] [address] [place] [address] 09029 Absolute Neutrophils (auto) April 09, 2024 12:28pm 8.7 K/mm3 Above high normal 1.3-6.7 [facility] [id number] [address] [place] [address] 41432 Absolute Neutrophils (auto) April 29, 2024 7:32pm 7.0 K/mm3 Above high normal 1.3-6.7 [facility] [id number] [address] [place] [address] 74312 Lymphocytes # (Auto) April 09, 2024 12:28pm 1.53 K/mm3 0.9-3.2 [facility] [id number] [address] [place] [address] 39518 Lymphocytes # (Auto) April 29, 2024 7:32pm 1.99 K/mm3 0.9-3.2 [facility] [id number] [address] [place] [address] 21717 Monocytes # (Auto) April 09, 2024 12:28pm 0.8 K/mm3 Above high normal 0.1-0.6 [facility] [id number] [address] [place] [address] 51239 Monocytes # (Auto) April 29, 2024 7:32pm 0.9 K/mm3 Above high normal 0.1-0.6 [facility] [id number] [address] [place] [address] Eosinophils # (Auto) April 09, 2024 12:28pm 0.3 K/mm3 0-0.3 [facility] [id number] [address] [place] [address] Eosinophils # (Auto) April 29, 2024 7:32pm 0.3 K/mm3 0-0.3 [facility] [id number] [address] [place] [address] Basophils # (Auto) April 09, 2024 12:28pm 0.0 K/mm3 0.0-0.1 [facility] [id number] [address] [place] [address] Basophils # (Auto) April 29, 2024 7:32pm 0.0 K/mm3 0.0-0.1 [facility] [id number] [address] [place] [address] Prothrombin Time April 29, 2024 7:32pm 14.2 s 11.1-14.7 [facility] [id number] [address] [place] [address] Prothromb Time Internationa l Ratio April 29, 2024 7:32pm 1.1 INR Indication---- ----- 0.9 - 1.1 Patients not on anticoagulant therapy.2.0 - 3.0 Routine therapy.2.5 - 3.5 Recurrent myocardial infarction or mechanical prosthetic valves. [facility] [id number] [address] [place] [address] Activated Partial Thromboplast Time April 29, 2024 7:32pm 28.7 s 22.3-36.8 [facility] [id number] [address] [place], [place] [address] Urine Color January 05, 2024 11:56am Yellow Yellow [facility] [id number] [address] [place] [address] [place] [address] Urine Color March 20, 2024 10:53am Yellow Yellow [facility] [id number] [address] [place] [address] 45831 Urine Color April 02, 2024 1:28pm Yellow Yellow [facility] [id number] [address] [facility] [address] Urine Color April 03, 2024 12:53pm Yellow Yellow [facility] [id number] [address] [place] [address] 46117 Urine Color April 14, 2024 1:28pm Yellow Yellow [facility] [id number] [address] [place] [address] 23955 Urine Appearance January 05, 2024 11:56am Cloudy Above high normal Clear [facility] [id number] [address] [place] [address] 92368 Urine Appearance March 20, 2024 10:53am Clear Clear [facility] [id number] [address] [place] [address] 25264 Urine Appearance April 02, 2024 1:28pm Clear Clear [facility] [id number] [address] [place] [address] 56544 Urine Appearance April 03, 2024 12:53pm Clear Clear [facility] [id number] [address] [place] [address] 55880 Urine Appearance April 14, 2024 1:28pm Cloudy Above high normal Clear [facility] [id number] [address] [place] [address] 69878 Urine pH January 05, 2024 11:56am 5.5 5.0-9.0 [facility] [id number] [address] [place] [address] 26477 Urine pH March 20, 2024 10:53am 6.5 5.0-9.0 [facility] [id number] [address] [place] [address] 02897 Urine pH April 02, 2024 1:28pm 7.0 5.0-9.0 [facility] [id number] [address] [place] [address] 10385 Urine pH April 03, 2024 12:53pm 7.0 5.0-9.0 [facility] [id number] [address] [place] [address] 68556 Urine pH April 14, 2024 1:28pm 6.5 5.0-9.0 [facility] [id number] [address] [address] Urine Specific Cable January 05, 2024 11:56am 1.027 1.001-1.035 [facility] [id number] [address] [address] Urine Specific Cable March 20, 2024 10:53am 1.002 1.001-1.035 [facility] [id number] [address] [address] Urine Specific Cable April 02, 2024 1:28pm 1.014 1.001-1.035 [facility] [id number] [address] [address] Urine Specific Cable April 03, 2024 12:53pm 1.002 1.001-1.035 [facility] [id number] [address] [address] Urine Specific Cable April 14, 2024 1:28pm 1.013 1.001-1.035 [facility] [id number] [facility] [address] [address] Urine Protein January 05, 2024 11:56am Negative mg/dL Negative [facility] [id number] [address] [address] Urine Protein March 20, 2024 10:53am Negative mg/dL Negative [facility] [id number] [address] [address] Urine Protein April 02, 2024 1:28pm Negative mg/dL Negative [facility] [id number] [address] [address] Urine Protein April 03, 2024 12:53pm Negative mg/dL Negative [facility] [id number] [facility] [address] [address] Urine Protein April 14, 2024 1:28pm Negative mg/dL Negative [facility] [id number] [address] [address] Urine Glucose (UA) January 05, 2024 11:56am 3+ mg/dL Above high normal Negative [facility] [id number] [address] [address] Urine Glucose (UA) March 20, 2024 10:53am Negative mg/dL Negative [facility] [id number] [address] [address] Urine Glucose (UA) April 02, 2024 1:28pm Negative mg/dL Negative [facility] [id number] [address] [place] [address] 50023 Urine Glucose (UA) April 03, 2024 12:53pm Negative mg/dL Negative [facility] [id number] [address] [place] [address] 52469 Urine Glucose (UA) April 14, 2024 1:28pm Negative mg/dL Negative [facility] [id number] [address] [place] [address] 71861 Urine Ketones January 05, 2024 11:56am 4+ mg/dL Above high normal Negative [facility] [id number] [address] [place] [address] 21416 Urine Ketones March 20, 2024 10:53am Negative mg/dL Negative [facility] [id number] [address] [place] [address] 63923 Urine Ketones April 02, 2024 1:28pm Negative mg/dL Negative [facility] [id number] [address] [place] [address] 18254 Urine Ketones April 03, 2024 12:53pm Trace mg/dL Above high normal Negative [facility] [id number] [address] [place] [address] 48009 Urine Ketones April 14, 2024 1:28pm Negative mg/dL Negative [facility] [id number] [address] [place] [address] 53129 Urine Blood (Manual) January 05, 2024 11:56am Negative Negative [facility] [id number] [address] [place] [address] 19905 Urine Blood (Manual) March 20, 2024 10:53am Negative Negative [facility] [id number] [address] [place] [address] 13738 Urine Blood (Manual) April 02, 2024 1:28pm Negative Negative [facility] [id number] [address] [place] [address] 75009 Urine Blood (Manual) April 03, 2024 12:53pm Negative Negative [facility] [id number] [address] [place] [address] 42373 Urine Blood (Manual) April 14, 2024 1:28pm Negative Negative [facility] [id number] [address] [place] [address] 51416 Urine Nitrate January 05, 2024 11:56am Negative Negative [facility] [id number] [address] [place] [address] 85820 Urine Nitrate April 02, 2024 1:28pm Negative Negative [facility] [id number] [address] [place] [address] 69077 Urine Nitrate March 20, 2024 10:53am Negative Negative [facility] [id number] [address] [place] [address] 02654 Urine Nitrate April 03, 2024 12:53pm Negative Negative [facility] [id number] [address] [place] [address] 90565 Urine Nitrate April 14, 2024 1:28pm Negative Negative [facility] [id number] [address] [place] [address] 00982 Urine Bilirubin January 05, 2024 11:56am Negative Negative [facility] [id number] [address] [place] [address] 94259 Urine Bilirubin March 20, 2024 10:53am Negative Negative [facility] [id number] [address] [place] [address] 28702 Urine Bilirubin April 02, 2024 1:28pm Negative Negative [facility] [id number] [address] [place] [address] 54622 Urine Bilirubin April 03, 2024 12:53pm Negative Negative [facility] [id number] [address] [place] [address] 87717 Urine Bilirubin April 14, 2024 1:28pm Negative Negative [facility] [id number] [address] [place] [address] 05268 Urine Urobilinogen January 05, 2024 11:56am 1.0 mg/dL <2.0 [facility] [id number] [address] [place] [address] 99517 Urine Urobilinogen March 20, 2024 10:53am 0.2 mg/dL <2.0 [facility] [id number] [address] [place] [address] 16101 Urine Urobilinogen April 02, 2024 1:28pm 0.2 mg/dL <2.0 [facility] [id number] [address] [place] [address] 47541 Urine Urobilinogen April 03, 2024 12:53pm 0.2 mg/dL <2.0 [facility] [id number] [address] [place] [address] 18201 Urine Urobilinogen April 14, 2024 1:28pm 0.2 mg/dL <2.0 [facility] [id number] [address] [place] [address] 88297 Urine Leukocyte Esterase (Reflex) March 20, 2024 10:53am Negative JEREMIAS/UL Negative [facility] [id number] [address] [place] [address] 81381 Urine Leukocyte Esterase (Reflex) April 03, 2024 12:53pm Trace JEREMIAS/UL Above high normal Negative [facility] [id number] [address] [place] [address] 97992 Urine Leukocyte Esterase (Reflex) April 14, 2024 1:28pm 1+ JEREMIAS/UL Above high normal Negative [facility] [id number] [address] [place] [address] 32054 Urine Leukocyte Esterase January 05, 2024 11:56am Negative JEREMIAS/UL Negative [facility] [id number] [address] [place] [address] 64304 Urine Leukocyte Esterase April 02, 2024 1:28pm Trace JEREMIAS/UL Above high normal Negative [facility] [id number] [address] [place] [address] 27800 Urine RBC January 05, 2024 11:56am 0-2 [HPF] 0-2 [facility] [id number] [address] [place] [address] 07466 Urine RBC April 02, 2024 1:28pm 0-2 [HPF] 0-2 [facility] [id number] [address] [address] Urine RBC April 03, 2024 12:53pm 0-2 [HPF] 0-2 [facility] [id number] [address] [address] Urine RBC April 14, 2024 1:28pm 0-2 [HPF] 0-2 [facility] [id number] [address] [place] [address] 51292 Urine WBC January 05, 2024 11:56am 0-5 [HPF] 0-3 [facility] [id number] [address] [place] [address] 25923 Urine WBC April 02, 2024 1:28pm 0-5 [HPF] 0-3 [facility] [id number] [address] [address] Urine WBC April 03, 2024 12:53pm 0-5 [HPF] 0-3 [facility] [id number] [address] [address] Urine WBC April 14, 2024 1:28pm 11-20 [HPF] Above high normal 0-3 [facility] [id number] [address] [place] [address] 48058 Urine Squamous Epithelial Cells January 05, 2024 11:56am Few [HPF] Few [facility] [id number] [address] [place] [address] 80884 Urine Squamous Epithelial Cells April 02, 2024 1:28pm Occasional [HPF] Few [facility] [id number] [address] [place] [address] 33182 Urine Squamous Epithelial Cells April 03, 2024 12:53pm None seen [HPF] Few [facility] [id number] [address] [place] [address] 86678 Urine Squamous Epithelial Cells April 14, 2024 1:28pm Few [HPF] Few [facility] [id number] [address] [address] Urine Bacteria January 05, 2024 11:56am None seen [HPF] [facility] [id number] [address] [place] [address] 19908 Urine Bacteria April 02, 2024 1:28pm None seen [HPF] [facility] [id number] [address] [place] [address] 87302 Urine Bacteria April 03, 2024 12:53pm None seen [HPF] [facility] [id number] [address] [address] Urine Bacteria April 14, 2024 1:28pm 1+ [HPF] Above high normal [facility] [id number] [address] [address] Fibronectin April 03, 2024 12:54pm Negative [facility] [id number] [address] [place] [address] 10118 Sodium Level January 05, 2024 9:53am 134 mmol/L Below low normal 137-145 [facility] [id number] [address] [place] [address] 51110 Sodium Level April 29, 2024 7:32pm 133 mmol/L Below low normal 137-145 [facility] [id number] [address] [place] [address] 16073 Potassium Level January 05, 2024 9:53am 4.2 mmol/L 3.4-5.0 [facility] [id number] [address] [place] [address] 47482 Potassium Level April 29, 2024 7:32pm 3.7 mmol/L 3.4-5.0 [facility] [id number] [address] [address] Chloride Level January 05, 2024 9:53am 108 mmol/L Above high normal -107 [facility] [id number] [address] [address] Chloride Level April 29, 2024 7:32pm 106 mmol/L 98-107 [facility] [id number] [address] [address] Carbon Dioxide Level January 05, 2024 9:53am 8 mmol/L Below low normal -30 [facility] [id number] [address] [address] Carbon Dioxide Level April 29, 2024 7:32pm 21 mmol/L Below low normal 30 [facility] [id number] [address] [address] Anion Gap January 05, 2024 9:53am 18 mmol/L Above high normal 10-03 [facility] [id number] [address] [address] Anion Gap April 29, 2024 7:32pm 6 mmol/L 10-03 [facility] [id number] [address] [address] Blood Urea Nitrogen January 05, 2024 9:53am 8 mg/dL 01-07 [facility] [id number] [address] [address] Blood Urea Nitrogen April 29, 2024 7:32pm 8 mg/dL 01-07 [facility] [id number] [address] [address] Creatinine January 05, 2024 9:53am 0.50 mg/dL Below low normal 0.7-1.0 [facility] [id number] [address] [address] Creatinine April 29, 2024 7:32pm 0.40 mg/dL Below low normal 0.7-1.0 [facility] [id number] [address] [address] Estimat Glomerular Filtration Rate January 05, 2024 9:53am > 60 >59 > OR = 60 ml/min/1.73 square metersThe MDRD formula used to calculate the eGFR result has not been validated in patients > 70 years of age. [facility] [id number] [address] [place] [address] 32539 Estimat Glomerular Filtration Rate April 29, 2024 7:32pm > 60 >59 > OR = 60 ml/min/1.73 square metersThe MDRD formula used to calculate the eGFR result has not been validated in patients > 70 years of age. [facility] [id number] [address] [place] [address] 28926 Estimated Creatinine Clearance Calc January 05, 2024 9:53am Not Reportable [facility] [id number] [address] [place] [address] 80852 Estimated Creatinine Clearance Calc April 29, 2024 7:32pm 165 mL/min For use in prescription drug dose determination only. Reference ranges have not been establishe for this calculation. [facility] [id number] [address] [place] [address] 82974 Glucose Level January 05, 2024 9:53am 70 mg/dL 65-110 [facility] [id number] [address] [place] [address] 98407 Glucose Level April 29, 2024 7:32pm 102 mg/dL 65-110 [facility] [id number] [address] [place] [address] 02543 Glucose 1 Hour 50 gm Load April 09, 2024 12:28pm 110 mg/dL <130 [facility] [id number] [address] [place] [address] 47779 Calcium Level January 05, 2024 9:53am 8.7 mg/dL 8.4-10.2 [facility] [id number] [address] [place] [address] 20266 Calcium Level April 29, 2024 7:32pm 8.8 mg/dL 8.4-10.2 [facility] [id number] [address] [place] [address] 45503 Total Bilirubin January 05, 2024 9:53am 0.7 mg/dL 0.2-1.3 [facility] [id number] [address] [place] [address] 75650 Total Bilirubin April 29, 2024 7:32pm 0.3 mg/dL 0.2-1.3 [facility] [id number] [address] [place] [address] 40373 Aspartate Amino Transf (AST/SGOT) January 05, 2024 9:53am 21 U/L 14- [facility] [id number] [address] [place] [address] Aspartate Amino Transf (AST/SGOT) April 29, 2024 7:32pm 22 U/L [facility] [id number] [address] [place] [address] Alanine Aminotransfe rase (ALT/SGPT) January 05, 2024 9:53am 24 U/L [facility] [id number] [address] [place] [address] Alanine Aminotransfe rase (ALT/SGPT) April 29, 2024 7:32pm 19 U/L [facility] [id number] [address] [place] [address] Troponin I April 29, 2024 7:32pm < 0.012 ng/mL 0.000-0.034 Acute myocardial injury is indicated by:1. A troponin value of >0.034 ng/mL and/or2. A 20% change in troponin value.Specimen s with biotin concentrations up to 2.5 ng/mL demonstrate a less than or equal to 10% change in results. Biotin concentrations greater than this falsely decrease Troponin results for patient samples. [facility] [id number] [address] [place] [address] Total Protein January 05, 2024 9:53am 8.0 g/dL 6.3-8.2 [facility] [id number] [address] [place] [address] Total Protein April 29, 2024 7:32pm 7.0 g/dL 6.3-8.2 [facility] [id number] [address] [place] [address] Albumin January 05, 2024 9:53am 4.6 g/dL 3.5-5.1 [facility] [id number] [address] [place] [address] Albumin April 29, 2024 7:32pm 3.4 g/dL Below low normal 3.5-5.1 [facility] [id number] [address] [place] [address] Alkaline Phosphatase January 05, 2024 9:53am 67 U/L 38-126 [facility] [id number] [address] [place] [address] Alkaline Phosphatase April 29, 2024 7:32pm 125 U/L 38-126 [facility] [id number] [address] [place] [address] Lipase April 29, 2024 7:32pm 239 U/L 23-300 [facility] [id number] [address] [place] [address] SARS-CoV-2 RNA (RT-PCR) April 29, 2024 8:26pm Negative Negative This assay is designed to detect the RdRp and N genes of SARS-CoV-2 using nucleic acid amplification. A negative result does not preclude the possibility of 2019-nCoV infection since the adequacy of sample collection and/or low viral burden may result in the presence of viral nucleic acids levels below the analytical sensitivity of this test method. Positive results are indicative of the presence of SARS-CoV-2 RNA and do not rule out bacterial infection or co-infection with other viruses. Test results should be used along with other clinical observations, patient history, epidemiologica l information and laboratory data in making the diagnosis.This test has received FDA Emergency Use Authorization and has been verified by [facility]. This test is only authorized for the duration of the declaration and the circumstances that exist to justify the authorization of the emergency use of in vitro diagnostic tests for the detection of SARS-CoV-2 virus and/or diagnosis of COVID-19 infection under section 564(b)(1) of the Act. 11 U.S.C. 360bbb-3(b)(1) , unless the authorization is terminated or revoked sooner.[facility] is certified under CLIA-88 as qualified to perform high complexity testing. This testing was performed in the [facility] [place] [address] (CLIA License #[id number], CAP #[id number], AU-ID # [id number]).Facts heet for healthcare providers: https://www.Shipp[employer] a.gov/media/ 4416/downloadF actsheet for patients: https://www.Shippable a.gov/media/ 5654/download [facility] [id number] [facility] [place] [address] Influenza Type B (RT-PCR) April 29, 2024 8:26pm Negative Negative The test is performed on the [employer] Dx System and utilized automated real-time polymerase chain reaction (PCR) to detect presence of the Influenza A and/or Influenza B virus. Positive results are indicative of the presence of the identified virus but cannot rule out bacterial infection or co-infection with other pathogens not detected by the test. Negative should not be used as the sole basis for treatment or other patient management decisions. Negative results must be combined with clinical observations, patient history, and/or epidemiologica l information. [facility] [id number] [address] [place] [address] Influenza Type A (RT-PCR) April 29, 2024 8:26pm Negative Negative The test is performed on the [employer] Dx System and utilized automated real-time polymerase chain reaction (PCR) to detect presence of the Influenza A and/or Influenza B virus. Positive results are indicative of the presence of the identified virus but cannot rule out bacterial infection or co-infection with other pathogens not detected by the test. Negative should not be used as the sole basis for treatment or other patient management decisions. Negative results must be combined with clinical observations, patient history, and/or epidemiologica l information. [facility] [id number] [address] [place], [place] [id number] Rapid Plasma Reagin April 09, 2024 12:28pm Non-reactiv e NonReactive [facility] [id number] [address] [place], [place] [address] HIV (1&2) Ab and P24 Ag, 4th Gener April 09, 2024 12:28pm Negative Negative Negative [facility] [id number] [address] [place], [place] [address] Membranes Rupture April 29, 2024 10:35pm Rom plus negative Negative ROM Plus Negative Telcor POC Urine Casts January 05, 2024 11:56am 0-2 [facility] [id number] [address] [place] [address] Urine Casts April 02, 2024 1:28pm 0-2 [facility] [id number] [address] [place] [address] Urine Casts April 03, 2024 12:53pm 0-2 [facility] [id number] [address] [place] [address] Urine Casts April 14, 2024 1:28pm 0-2 [facility] [id number] [address] [place], [place] [id number] Add Urine Microanalysi s April 03, 2024 12:53pm Reviewed [facility] [id number] [address] [place] [address] Add Urine Microanalysi s April 14, 2024 1:28pm Reviewed [facility] [id number] [address] [address] Bacterial Vaginosis Panel (LAB) April 03, 2024 12:53pm Negative NEGATIVE THIS TEST WAS PERFORMED AT:[facility] [id number] [place] [id number] -LIEU VO,MD [facility]-Galact os[facility] Disclaimer April 09, 2024 12:28pm Y [facility]act [facility] Method April 09, 2024 12:28pm Not Reportable [facility] Interpretati on April 09, 2024 12:28pm Not Reportable [facility] Galactose-al pha-1,3-Gala ctose IgE April 09, 2024 12:28pm Negative [facility] Pork Allergen IgE Antibody April 09, 2024 12:28pm <0.10 [facility] Conventional Class April 09, 2024 12:28pm 0 [facility] Beef Allergen IgE Antibody April 09, 2024 12:28pm <10.0 [facility] Beef Conventional Class April 09, 2024 12:28pm 0 [facility] Swanson Allergen IgE Antibody April 09, 2024 12:28pm <0.10 [facility] (Meat) Conventional Class April 09, 2024 12:28pm 0 [facility] Gal Interpretati on April 09, 2024 12:28pm See comment Specific Level of AllergenIGE Class kU/L Specific IGE Antibody ----- --------- ----- 0 <0.10 Absent/Undetec table 0/1 0.10-0.34 Very Low Level 1 0.35-0.69 Low Level 2 0.70-3.49 Moderate Level 3 3.50-17.4 High Level 4 17.5-49.9 Very High Level 5 50-100 Very High Level 6 >100 Very High Level The clinical relevance of allergen results of0.10-0.34 kU/L are undetermined and intended for specialist use. Allergens denoted with a include results usingone or more analyte specific reagents. In thosecases, the test was developed and its analyticalperf ormance characteristic s have been determined by[employer]. It has not been cleared or approvedby the U.S. Food and Drug Administration . This assay has been validated pursuant to the CLIA regulations and is used for clinical purposes.THIS TEST WAS PERFORMED AT: [facility] [id number] [address]ER[place] PURCELL [id number] -LIEU VO,MD [facility]biology Results Procedure Source Result Collection Date/Time Result Date/Time Result Comment Performing Site Urine Culture Clean Catch Midstream April 02, 2024 2:28pm April 04, 2024 12:09am [facility] Urine Culture Urine Clean Catch April 14, 2024 2:28pm April 15, 2024 9:54pm [facility] Yeast Culture Vaginal Susannah albicans April 03, 2024 1:53pm April 07, 2024 12:23pm [facility] Vital Signs Vital Reading Result Reference Range Collection Date/Time Height 62 [in_i] December 31, 2023 10:15am Weight 65.77 kg December 31, 2023 10:15am Body Temperature 97.7 [degF] 97.6-99.6 December 30, 2 024 10:15am Heart Rate 88 /min 60-100 December 31, 2023 10:15am Respiratory rate 16 /min 12-December 30, 2 024 10:15am Oxygen saturation by Pulse oximetry 100 % 90-100 December 31, 2023 10:15 am BP Systolic 102 mm[Hg] 100-140 December 31, 2023 10:15am BP Diastolic 74 mm[Hg] 60-90 December 31, 2023 10:15am Height 62 [in_i] January 05, 2024 10:32am Weight 66.00 kg January 05, 2024 10:32am Heart Rate 84 /min 60-100 January 05, 2024 9:30am Oxygen saturation by Pulse oximetry 100 % 90-100 January 05, 2024 9:41 am BP Systolic 108 mm[Hg] 100-140 January 05, 2024 9:30am BP Diastolic 62 mm[Hg] 60-90 January 05, 2024 9:30am BMI (Body Mass Index) 26.6 kg/m2 December 222023 10:32am Height 62 [in_i] January 21, 2024 9:39am Weight 66.67 kg January 21, 2024 9:39am BP Systolic 110 mm[Hg] 100-140 January 21, 2024 9:39am BP Diastolic 60 mm[Hg] 60-90 January 21, 2024 9:39am BMI (Body Mass Index) 26.9 kg/m2 December 242023 9:39am Height 62 [in_i] February 16 8:52am Weight 68.49 kg February 16 8:52am BP Systolic 104 mm[Hg] 100-140 February 16 8:52am BP Diastolic 68 mm[Hg] 60-90 February 16 8:52am BMI (Body Mass Index) 27.6 kg/m2 February 17, 2024 8:52am Heart Rate 92 /min 60-100 March 20, 2024 10:45am BP Systolic 103 mm[Hg] 100-140 March 20, 2024 10:45am BP Diastolic 61 mm[Hg] 60-90 March 20, 2024 10:45am Height 62 [in_i] March 23, 2024 8:45am Weight 71.66 kg March 23, 2024 8:45am BP Systolic 122 mm[Hg] 100-140 March 23, 2024 8:45am BP Diastolic 68 mm[Hg] 60-90 March 23, 2024 8:45am BMI (Body Mass Index) 28.9 kg/m2 2023 8:45am Height 62 [in_i] March 30 1:11pm Weight 69.45 kg March 30 1:11pm Body Temperature 97.9 [degF] 97.6-99.6 March 1:11pm Heart Rate 83 /min 60-100 March 30 1:11pm Oxygen saturation by Pulse oximetry 98 % 90-100 March 30, 2024 1: 11pm BP Systolic 98 mm[Hg] 100-140 March 30 1:11pm BP Diastolic 46 mm[Hg] 60-90 March 30 1:11pm BMI (Body Mass Index) 28.0 kg/m2 Octobe r 2023 1:11pm Height 62 [in_i] April 02, 1:51pm Weight 69.50 kg April 02, 2 024 1:51pm Heart Rate 72 /min 60-100 April 02, 2 024 2:15pm BP Systolic 99 mm[Hg] 100-140 April 02, 2 024 2:15pm BP Diastolic 54 mm[Hg] 60-90 April 02, 2 024 2:15pm BMI (Body Mass Index) 28.0 kg/m2 Octobe r 2023 1:51pm Height 62 [in_i] April 03, 2 024 12:01pm Weight 69.50 kg April 03, 2 024 12:01pm Body Temperature 98.4 [degF] 97.6-99.6 March 12:36pm Heart Rate 72 /min 60-100 April 03, 2 024 1:00pm Respiratory rate 16 /min 12-March 12:36pm Oxygen saturation by Pulse oximetry 100 % 90-100 April 03, 2024 1 :05pm BP Systolic 106 mm[Hg] 100-140 April 03, 2 024 1:00pm BP Diastolic 60 mm[Hg] 60-90 April 03, 2 024 1:00pm BMI (Body Mass Index) 28.0 kg/m2 Octobe r 2023 12:01pm Height 62 [in_i] April 08, 2 024 8:52am Weight 71.66 kg April 08, 2 024 8:52am BP Systolic 120 mm[Hg] 100-140 April 08, 2 024 8:52am BP Diastolic 62 mm[Hg] 60-90 April 08, 2 024 8:52am BMI (Body Mass Index) 28.9 kg/m2 Octobe r 2023 8:52am Height 62 [in_i] April 09, 2 024 10:33am Weight 72.12 kg April 09, 2 024 10:33am Body Temperature 97.6 [degF] 97.6-99.6 March 10:33am Heart Rate 77 /min 60-100 April 09, 2 024 10:33am Respiratory rate 16 /min 12-March 10:33am Oxygen saturation by Pulse oximetry 98 % 90-100 April 09, 2024 1 0:33am BP Systolic 94 mm[Hg] 100-140 April 09, 2 024 10:33am BP Diastolic 64 mm[Hg] 60-90 April 09, 2 024 10:33am BMI (Body Mass Index) 29.0 kg/m2 Octobe r 2023 10:33am Height 62 [in_i] April 14, 2 024 2:03pm Weight 73.00 kg April 14, 2 024 2:03pm Heart Rate 82 /min 60-100 April 14, 2 024 2:30pm BP Systolic 110 mm[Hg] 100-140 April 14, 2 024 2:30pm BP Diastolic 61 mm[Hg] 60-90 April 14, 2 024 2:30pm BMI (Body Mass Index) 29.4 kg/m2 Octobe r 2023 2:03pm Height 62 [in_i] April 20, 2 024 8:53am Weight 73.48 kg April 20, 2 024 8:53am BP Systolic 116 mm[Hg] 100-140 April 20, 2 024 8:53am BP Diastolic 60 mm[Hg] 60-90 April 20, 2 024 8:53am BMI (Body Mass Index) 29.6 kg/m2 Octobe r 2023 8:53am Height 62 [in_i] April 29, 2 024 7:18pm Weight 76.36 kg April 29, 2 024 7:18pm Body Temperature 98.4 [degF] 97.6-99.6 April 8:57pm Heart Rate 68 /min 60-100 April 29, 2 024 8:57pm Respiratory rate 20 /min 12-20 April 8:57pm Oxygen saturation by Pulse oximetry 100 % 90-100 April 29, 2024 8 :57pm BP Systolic 111 mm[Hg] 100-140 April 29, 2 024 8:57pm BP Diastolic 57 mm[Hg] 60-90 April 29, 2 024 8:57pm Height 62 [in_i] April 29, 2 024 11:09pm Weight 75.00 kg April 29, 2 024 11:09pm Body Temperature 97.5 [degF] 97.6-99.6 April 11:37pm Heart Rate 61 /min 60-100 April 29, 2 024 11:30pm Oxygen saturation by Pulse oximetry 99 % 90-100 April 29, 2024 1 1:19pm BP Systolic 112 mm[Hg] 100-140 April 29, 2 024 11:30pm BP Diastolic 55 mm[Hg] 60-90 April 29, 2 024 11:30pm BMI (Body Mass Index) 30.2 kg/m2 [facility] 11:09pm Height 62 [in_i] May 04, 2024 10:46am Weight 73.48 kg May 04, 2024 10:46am BP Systolic 124 mm[Hg] 100-140 May 04, 2024 10:46am BP Diastolic 78 mm[Hg] 60-90 May 04, 2024 10:46am BMI (Body Mass Index) 29.6 kg/m2 [facility] 2023 10:46am Height 62 [in_i] May 18, 2024 9:58am Weight 74.38 kg May 18, 2024 9:58am BP Systolic 122 mm[Hg] 100-140 May 18, 2024 9:58am BP Diastolic 68 mm[Hg] 60-90 May 18, 2024 9:58am BMI (Body Mass Index) 29.9 kg/m2 [facility] 2023 9:58am Height 62 [in_i] June 01, 2 024 10:00am Weight 73.48 kg June 01, 2 024 10:00am BP Systolic 102 mm[Hg] 100-140 June 01, 2 024 10:00am BP Diastolic 60 mm[Hg] 60-90 June 01, 2 024 10:00am BMI (Body Mass Index) 29.6 kg/m2 [facility] 2023 10:00am Height 62 [in_i] June 08, 2024 9:59am Weight 74.84 kg June 08, 2024 9:59am BP Systolic 102 mm[Hg] 100-140 June 08, 2024 9:59am BP Diastolic 60 mm[Hg] 60-90 June 08, 2024 9:59am BMI (Body Mass Index) 30.2 kg/m2 [facility] 2023 9:59am Height 62 [in_i] June 15, 2024 9:54am Weight 74.84 kg June 15, 2024 9:54am BP Systolic 112 mm[Hg] 100-140 June 15, 2024 9:54am BP Diastolic 60 mm[Hg] 60-90 June 15, 2024 9:54am BMI (Body Mass Index) 30.2 kg/m2 [facility] 2023 9:54am Height 62 [in_i] June 21, 2024 2:13pm Weight 75.00 kg June 21, 2024 2:13pm BMI (Body Mass Index) 30.2 kg/m2 [facility] 2023 2:13pm Advance Directives Advance Directive Response Recorded Date/ Time Current Advance Directive No Septem angeli 2023 10:05am Current Advance Directive No Octobe r 2023 12:01pm Current Advance Directive No Octobe r 2023 1:40pm Current Advance Directive No Novemb er 2023 11:09pm Current Advance Directive No Decemb er 2023 2:13pm Insurance Providers Guarantor Candace Fletcher Address spring [facility] [phone] Contact Info. Home Phone: Payer Policy Id Coverage Id Subscriber's Name Subscriber Id Effective Date Expiration Date [facility] [id number] 37 [id number] Luis Fletcher Jr. [id number] Encounters Encounter Location(s) Arrival/Admit Date Discharge/Depart Date Provider(s) [facility] December 31, 2023 9:57am December 31, 2023 10:33am Discharged Inpatient [facility] January 05, 2024 9:10am January 05, 2024 4:30pm Ale Mendosa MD Departed Physician/Provi hansel Office Visit [facility] [place] January 21, 2024 9:12am January 21, 2024 10:12am Ale Mendosa MD Departed Physician/Provi hansel Office Visit [facility] [place] February 12, 2024 8:24am February 12, 2024 9:23am Miguel Angel Betancourt MD Departed Physician/Provi hansel Office Visit [facility] [place] February 17, 2024 8:53am February 17, 2024 9:24am Jeovany Howard MD Discharged Inpatient [facility] March 20, 2024 9:46am March 20, 2024 11:36am Miguel Angel Betancourt MD Departed Physician/Provi hansel Office Visit [facility] [place] March 23, 2024 8:42am March 23, 2024 9:14am Jeovany Howard MD Departed Physician/Provi hansel Office Visit [facility] March 30, 2024 12:59pm March 30, 2024 1:39pm Kamla Ward APRN Discharged Inpatient [facility] Post April 02, 2024 12:56pm April 02, 2024 4:00pm Miguel Angel Betancourt MD Discharged Inpatient [facility] Post April 03, 2024 11:06am April 03, 2024 3:07pm Ale Mendosa MD Departed Physician/Provi hansel Office Visit [facility] [place] April 08, 2024 8:48am April 08, 2024 9:32am Miguel Angel Betancourt MD Departed Physician/Provi hansel Office Visit [facility] April 09, 2024 10:19am April 09, 2024 10:56am Lynnette Bustillo APRN Registered [facility] April 09, 2024 11:08am Jeovany Howard MD Discharged Inpatient [facility] Post April 14, 2024 1:11pm April 14, 2024 3:04pm Miguel Angel Betancourt MD Departed Physician/Provi hansel Office Visit [facility] [place] April 20, 2024 8:52am April 20, 2024 9:52am Miguel Angel Betancourt MD Departed Emergency [facility] Emergency Department April 29, 2024 7:13pm April 29, 2024 9:55pm Discharged Inpatient [facility] Post April 29, 2024 9:51pm April 29, 2024 11:47pm Miguel Angel Betancourt MD Departed Physician/Provi hansel Office Visit [facility] [place] May 04, 2024 10:46am May 04, 2024 11:04am Miguel Angel Betancourt MD Departed Physician/Provi hansel Office Visit [facility] [place] May 18, 2024 9:50am May 18, 2024 10:20am Miguel Angel Betancourt MD Departed Physician/Provi hansel Office Visit [facility] [place] June 01, 2024 9:48am June 01, 2024 10:29am Miguel Angel Betancourt MD Departed Physician/Provi hansel Office Visit [facility] [place] June 08, 2024 9:50am June 08, 2024 10:14am Miguel Angel Betancourt MD Departed Physician/Provi hansel Office Visit [facility] [place] June 15, 2024 9:49am June 15, 2024 10:13am Miguel Angel Betancourt MD Discharged Inpatient [facility] Labor/Delivery/R ecovery June 21, 2024 11:57am June 21, 2024 2:24pm Guerrero Yang MD Recent Diagnosis Onset Date Admit Date Unknown January 21, 2024 10:12am Unknown February 16 9:53am Unknown March 23, 2024 9:42am Anxiety and depression Unknown March 302023 1:59pm Chronic back pain Unknown March 30, 2 024 1:59pm Unknown April 08 9:48am Abdominal bloating Unknown April 09, 2024 11:19am Diarrhea Unknown April 09 11:19am Nausea and vomiting Unknown March 11:19am RUQ abdominal pain Unknown April 09, 2024 11:19am Unknown April 20 9:52am Unknown May 04, 2 024 10:46am Unknown May 18, 2 024 9:50am Unknown June 01 9:48am Unknown June 08, 2 024 9:50am Unknown June 15, 2 024 9:49am Mental Status Observation Response Date Recorded oriented to person Yes December 30 10:21am oriented to place Yes December 31, 2023 10:21am oriented to time Yes December 31, 2023 10:21am oriented to person Yes April 09, 2024 11:27am oriented to place Yes April 09, 2024 11:27am oriented to time Yes April 09 11:27am patient oriented x3 Yes March 11:27am patient oriented x3 Yes March 30, 2024 5:53pm Cognitive/Mental Status Assessments Assessments Diagnosis Onset Date Resolution Status Admit Date noneactive January 20 10:12am noneactive February 16 9:53am noneactive February 9:42am Anxiety and depression acute Oc tober 2023 1:59pm Chronic back pain acute March 30, 2024 1:59pm noneactive April 08, 2024 9:48am Abdominal bloating acute Octobe r 2023 11:19am Diarrhea acute April 09, 2024 11:19am Nausea and vomiting acute Octob er 2023 11:19am RUQ abdominal pain acute Octobe r 2023 11:19am noneactive April 20, 2024 9:52am noneactive May 04, 2024 10:46am noneactive May 18, 2024 9:50am noneactive June 01, 2024 9:48am noneactive June 08, 2024 9:50am noneactive June 15, 2024 9:49am Plan of Treatment Author [facility] Authored April 09, 2024 1 1:33am 1) RUQ pain/nausea/vomiting/early satiety/appetite loss/weight loss: EGD in 2019 while living in [place] and per patient it was normal. Recent HIDA scan and ultrasound were normal, gallbladder EF @ 67%. Amylase and lipase normal. LFT's were normal except ALT @ 82. Celiac panel negative. Patient has tried making dietary modifications including a dairy free diet and caffeine avoidance in the past with no change. She uses Zofran as needed which she states does help with her nausea. She is having intermittent generalized and RUQ pain that is sharp and crampy in nature. Abdominal pain, nausea and vomiting that gets worse if she eats red meats. She is currently and due in mid June. When she avoids red meats the nausea and vomiting improved. Her appetite and early satiety has improved. Denies any weight loss and is having a normal about of weight gain with her . Alpha gal panel ordered, patient denies known tick exposure but has GI symptoms when she is exposed to red meats Continue Zofran as needed Will plan for endoscopic evaluation in July after her son is born 2) Change in bowel habits-diarrhea/abdominal bloating/rectal bleeding: Per patient she had a normal colonoscopy in 2019. Paternal grandmother diagnosed with colon cancer. Fecal calprotectin, fecal elastase and celiac panel were all negative/normal. Previously prescribed Xifaxan which was not filled due to cost. She did complete a course of Augmentin but noticed no change in symptoms. When using p.r.n. dicyclomine she states that her abdominal cramping seem to be worse. She is having 3-4 loose to liquid urgent bowel movements daily that do not have a direct correlation with food intake. Admits to trace amount of rectal bleeding noted on toilet paper after bowel movements which she thought was secondary to known hemorrhoids. She has made significant diet changes and avoiding non problematic foods including red meat. Bloating has improved but not resolved. Continue conservative treatment options such as Phazyme and IB Barby as needed OTC Imodium as needed to address abdominal discomfort and increased bowel frequency Colonoscopy and EGD ordered in July Patient advised to contact the office is she has any change in symptoms between now and her scopes The patients' follow up office visit will be determined at time of endoscopy. This report may have been done utilizing a voice recognition system. Attempts have been made to correct errors. However, there may be uncorrected grammatical, spelling, and recognition errors present. Author Kamla [facility] Authored March 30, 2024 5: 57pm Defer to OB-AIRCRAFT SERVICER on managemen t of anxiety symptoms due to current . Discussed may be beneficial to trial another period on sertraline or another med with appropriate Category if OB-AIRCRAFT SERVICER feels it is appropriate, her NV symptoms may have been from her 1st trimester symptoms as well. Pt aware to follow up. Pt has prior medical marijuana card for chronic pain/fibromyalgia issues, however, will not be reinstituting her card with today's visit as she is currently . Discussed not to use marijuana during due to risks to developing fetus. Discussed defer to OB-AIRCRAFT SERVICER recommendations on appropriate pain management. Pt is amenable to this. Future Tests Future scheduled test information is unavailable Pending Tests Pending diagnostic test information is unavailable Future Visits Future appointment information is unavailable Referrals to Other Providers Reason for Referral Referral Start Date Provider Provider Contact Information Provider Address Nadia Butcher Work Phone: [address] [place] [address] K58.9 - Irritable bowel syndrome, unspecified,R19.7 - Diarrhea, unspecified,R15.2 - Fecal urgency April 09, [address] [facility] [address] R10.11 - Right upper quadrant pain,R11.2 - Nausea with vomiting, unspecified April 09, [address] [facility] [address] Miguel Angel Betancourt MD Work P taye: [address] [address] [address] [place] [address] Miguel Angel Betancourt MD Work P taye: [phone] [facility] [address] [place] [address] Betancourt in the office next week Miguel Angel Betancourt MD Work Phone: [phone] [address] [address] [place] [address] Miguel Angel Betancourt MD Work P taye: [address] [facility] [address] [place] [address] Miguel Angel Betancourt MD Work P taye: [address] [facility] [address] [place] [address] Kamla Ward APRN Work Ph one: [address] [place] [address] Miguel Angel Betancourt MD Work P taye: [address] [facility] [address] [place] [address] Miguel Angel Betancourt MD Work P taye: [phone] [place] [address] Future Procedures Procedure Name Ordered Date Scheduled Date Discharge Order March 20, 2024 11:35am Sep tember 2023 11:35am Placement to Observation March 20, 2024 10 :31am March 20, 2024 9:46am Discharge Order April 02, 2024 3:41pm Octobe r 2023 3:41pm Placement to Observation April 02, 2024 1:23 pm April 02, 2024 12:56pm Discharge Order April 03, 2024 2:50pm Octobe r 2023 2:35pm Placement to Observation April 03, 2024 12:0 0pm April 03, 2024 11:06am Discharge Order April 14, 2024 2:57pm Octobe r 2023 2:57pm Placement to Observation April 14, 2024 1:25 pm April 14, 2024 1:11pm Discharge Order January 05, 2024 3:56pm December 3:56pm Placement to Observation January 05, 2024 9:16am January 05, 2024 9:10am Discharge Order April 29, 2024 11:26pm Novem 2023 10:16pm Placement to Observation April 29, 2024 11:0 6pm April 29, 2024 9:51pm Discharge Order June 21, 2024 2:17pm Decem 2023 2:17pm Placement to Observation June 21, 2024 2:1 1pm June 21, 2024 11:57am Future Medications Future medication information is unavailable Patient Instructions Instruction Admit Date Antibiotic Form Dental Abscess (ED) December 31, 2023 10:57am Antibiotic Form January 05, 2024 10:1 0am (AC) Diet (GEN) at 27 to 30 Weeks (AC) at 15 to 18 Weeks (AC) at 23 to 26 Weeks (AC) at 7 to 10 Weeks (AC) at 19 to 22 Weeks (AC) at 31 to 34 Weeks (AC) at 39 to 40 Weeks (AC) at 11 to 14 Weeks (AC) at 35 to 38 Weeks (AC) January 21, 2024 10:12am (AC) Diet (GEN) at 27 to 30 Weeks (AC) at 15 to 18 Weeks (AC) at 23 to 26 Weeks (AC) at 7 to 10 Weeks (AC) at 19 to 22 Weeks (AC) at 31 to 34 Weeks (AC) at 39 to 40 Weeks (AC) at 11 to 14 Weeks (AC) at 35 to 38 Weeks (AC) March 23, 2024 9:42am Back Pain (AC) Back Pain (GEN) Anxiety (AC) March 30, 2024 1:59pm Antibiotic Form April 03, 2024 1 2:06pm Antibiotic Form April 14, 2024 2 :11pm Chest Pain (ED) April 29, 2024 7 :13pm Antibiotic Form April 29, 2024 9 :51pm (AC) Diet (GEN) at 27 to 30 Weeks (AC) at 15 to 18 Weeks (AC) at 23 to 26 Weeks (AC) at 7 to 10 Weeks (AC) at 19 to 22 Weeks (AC) at 31 to 34 Weeks (AC) at 39 to 40 Weeks (AC) at 11 to 14 Weeks (AC) at 35 to 38 Weeks (AC) May 18, 2024 9:50am (AC) Diet (GEN) at 27 to 30 Weeks (AC) at 15 to 18 Weeks (AC) at 23 to 26 Weeks (AC) at 7 to 10 Weeks (AC) at 19 to 22 Weeks (AC) at 31 to 34 Weeks (AC) at 39 to 40 Weeks (AC) at 11 to 14 Weeks (AC) at 35 to 38 Weeks (AC) June 01, 2024 9:48am (AC) Diet (GEN) at 27 to 30 Weeks (AC) at 15 to 18 Weeks (AC) at 23 to 26 Weeks (AC) at 7 to 10 Weeks (AC) at 19 to 22 Weeks (AC) at 31 to 34 Weeks (AC) at 39 to 40 Weeks (AC) at 11 to 14 Weeks (AC) at 35 to 38 Weeks (AC) June 08, 2024 9:50am (AC) Diet (GEN) at 27 to 30 Weeks (AC) at 15 to 18 Weeks (AC) at 23 to 26 Weeks (AC) at 7 to 10 Weeks (AC) at 19 to 22 Weeks (AC) at 31 to 34 Weeks (AC) at 39 to 40 Weeks (AC) at 11 to 14 Weeks (AC) at 35 to 38 Weeks (AC) June 15, 2024 9:49am Hospital Discharge Instructions Additional Instructions OB ANTEPARTUM DISCHARGE INSTRUCTIONS This information is given to help you properly care for yourself at home after your discharge from the hospital. Follow these instructions until your doctor tells you otherwise. DIET: Eat Three Well Balanced Meals per Day Additional Diet Instructions: ACTIVITY: As Tolerated Additional Activity Instructions: RETURN TO LABOR AND DELIVERY IF YOU HAVE: Any Change In Baby's Normal Movement Pattern Any Leakage of Fluid Contractions 3-5 Minutes Apart with Increasing Intensity Vaginal Bleeding Additional Reasons to Return to Labor and Delivery: Contractions may feel like abdominal pain, tightening, cramping, pressure, back ache, or thigh ache. OTHER INSTRUCTIONS: FOLLOW-UP CARE: Keep Next Scheduled Appointment To see in/on Valuables released to patient or family? N/A Medications from home returned to patient? N/A IF YOU HAVE ANY QUESTIONS REGARDING THESE INSTRUCTIONS, PLEASE CALL [phone]. IF PROBLEMS ARISE, CALL YOUR PROVIDER. IF EMERGENCY CARE IS NEEDED, [facility] EMER[facility] RO[facility] IS AVAILABLE 24 HOURS A DAY.
--- OUTSIDE RECORDS SUMMARY | 2024-07-02 00:48 | XMS_ITS | Patient Health Record ---
Author Organization [facility] Address [address] [place] [address] Care Team Providers Care Reactor Fueling Supervisor Name Role Phone Marnie EDWARDS, Inderjit Primary [...] recurrent major depressive disorder (F33.0) Active confirmed [id number] PLAN OF TREATMENT No Information Insurance Providers Payer Name Payer Address Payer Phone Subscriber Number Group Number Insured Name Patient Relationship to Insured Coverage Start Date Coverage End Date [facility] [address] [place] [address] [id number] JOHN MATUTE Self - patient is the insured 3 Medicaid of [place] [address] [place] [address] [id number] JOHN MATUTE Self - patient is the insured 9 MEDICAL (GENERAL) HISTORY Medical History History ICD Code anxiety depression asthma Surgical History Surgery Date(Month/Year) wisdom teeth extraction
--- OUTSIDE RECORDS SUMMARY | 2024-07-02 00:49 | XMS_ITS | Patient Health Record ---
Author Organization [facility] Address [address] [place] [address] Care Team Providers Care Loader Engineer Name Role Phone Malini Gallardonati Primary Care [...] Problem Status W/U Status Risk Notes Problem [id number] Mild intermitten t asthma without complication (J45.20) Active confirmed Problem 82500277 Recurrent major depressive disorder, in full remission (F33.42) Active confirmed Problem 59107897 Irritable bowel syndrome with both constipation and diarrhea (K58.2) Active confirmed Plan Of Treatment No Information Insurance Providers Payer Name Payer Address Payer Phone Subscriber Number Group Number Insured Name Patient Relationship to Insured Coverage Start Date Coverage End Date [facility] [address] [place] [address] [id number] Candace Fletcher Self - patient is the insured [place] [address] [place] [address] [id number] Candace Fletcher Self - patient is the insured Medical (General) History Medical History History ICD Code depression Surgical History Surgery Date(Month/Year) widom teeth 2018 Hospitalization History Reason Date(Month/Year) child 2019
--- OUTSIDE RECORDS SUMMARY | 2024-07-02 00:49 | XMS_ITS | Encounter Summary ---
Author Organization [facility] Address [address] [place] [address] Phone Care Team Providers Care Retail Services Professional Name Role Phone Nadia Butcher APRN, CNP Primary Care Provi hansel Reason for Visit * PT/OT/ST (Routine) - Closed Specialty Diagnoses / Procedures Referred By Contac t Referred To Contact Rehabilitation Diagnoses Low back pain, unspecified Telma Burnett APRN, ASSISTANT SALES DIRECTOR [address] [place] [address] Phone: tel: fax: [facility] at [facility] [address], [place] [address] [address] Phone: tel: fax: Referral ID Status Reason Start Date Expiration Date Visits Re quested Visits Authorized [id number] Closed 1 1 Encounter Details Date Type Department Care Team (Latest Contact Info) Description 11/12/2022 9:30 AM CDT Physical Therapy [facility] [address], [place] [address] [address] Telma Brunett APRN, ASSISTANT SALES DIRECTOR [address] [place] [address] Gerda Rob, PT [place] Chronic thoracic back [...] back based on MRIs and xrays in [place]. Her neck and low back pain was gotten increasingly worse since then. She was also diagnosed with arthritis in September 2022. 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, moves very slowly, cannot [...] style: demonstration and hands-on - Preferred language: Citizen Of [place] - Certified Neurodiagnostic Technologist needed: No Written attendance policy reviewed: Yes [...] relief, soft tissue extensibility and joint mobility (58318) - Therapeutic exercise program for: motion/mobility, strengthening, flexibility, and functional limitations (60001) - Therapeutic activities for functional activities education/training, and in home safety recommendations as appropriate (71758) - Neuro Muscular Re-education for body mechanics education, and postural re- education as appropriate (74966) - Patient education regarding posture, ergonomics, body mechanics, HEP progression and exercise performance - Individualized home exercise program - Mechanical traction (06189) - Trigger point dry needling for pain relief and reducing tension in associated musculature (78738 or ) Precautions: none Future treatment sessions [...] Lumbago documented in this encounter Care Teams Retail Services Professional Relationship Specialty Start Date End Date Nadia Butcher APRN, ASSISTANT SALES DIRECTOR [address] [place] [address] PCP - General Advanced Practice Nurse 09/09/22 documented as of this encounter
--- OUTSIDE RECORDS SUMMARY | 2024-07-02 00:49 | XMS_ITS | Encounter Summary ---
Author Organization [facility] Address [address] [place] [address] Phone Care Team Providers Care Retarder Operator Name Role Phone Nadia Butcher APRN, HERACLIO Primary Care Provi hansel Reason for Referral * Radiology Services (Routine) - Closed Specialty Diagnoses / Procedures Referred By Contac t Referred To Contact Radiology Diagnoses Cervicalgia Other chronic pain Procedures XR CERVICAL SPINE LIMITED 2 OR 3 VIEWS (3V OR LESS) Nadia Butcher APRN, SUPERVISOR METER SHOP [address] [place] [address] Phone: tel: fax: Referral ID Status Reason Start Date Expiration Date Visits Re quested Visits Authorized [id number] Closed 09/19/2022 1 1 Reason for Visit * Radiology Services (Routine) - Closed Specialty Diagnoses / Procedures Referred By Contac t Referred To Contact Radiology Diagnoses Cervicalgia Other chronic pain Procedures XR CERVICAL SPINE LIMITED 2 OR 3 VIEWS (3V OR LESS) Nadia Butcher APRN, SUPERVISOR METER SHOP [address] [place] [address] Phone: tel: fax: Referral ID Status Reason Start Date Expiration Date Visits Re quested Visits Authorized [id number] Closed 09/19/2022 1 1 Encounter Details Date Type Department Care Team (Latest Contact Info) Description 09/19/2022 11:00 AM CDT - 09/19/2022 11:59 PM CDT Hospital Encounter [facility] Diagnostic Radiology [address] [place] [address] Nadia Butcher, DIRECTOR OF PULMONARY UNIT, SUPERVISOR METER SHOP [address] [place] [address] Discharge Disposition: Discharged to home or Selfcare [...] PM T: ??09/19/2022 4:37 PM Report ID: [id number] Reading Location: ??[id number] Procedure Note Jeff Garcia MD - 09/19/2022 [...] Jeff Garcia M.D. HONORIO: HONORIO Report ID: [id number] Reading Location: [id number] IMPRESSION: 1. Straightening of the cervical lordosis in association with degenerative disc disease of the cervical spine. 2. If clinically warranted, MRI of the cervical spine without contrast can be performed for further evaluation. HERACLIO Ansari APRN DIAGNOSTIC ORDE JANEL Final Result documented in this encounter Visit Diagnoses Diagnosis Cervicalgia Other chronic pain documented in this encounter Care Teams Retarder Operator Relationship Specialty Start Date End Date Nadia Butcher, MAXIMUS, HERACLIO [address] [place] [address] PCP - General Advanced Practice Nurse 09/09/22 documented as of this encounter
--- OUTSIDE RECORDS SUMMARY | 2024-07-02 00:49 | XMS_ITS | Encounter Summary ---
Author Organization [facility] Address [address] [place] [address] Phone Care Team Providers Care Quality Head Name Role Phone Nadia Butcher APRN, CNP Primary Care Provi hansel Reason for Referral * Radiology Services (Routine) - Closed Specialty Diagnoses / Procedures Referred By Contac t Referred To Contact Radiology Diagnoses Cervicalgia Other chronic pain Procedures XR CERVICAL SPINE LIMITED 2 OR 3 VIEWS (3V OR LESS) Nadia Butcher APRN, PRODUCT TRAINER [address] [place] [address] Phone: tel: fax: Referral ID Status Reason Start Date Expiration Date Visits Re quested Visits Authorized [id number] Closed 09/19/2022 1 1 Encounter Details Date Type Department Care Team (Late st Contact Info) Description 09/19/2022 Transcribe Orders [facility] Patient Access Admitting 1 [place] [address] Nadia Butcher APRN, PRODUCT TRAINER [address] [place] [address] Cervicalgia (Primary Dx); Other chronic [...] PM T: ??09/19/2022 4:37 PM Report ID: [id number] Reading Location: ??[id number] Procedure Note Jeff Garcia MD - 09/19/2022 [...] Jeff Garcia M.D. HONORIO: HONORIO Report ID: [id number] Reading Location: [id number] IMPRESSION: 1. Straightening of the cervical lordosis in association with degenerative disc disease of the cervical spine. 2. If clinically warranted, MRI of the cervical spine without contrast can be performed for further evaluation. Nadia Butcher APRN, CNP [facility] DIAGNOSTIC ORDE RABLES Final Result documented in this encounter Visit Diagnoses Diagnosis Cervicalgia- Primary Other chronic pain Cervicalgia Other chronic pain documented in this encounter Care Teams Quality Head Relationship Specialty Start Date End Date Nadia Butcher APRN, CNP [address] [place] [address] PCP - General Advanced Practice Nurse 09/09/22 documented as of this encounter
--- OUTSIDE RECORDS SUMMARY | 2024-07-02 00:49 | XMS_ITS | Encounter Summary ---
Author Organization [facility] Address [address] [place] [address] Phone Care Team Providers Care Bobbin Trucker Name Role Phone Nadia Butcher APRN, LEAD MACHINIST Primary Care Provi hansel Reason for Visit * Reason Onset Date Comments Social Concerns 10/15/2023 Encounter Details Date Type Department Care Team (Late st Contact Info) Description 10/15/2023 Patient Outreach [facility] [address] [place] [address] Navigator, [place] Social Concerns Social History Tobacco Use Types [...] on filedocumented in this encounter Care Teams Bobbin Trucker Relationship Specialty Start Date End Date Nadia Butcher, INTERNAL SALESPERSON, LEAD MACHINIST [address] [place] [address] PCP - General Advanced Practice Nurse 09/09/22 documented as of this encounter
--- OUTSIDE RECORDS SUMMARY | 2024-07-02 00:49 | XMS_ITS | Encounter Summary ---
Author Organization [employer] Care Team Providers Care Inspector Final Assembly Mechanical Name Role Phone Nadia Butcher APRN, LIBRARY CLERICAL ASSISTANT Primary Care Provi hansel Encounter Details Date [...] on filedocumented in this encounter Care Teams Inspector Final Assembly Mechanical Relationship Specialty Start Date End Date Nadia Butcher, MAXIMUS, LIBRARY CLERICAL ASSISTANT [address] [place] [address] PCP - General Advanced Practice Nurse 09/09/22 documented as of this encounter
--- OUTSIDE RECORDS SUMMARY | 2024-07-02 00:49 | XMS_ITS | Encounter Summary ---
Author Organization [employer] Care Team Providers Care Poultry Culler Name Role Phone Nadia Butcher APRN, HOLISTIC SPECIALIST Primary Care Provi hansel Encounter Details Date [...] on filedocumented in this encounter Care Teams Poultry Culler Relationship Specialty Start Date End Date Nadia Butcher, MAXIMUS, HOLISTIC SPECIALIST [address] [place] [address] PCP - General Advanced Practice Nurse 09/09/22 documented as of this encounter
--- OUTSIDE RECORDS SUMMARY | 2024-07-02 00:49 | XMS_ITS | Encounter Summary ---
Author Organization [facility] Address [address] [place] [address] Phone Care Team Providers Care Alumnae Secretary Name Role Phone Nadia Butcher APRN, HERACLIO Primary Care Provi hansel Reason for Visit * Reason Comments Tingling Numbness Pain * Other (Routine) - Closed Specialty Diagnoses / Procedures Referred By Donna denney Referred To Contact Neurology Diagnoses Brachial neuritis Procedures EMG Telma Burnett APRN, HIGH SPEED OPERATOR [address] [place] [address] Phone: tel: fax: Referral ID Status Reason Start Date Expiration Date Visits Re quested Visits Authorized [id number] Closed 10/24/2022 1 1 Encounter Details Date Type Department Care Team ([facility] Contact Info) Description 12/10/2022 1:00 PM CDT [facility] [address] [place] [phone] Telma Burnett APRN, HIGH SPEED OPERATOR [address] [place] [address] Brachial neuritis Discharge Disposition: Discharged to home [...] correlation is recommended. ?? us Telma Burnett ROLLER HELPER, HIGH SPEED OPERATOR NEUROLOGY ORDERAB LES V2 Final Result documented in this encounter Visit Diagnoses Diagnosis Brachial neuritis Brachial neuritis or radiculitis nos documented in this encounter Care Teams Alumnae Secretary Relationship Specialty Start Date End Date Nadia Butcher, ROLLER HELPER, HIGH SPEED OPERATOR [address] [place] [address] PCP - General Advanced Practice Nurse 09/09/22 documented as of this encounter
--- OUTSIDE RECORDS SUMMARY | 2024-07-02 00:49 | XMS_ITS | Encounter Summary ---
Author Organization [employer] Care Team Providers Care Fish Cutter Name Role Phone Nadia Butcher APRN, INSECTICIDE MIXER Primary Care Provi hansel Encounter Details Date [...] on filedocumented in this encounter Care Teams Fish Cutter Relationship Specialty Start Date End Date Nadia Butcher, MAXIMUS, INSECTICIDE MIXER [address] [place] [address] PCP - General Advanced Practice Nurse 09/09/22 documented as of this encounter
--- OUTSIDE RECORDS SUMMARY | 2024-07-02 00:49 | XMS_ITS | Encounter Summary ---
Author Organization [facility] Address [address] [place] [address] Phone Care Team Providers Care Regulatory Affairs Manager Name Role Phone Nadia Butcher APRN, CNP Primary Care Provi hansel Reason for Referral * Radiology Services (Routine) - Closed Specialty Diagnoses / Procedures Referred By Donna denney Referred To Contact Radiology Diagnoses Kidney stone Procedures XR ABDOMEN KUB FLAT PLATE Alexandra Butterfield APRN, CNP [address] [place] [address] Phone: tel: fax: Referral ID Status Reason Start Date Expiration Date Visits Re quested Visits Authorized [id number] Closed 02/13/2023 1 1 Reason for Visit * Radiology Services (Routine) - Closed Specialty Diagnoses / Procedures Referred By Donna denney Referred To Contact Radiology Diagnoses Kidney stone Procedures XR ABDOMEN KUB FLAT PLATE Alexnadra Butterfield APRN, HERACLIO [address] [place] [address] Phone: tel: fax: Referral ID Status Reason Start Date Expiration Date Visits Re quested Visits Authorized [id number] Closed 02/13/2023 1 1 Encounter Details Date Type Department Care Team ([facility] st Contact Info) Description 02/13/2023 8:30 PM CDT - 02/13/2023 11:59 PM CDT Hospital Encounter [facility] Diagnostic Radiology [address] [place] [address] Alexandra Butterfield, NURSE TECHNICIAN, OPTICAL DISPENSER [address] [place] [address] Discharge Disposition: Discharged to home or Selfcare [...] PM T: ??02/14/2023 3:45 PM Report ID: [id number] Reading Location: ??[id number] Procedure Note Norberto Echols MD - 02/14/2023 [...] by Norberto Echols M.D. JR: Report ID: [id number] Reading Location: [id number] IMPRESSION: No acute findings. Metallic density projecting over the right pelvis, favored to be external to the patient and possibly part of the clothing. Alexandra Butterfield APRN, CNP [facility] DIAGNOSTIC ORDERABLE S Final Result documented in this encounter Visit Diagnoses Diagnosis Kidney stone Calculus of kidney documented in this encounter Care Teams Regulatory Affairs Manager Relationship Specialty Start Date End Date Nadia Butcher APRN, CNP [address] [place] [address] PCP - General Advanced Practice Nurse 09/09/22 documented as of this encounter
--- OUTSIDE RECORDS SUMMARY | 2024-07-02 00:49 | XMS_ITS | Encounter Summary ---
Author Organization [facility] Address [address] [place] [address] Phone Care Team Providers Care Jailor Name Role Phone Nadia Butcher APRN, HERACLIO Primary Care Provi hansel Reason for Referral * Radiology Services (Routine) - Closed Specialty Diagnoses / Procedures Referred By Contac t Referred To Contact Radiology Diagnoses Dorsalgia Other chronic pain Procedures XR LUMBAR SPINE 2 OR 3 VIEWS Nadia Butcher APRN, WHEEL GRINDER [address] [place] [address] Phone: tel: fax: Referral ID Status Reason Start Date Expiration Date Visits Re quested Visits Authorized [id number] Closed 09/09/2022 1 1 Reason for Visit * Radiology Services (Routine) - Closed Specialty Diagnoses / Procedures Referred By Contac t Referred To Contact Radiology Diagnoses Dorsalgia Other chronic pain Procedures XR LUMBAR SPINE 2 OR 3 VIEWS Nadia Butcher APRN, WHEEL GRINDER [address] [place] [address] Phone: tel: fax: Referral ID Status Reason Start Date Expiration Date Visits Re quested Visits Authorized [id number] Closed 09/09/2022 1 1 Encounter Details Date Type Department Care Team (Latest Contact Info) Description 09/09/2022 1:15 PM CDT - 09/09/2022 11:59 PM CDT Hospital Encounter [facility] Diagnostic Radiology [address] [place] [address] Nadia Butcher, CADD MANAGER, WHEEL GRINDER [address] [place] [address] Discharge Disposition: Discharged to home or Selfcare [...] PM T: ??09/09/2022 3:56 PM Report ID: [id number] Reading Location: ??[id number] Procedure Note Sihvam Chen MD - 09/09/2022 EXAM DESCRIPTION: XR LUMBAR SPINE 2 OR 3 VIEWS REASON FOR STUDY: Dorsalgia, unspecified . Back pain. FINDINGS: Three views submitted without comparison. There are no fractures. Alignment is normal. The intervertebral disc space heights are normal. THIS IS AN ELECTRONICALLY VERIFIED FINAL REPORT 09/09/2022 3:56 PM - Electronically signed by Shivam Chen M.D. MF: [email or web address] Report ID: [id number] Reading Location: [id number] IMPRESSION: Normal lumbar spine evaluation. Nadia Butcher APRN, CNP [facility] DIAGNOSTIC ORDE RABVIVIENNE Final Result documented in this encounter Visit Diagnoses Diagnosis Dorsalgia Pain in thoracic spine Other chronic pain documented in this encounter Care Teams Jailor Relationship Specialty Start Date End Date Nadia Butcher APRN, CNP [address] [place] [address] PCP - General Advanced Practice Nurse 09/09/22 documented as of this encounter
--- OUTSIDE RECORDS SUMMARY | 2024-07-02 00:49 | XMS_ITS | Encounter Summary ---
Author Organization [facility] Address [address] [place] [address] Phone Care Team Providers Care Primer Press Operator Name Role Phone Nadia Butcher APRN, CNP Primary Care Provi hansel Reason for Referral * Radiology Services (Routine) - Closed Specialty Diagnoses / Procedures Referred By Contac t Referred To Contact Radiology Diagnoses Dorsalgia Other chronic pain Procedures XR LUMBAR SPINE 2 OR 3 VIEWS Nadia Butcher APRN, WOODS MANAGER [address] [place] [address] Phone: tel: fax: Referral ID Status Reason Start Date Expiration Date Visits Re quested Visits Authorized [id number] Closed 09/09/2022 1 1 Encounter Details Date Type Department Care Team (Late st Contact Info) Description 09/09/2022 Transcribe Orders [facility] Patient Access Admitting [address] [place] [address] Nadia Butcher APRN, WOODS MANAGER [address] [place] [address] Dorsalgia (Primary Dx); Other chronic [...] PM T: ??09/09/2022 3:56 PM Report ID: [id number] Reading Location: ??[id number] Procedure Note Shivam Chen MD - 09/09/2022 EXAM DESCRIPTION: XR LUMBAR SPINE 2 OR 3 VIEWS REASON FOR STUDY: Dorsalgia, unspecified . Back pain. FINDINGS: Three views submitted without comparison. There are no fractures. Alignment is normal. The intervertebral disc space heights are normal. THIS IS AN ELECTRONICALLY VERIFIED FINAL REPORT 09/09/2022 3:56 PM - Electronically signed by Shivam CEDENO: WILIAN Report ID: [id number] Reading Location: [id number] IMPRESSION: Normal lumbar spine evaluation. Nadia Butcher STORE WORKER, WOODS MANAGER IMG DIAGNOSTIC ORDE JANEL Final Result documented in this encounter Visit Diagnoses Diagnosis Dorsalgia- Primary Pain in thoracic spine Other chronic pain Dorsalgia Pain in thoracic spine Other chronic pain documented in this encounter Care Teams Primer Press Operator Relationship Specialty Start Date End Date Nadia Butcher, MAXIMUS, HERACLIO [address] [place] [address] PCP - General Advanced Practice Nurse 09/09/22 documented as of this encounter
--- OUTSIDE RECORDS SUMMARY | 2024-07-02 00:49 | XMS_ITS | Encounter Summary ---
Author Organization [employer] Care Team Providers Care Commission Associate Name Role Phone Nadia Butcher APRN, ASSOCIATE JUSTICE Primary Care Provi hansel Encounter Details Date [...] on filedocumented in this encounter Care Teams Commission Associate Relationship Specialty Start Date End Date Nadia Butcher, MAXIMUS, ASSOCIATE JUSTICE [address] [place] [address] PCP - General Advanced Practice Nurse 09/09/22 documented as of this encounter
--- OUTSIDE RECORDS SUMMARY | 2024-07-02 00:49 | XMS_ITS | Encounter Summary ---
Author Organization [employer] Care Team Providers Care Awning Hanger Helper Name Role Phone Nadia Butcher APRN, CNP [...] on filedocumented in this encounter Care Teams Awning Hanger Helper Relationship Specialty Start Date End Date Nadia Butcher APRN, LUMBER STICKER [address] [place] [address] PCP - General Advanced Practice Nurse 09/09/22 documented as of this encounter
--- OUTSIDE RECORDS SUMMARY | 2024-07-02 00:49 | XMS_ITS | Encounter Summary ---
Author Organization [facility] Address [address] [place] [address] Phone Care Team Providers Care Marine Steamfitter Name Role Phone Nadia Butcher APRN, CNP Primary Care Provi hansel Reason for Referral * Other (Routine) - Closed Specialty Diagnoses / Procedures Referred By Donna denney Referred To Contact Neurology Diagnoses Brachial neuritis Procedures EMG Telma Burnett APRN, CNP [address] [id number] Phone: tel: fax: Referral ID Status Reason Start Date Expiration Date Visits Re quested Visits Authorized [id number] Closed 10/24/2022 1 1 * Other (Routine) - Closed Specialty Diagnoses / Procedures Referred By Donna denney Referred To Contact Neurology Diagnoses Lumbar radiculopathy Procedures EMG Telma Burnett APRN, CNP [address] [place] [id number] Phone: tel: fax: Referral ID Status Reason Start Date Expiration Date Visits Re quested Visits Authorized [id number] Closed 10/24/2022 1 1 Encounter Details Date Type Department Care Team (Latest Contact Info) Description 10/24/2022 Transcribe Orders [facility] Central Scheduling 1 [facility] [place] [address] Lex, Telma Joyner, CHIEF SCHOOL FINANCE OFFICER, GLASS CYLINDER FLANGER [address] [place] [address] Lumbar radiculopathy (Primary Dx); Brachial neuritis Social [...] nos documented in this encounter Care Teams Marine Steamfitter Relationship Specialty Start Date End Date Nadia Butcher APRN, HERACLIO [address] [place] [address] PCP - General Advanced Practice Nurse 09/09/22 documented as of this encounter
--- OUTSIDE RECORDS SUMMARY | 2024-07-02 00:49 | XMS_ITS | Clinical Summary ---
Author Organization [facility] Address [address] [place] [address] Phone Care Team Providers Care Emblem Maker Name Role Phone Nadia Butcher APRN, PRINCIPAL WEB DEVELOPER Primary Care Provi hansel Social History Tobacco [...] this topic Insurance MEDICAID [facility] CBO ONLY BLUE CROSS ANTHEM Care Teams Emblem Maker Relationship Specialty Start Date End Date Nadia Butcher, VARNISH THINNER, PRINCIPAL WEB DEVELOPER [address] [place] [address] PCP - General Advanced Practice Nurse 09/09/22
--- OUTSIDE RECORDS SUMMARY | 2024-07-02 00:49 | XMS_ITS | Encounter Summary ---
Author Organization [facility] Address [address] [place] [address] Phone Care Team Providers Care Care Transitions Nurse Name Role Phone Nadia Butcher APRN, CNP Primary Care Provi hansel Reason for Referral * Radiology Services (Routine) - Closed Specialty Diagnoses / Procedures Referred By Contac t Referred To Contact Radiology Diagnoses Kidney stone Procedures XR ABDOMEN KUB FLAT PLATE Alexandra Butterfield APRN, CNP [address] [place] [address] Phone: tel: fax: Referral ID Status Reason Start Date Expiration Date Visits Re quested Visits Authorized [id number] Closed 02/13/2023 1 1 Encounter Details Date Type Department Care Team (Late Contact Info) Description 02/13/[address] [facility] Patient Access Admitting [address] [place] [address] Alexandra Butterfield APRN, CNP [address] [place] [address] Kidney stone (Primary Dx) Social History Tobacco [...] PM T: ??02/14/2023 3:45 PM Report ID: [id number] Reading Location: ??[id number] Procedure Note Norberto Echols MD - 02/14/2023 [...] by Norberto Echols M.D. JR: Report ID: [id number] Reading Location: [id number] IMPRESSION: No acute findings. Metallic density projecting over the right pelvis, favored to be external to the patient and possibly part of the clothing. Alexandra Butterfield APRN, CNP IMG DIAGNOSTIC ORDERABLE S Final Result documented in this encounter Visit Diagnoses Diagnosis Kidney stone- Primary Calculus of kidney Kidney stone Calculus of kidney documented in this encounter Care Teams Care Transitions Nurse Relationship Specialty Start Date End Date Nadia Butcher APRN, HERACLIO [address] [place] [address] PCP - General Advanced Practice Nurse 09/09/22 documented as of this encounter
--- OUTSIDE RECORDS SUMMARY | 2024-07-02 00:49 | XMS_ITS | Encounter Summary ---
Author Organization [employer] Care Team Providers Care Art Editor Name Role Phone Nadia Butcher APRN, CONTACT LENS LATHE OPERATOR Primary Care Provi hansel Encounter Details Date [...] on filedocumented in this encounter Care Teams Art Editor Relationship Specialty Start Date End Date Nadia Butcher, MAXIM[employer], CONTACT LENS LATHE OPERATOR [address] [place] [address] PCP - General Advanced Practice Nurse 09/09/22 documented as of this encounter
--- OUTSIDE RECORDS SUMMARY | 2024-07-02 00:50 | XMS_ITS | Clinical Summary ---
Author Organization [facility] Address [address] [place] [address] Care Team Providers Care Lunch Counter Manager Name Role Phone Andreina Clayton NP Primary Care Provide r Social History Tobacco Use Types Packs/Day Years Used Date Smoking Tobacco: Never Assessed Personal Safety Answer Date Recorded Getting School Help Needed Not on file 08/24 Comments Unknown Sex and Gender Information Value Date Recorded Sex Assigned at Not on file Legal Sex Female 2:55 PM BUSINESS SERVICES ANALYST Gender Identity Not on file Sexual Orientation [...] to complete this topic Insurance [facility] Care Teams Lunch Counter Manager Relationship Specialty Start Date End Date Andreina Clayton NP [address] [place] [address] PCP - General Nurse Practitioner 06/30/22
--- OUTSIDE RECORDS SUMMARY | 2024-07-02 00:50 | XMS_ITS | Encounter Summary ---
Author Organization [facility] Address [address] [place] [address] Care Team Providers Care Last Marker Name Role Phone Andreina Clayton LATIN AMERICAN STUDIES PROFESSOR Primary Care Provide r Reason for Visit * Diagnostic Imaging (Routine) - Closed Specialty Diagnoses / Procedures Referred By Contac t Referred To Contact Diagnoses Pain of finger of right hand Pain in right hand Procedures XR Hand Right 3 or More Views XR Hand Right 2 Views Soco Castellanos, JOSÉ MIGUEL [address] [address] Phone: tel: fax: [address] [address] Referral ID Status Reason Start Date Expiration Date Visits Re quested Visits Authorized [id number] Closed 06/30/2022 07/30/2023 1 1 Encounter Details Date Type Department Care Team (Latest Contact Info) Description 06/30/2022 3:00 PM SUPERVISOR LITHARGE - 06/30/2022 11:59 PM SUPERVISOR LITHARGE Hospital Encounter [facility] [address] [place] [id number] Pain of finger of right hand; Pain in right hand Discharge Disposition: Discharge to home or self care Social History Tobacco Use Types Packs/Day Years Used Date Smoking Tobacco: Never Assessed Comments Unknown Sex and Gender Information Value Date Recorded Sex Assigned at Not on file Legal Sex Female 2:55 PM SUPERVISOR LITHARGE Gender Identity Not on file Sexual Orientation [...] Read Routine (OP Routine) 06/30/2022 3:22 PM SUPERVISOR LITHARGE Pain of finger of right hand Pain in right hand documented in this encounter Results * XR Hand Right 3 or More Views (06/30/2022 3:22 PM SUPERVISOR LITHARGE) Anatomical Region Laterality Modality Upper Extremities, Hand Right Computed Radiography 06/30/2022 3:25 PM SUPERVISOR LITHARGE Narrative 06/30/2022 3:26 PM SUPERVISOR LITHARGE EXAM DESCRIPTION: ?? XR HAND RIGHT 3 [...] PM T: ??06/30/2022 3:26 PM Report ID: [id number] Reading Location: ??[id number] Procedure Note Natalie Perdue DO - 06/30/2022 [...] Natalie Perdue D.O. PS: PS Report ID: [id number] Reading Location: [place] [address] Oziel Mi MD IMG XR PROCEDURES Final Result documented in this encounter Visit Diagnoses Diagnosis Pain of finger of right hand Pain in right hand documented in this encounter Care Teams Last Marker Relationship Specialty Start Date End Date Andreina Clayton NP [address] [place] [address] PCP - General Nurse Practitioner 06/30/22 documented as of this encounter
--- OUTSIDE RECORDS SUMMARY | 2024-07-02 00:50 | XMS_ITS | Referral Summary ---
Author Organization [facility] Address [address] [place] [address] Care Team Providers Care Curriculum And Assessment Coordinator Name Role Phone Andreina Clayton NP Primary Care Provide r Social History Tobacco Use Types Packs/Day Years Used Date Smoking Tobacco: Never Assessed Personal Safety Answer Date Recorded Getting School Help Needed Not on file 08/24 Comments Unknown Sex and Gender Information Value Date Recorded Sex Assigned at Not on file Legal Sex Female 2:55 PM MUSHROOM FARMER Gender Identity Not on file Sexual Orientation Not on file Plan of Treatment Not on file Insurance [employer] [facility] Care Teams Curriculum And Assessment Coordinator Relationship Specialty Start Date End Date Andreina Clayton NP [address] [place] [address] PCP - General Nurse Practitioner 06/30/22
== END 2024-06-27 13:43 | disposition home or self-care (01) | DRG 560 ==
LOC: ANHLDR 06:16 → ANHOB2 16:16
PROVIDERS: Admitting Provider Student in an Organized Health Care Education/Training Program; PCP Nurse Practitioner Family; Visit Provider Student in an Organized Health Care Education/Training Program
DX: O69.81X0 Labor and delivery complicated by cord around neck, without compression, not applicable or unspecified (principal); Z3A.39 39 weeks gestation of pregnancy; Z37.0 Single live birth
CPT/HCPCS: 36415; 85014; 85018; 85025; 85461; 86592; 86703; 86850; 86900; 86901; 90384; A9270; G0432; J2590; J2790; J2795; J3010; J7120

== ENCOUNTER 2025-05-05 14:44 | Outpatient (CLI) | payer OTHER, SELFPAY ==
--- NOTE | ~2025-05-05 | CT_ITS ---
EXAM/PROCEDURE: CT sinus wo con HISTORY: J32.9 - Chronic sinusitis, unspecified COMPARISON: None available. TECHNIQUE: Paranasal sinus CT performed FINDINGS: Moderately extensive ethmoid air cell opacification right worse than left. Mild diffuse mucoperiosteal thickening in the maxillary sinuses right worse than left. Trace air-fluid level on the right side. Mild mucoperiosteal thickening in the sphenoid sinuses which are otherwise clear. The frontal sinuses are fully aerated. The right ostiomeatal complex appears largely opacified/occluded. The left ostiomeatal complex appears narrowed partially congested but patent. Nasal septum is slightly deviated to the right. Small dante bullosa in the middle turbinates which otherwise are unremarkable. No gross acute abnormality seen in the visualized cranial contents. Mastoid air cells and middle ear cavities are fully aerated bilaterally. IMPRESSION: 1. Moderately extensive right-sided paranasal sinus disease including trace air- fluid level in the right maxillary sinus which could represent acute sinusitis; the right ostiomeatal complex appears largely occluded. 2. Other findings as above. Reviewed, dictated and finalized at location A. /OCEAN EXPORT CLERK IMPRESSION: 1. Moderately extensive right-sided paranasal sinus disease including trace air -fluid level in the right maxillary sinus which could represent acute sinusitis ; the right ostiomeatal complex appears largely occluded. 2. Other findings as above.
--- OUTSIDE RECORDS SUMMARY | 2025-05-05 15:37 | XMS_ITS | Clinical Summary ---
Author Organization [facility] Address [address] [place] [address] Phone Care Team Providers Care Helicopter Officer Name Role Phone Nadia Butcher APRN, INDUSTRIAL RELATIONS MANAGER Primary Care Provi hansel Social History Tobacco [...] Virus (HCV) Screening 1997 TdaP Immunization 1997 Hepatitis B Immunization (1 of 3 - 19+ 3-dose series) 2016 Pap Smear 2018 Human Papillomavirus (HPV) Immunization (1 - 3-dose SCDM series) 2024 Influenza Immunization (#1) 2025 SARS-COV-2 Immunization ( season) 2025 Respiratory Syncytial Virus (RSV) Immunization (Adult) (1 - 1-dose 75+ series) 2072 Meningococcal Immunization (ACWY) Aged Out No longer eligible based on patient's age to complete this topic Pneumococcal Immunization Combined Aged Out No longer eligible based on patient's age to complete this topic Rotavirus Immunization Aged Out No lo nger eligible based on patient's age to complete this topic Insurance MEDICAID [facility] [place] [address] [place] [address] CBO ONLY BLUE CROSS [employer] Care Teams Helicopter Officer Relationship Specialty Start Date End Date Nadia Butcher, INCLUSION SPECIAL EDUCATION TEACHER, INDUSTRIAL RELATIONS MANAGER [address] [place] [address] PCP - General Advanced Practice Nurse 09/09/22
--- OUTSIDE RECORDS SUMMARY | 2025-05-05 15:37 | XMS_ITS | Clinical Summary ---
Author Organization [facility] Address [address] [place] [address] Care Team Providers Care Financial Services Consultant Name Role Phone Andreina Clayton HOTBED OPERATOR Primary Care Provide r Allergies Active Allergy Reactions Criticality Noted Date Comments Metronidazole Vision changes Medium 06/22/2024 vertigo, migraine, arm numbness Medications FLUoxetine 10 mg capsule Take 1 tablet/capsule (10 mg total) by mouth daily 5 Active magnesium glycinate 100 mg tablet Take 100 mg by mouth 4 Active lidocaine viscous (XYLOCAINE) 2 % solution Apply 10 mL to the mouth or throat every 6 (six) hours as needed (sore throat) May mix with 30 ml of Mylanta 100 mL 5 Active Additional Information Patient not taking.Reported on 04/27/2025 Active Problems Problem Noted Date Diagnosed Date Abdominal bloating 02/16/2025 Abscess, dental 02/16/2025 Acne 02/16/2025 Acute chest wall pain 02/16/2025 Chest pain, non-cardiac 02/16/2025 Acute mastitis of right breast 02/16/2025 Anxiety and depression 02/16/2025 Bipolar disorder with depression 02/16/2025 Blood in stool 02/16/2025 Bulging lumbar disc 02/16/2025 Cellulitis 02/16/2025 Chronic back pain 02/16/2025 Chronic neck pain 02/16/2025 Contusion of hip, left 02/16/2025 COVID-19 affecting in second trimester 02/16/2025 Diarrhea 02/16/2025 Fall (on) (from) other stairs and steps, initial encounter 02/16/2025 Fecal urgency 02/16/2025 Flatulence 02/16/2025 GBS bacteriuria 02/16/2025 IBS (irritable bowel syndrome) 02/16/2025 Impetigo due to Staphylococcus aureus 02/16/2025 Flank pain 02/16/2025 Left hip pain 02/16/2025 Pelvic pain 02/16/2025 Melena 02/16/2025 Menometrorrhagia 02/16/2025 Nausea and vomiting 02/16/2025 (normal spontaneous vaginal delivery) 02/16 Ovarian cyst 02/16/2025 Patella-femoral syndrome 02/16/2025 contractions 02/16/2025 Right knee pain 02/16/2025 Right knee sprain 02/16/2025 RUQ abdominal pain 02/16/2025 Dysfunctional or functional uterine hemorrhage 0 02/16/2025 Dysmenorrhea 02/16/2025 Suppression of menses 02/16/2025 Tooth pain 02/16/2025 Weight loss 02/16/2025 Encounters Date Type Department Care Team Description 04/27/2025 11:33 AM PROCESS ENGINEERING TECHNICIAN - 04/27/2025 11:59 PM PROCESS ENGINEERING TECHNICIAN [place] [address] Pelvic cramping Discharge Disposition: Discharge to home or self care 04/27/2025 11:30 AM PROCESS ENGINEERING TECHNICIAN Ancillary Procedure [facility] Imaging at [address] [phone] Upper respiratory infection, acute 04/27/2025 11:00 AM PROCESS ENGINEERING TECHNICIAN Office Visit [facility] at [address] [phone] Lucita Padilla, JOSÉ MIGUEL Pharyngitis due to other organism (Primary Dx); Pelvic cramping; Upper respiratory infection, acute 04/27/2025 Results Follow-Up [facility] at [address] [phone] Lucita Padilla, HOTBED OPERATOR XR Chest PA Lateral 2 Views, Urine culture Urine, clean voided 02/18/2025 Results Follow-Up [facility] at [address] [phone] Jason Rojas NP Throat culture Throat 02/16/2025 3:00 PM CDT - 02/16/2025 11:59 PM CDT Hospital Encounter [address] [address] Sore throat Discharge Disposition: Discharge to home or self care 02/16/2025 12:45 PM CDT Office Visit [facility] at [address] [address] Cris Coker NP Sore throat (Primary Dx); Breast pain, right; Nausea from Last 3 Months Social History Tobacco Use Types Packs/Day Years Used Date Smoking Tobacco: Never Assessed Comments Unknown Sex and Gender Information Value Date Recorded Sex Assigned at Not on file Legal Sex Female 2:55 PM PROCESS ENGINEERING TECHNICIAN Gender Identity Not on file Sexual Orientation Not on file Last Filed Vital Signs Vital Sign Reading Time Taken Comments Blood Pressure 118/64 04/27/2025 11:05 AM PROCESS ENGINEERING TECHNICIAN Pulse 79 04/27/2025 11:05 AM PROCESS ENGINEERING TECHNICIAN Temperature 36.2 C (97.1 F) 04/27/2025 11:05 AM PROCESS ENGINEERING TECHNICIAN Respiratory Rate 24 04/27/2025 11:05 AM PROCESS ENGINEERING TECHNICIAN Oxygen Saturation 99% 04/27/2025 11:05 AM PROCESS ENGINEERING TECHNICIAN Inhaled Oxygen Concentration - - Weight 75.8 kg (167 lb) 04/27/2025 11:05 AM PROCESS ENGINEERING TECHNICIAN Height - - Body Mass Index - - Plan of Treatment Health Maintenance Due Date Last Done Comments Cervical Cancer Screening 1997 Depression Screening 1997 Hepatitis C Screening 1997 DTaP/Tdap/Td Vaccine (1 - Tdap) 2008 Varicella Vaccines (1 of 2 - 13+ 2-dose series) 2010 Hepatitis B Screening 2015 Regular Well Visit/Exam 18-64 2015 HPV Vaccines (1 - 3-dose SCD M series) 2024 Influenza Vaccine (#1) 2025 Pneumococcal vaccine <65 Aged Out No longer eligible based on patient's age to complete this topic Procedures Procedure Name Priority Date/Time Associated Diagnosis Comments XR CHEST PA LATERAL 2 VIEWS Schedule PRINCE, Read PRINCE (Appt Today, Awaiting Results) 04/27/2025 11:33 AM PROCESS ENGINEERING TECHNICIAN Upper respiratory infection, acute URINE CULTURE Routine 04/27/2025 11:33 AM PROCESS ENGINEERING TECHNICIAN Pelvic cramping POCT RAPID STREP Routine 04/27/2025 11:2 2 AM PROCESS ENGINEERING TECHNICIAN Pharyngitis due to other organism POCT URINALYSIS DIPSTICK Routine 04/27/2025 11:20 AM PROCESS ENGINEERING TECHNICIAN Pelvic cramping POCT HCG, URINE Routine 04/27/2025 11:20 AM PROCESS ENGINEERING TECHNICIAN Pelvic cramping THROAT CULTURE Routine 02/16/2025 3:00 PM CDT Sore throat POCT RAPID STREP Routine 02/16/2025 1:13 PM CDT Sore throat POC INFLUENZA A/B, COVID-19 ANTIGEN Routine 02/16/2025 1:13 PM CDT Sore throat POCT URINALYSIS DIPSTICK Routine 02/16/2025 1:02 PM CDT Nausea POCT HCG, URINE Routine 02/16/2025 1:02 PM CDT Sore throat from Last 3 Months Results * XR Chest PA Lateral 2 Views (04/27/2025 11:33 AM PROCESS ENGINEERING TECHNICIAN) Anatomical Region Laterality Modality Body, Chest N/A Digital Radiogra phy 04/27/2025 11:5 6 AM PROCESS ENGINEERING TECHNICIAN Impressions 04/27/2025 11:56 AM PROCESS ENGINEERING TECHNICIAN No acute cardiopulmonary abnormality. Electronically signed by: MD Alondra Ferrer 04/27/2025 11:56 AM PROCESS ENGINEERING TECHNICIAN EXAMINATION: XR CHEST PA LATERAL 2 VIEWS HISTORY: cough TECHNIQUE: Frontal and lateral views of the chest. COMPARISON: none FINDINGS: Cardiac silhouette and mediastinal contours are normal. No focal consolidation. No pleural effusion or pneumothorax. Procedure Note Alf Santos MD - 04/27/2025 EXAMINATION: XR CHEST PA LATERAL 2 VIEWS HISTORY: cough TECHNIQUE: Frontal and lateral views of the chest. COMPARISON: none FINDINGS: Cardiac silhouette and mediastinal contours are normal. No focal consolidation. No pleural effusion or pneumothorax. IMPRESSION: No acute cardiopulmonary abnormality. Electronically signed by: Alf Santos MD Lucita Padilla HOTBED OPERATOR IMG XR PROCEDURES Final Result * Urine culture Urine, clean voided (04/27/2025 11:33 AM PROCESS ENGINEERING TECHNICIAN) Report Final Report: Less than 100,000 colonies/mL (clinically insignificant growth based on current clinical standards) Comment:Testing performed by : [facility], [address] [place]., [address] Organism (CLINICALLY INSIGNIFICANT GROWTH [facility] Urine, clean voided 04/27/2025 11:33 AM PROCESS ENGINEERING TECHNICIAN 04/27/2025 6:32 PM PROCESS ENGINEERING TECHNICIAN Narrative TERELL - 04/28/2025 8:07 PM PROCESS ENGINEERING TECHNICIAN Testing performed by [facility] ([phone]) Lucita Padilla NP LAB MICROBIOLOGY - GENERAL ORD ERABLES Final Result [facility] [address] [address] Department [place] [address] * POCT rapid strep A (04/27/2025 11:22 AM PROCESS ENGINEERING TECHNICIAN) Rapid Strep A, POC Negative Negative Swab 04/27/2025 11:2 2 AM PROCESS ENGINEERING TECHNICIAN us Lucita Padilla NP POINT OF CARE TEST ORDERABLES Final Result * POCT hCG, urine (04/27/2025 11:20 AM PROCESS ENGINEERING TECHNICIAN) HCG, ur, POC Negative Negative Lot Number [id number] QC Backgroud Clear Acceptable QC Control Line Acceptable Urine 04/27/2025 11:2 0 AM PROCESS ENGINEERING TECHNICIAN Lucita Padilla NP POINT OF CARE TEST ORDERABLES Final Result * POCT urinalysis dipstick (04/27/2025 11:20 AM PROCESS ENGINEERING TECHNICIAN) Color, Urine, POC Yellow Clarity, ur, POC Clear Clear Glucose, ur, POC Negative Negative Bilirubin, ur, POC Negative Negative Ketones, ur, POC Negative Negative Specific [place], POC 1.010 1.003 - 1.030 Blood, ur, POC Negative Negative pH, ur, POC 6.5 5.0 - 8.0 Protein, ur, POC Negative Negative Urobilinogen, urine, POC 0.2 0.2 - 1.0 mg/dL Nitrite, ur, POC Negative Negative Leukocytes, ur, POC Negative Negative Lot Number [id number] Urine 04/27/2025 11:2 0 AM PROCESS ENGINEERING TECHNICIAN Lucita Padilla NP POINT OF CARE TEST ORDERABLES Final Result * Throat culture Throat (02/16/2025 3:00 PM CDT) Report Final Report: No growth of pathogens. Comment:Testing performed by : [facility], [address] [place]., [address] Throat 02/16/2025 3:00 PM CDT 02/17/2025 2:15 AM CDT Narrative TERELL ARDON - 02/17/2025 8:39 PM CDT Testing performed by [facility] ([phone]). Cris Coker NP LAB MICROBIOLOGY - GENERAL ORDERABLES Final Result [facility] [address] [address] Department [place] [address] * POC Influenza A/B, COVID-19 antigen (02/16/2025 1:13 PM CDT) [facility] Influenza A Ag, POC Negative Negative [facility] Influenza B Ag, POC Negative Negative [facility] COVID-19 Ag POC Presumptive Negative Presumptive Negative, Invalid [facility] Nasal 02/16/2025 1:13 PM CDT Cris Coker HOTBED OPERATOR POINT OF CARE TEST ORDERAB LES Final Result Performing Organization Address City/State/[facility] Co de Phone Number [facility] [address] [place] [address] * POCT rapid strep A (02/16/2025 1:13 PM CDT) [facility] Rapid Strep A, POC Negative Negative Swab 02/16/2025 1:13 PM CDT Cris Coker HOTBED OPERATOR POINT OF CARE TEST ORDERAB LES Final Result * POCT hCG, urine (02/16/2025 1:02 PM CDT) Pathologist [facility] HCG, ur, POC Negative Negative Lot Number 1 QC Backgroud Clear Acceptable QC Control Line Acceptable Urine 02/16/2025 1:02 PM CDT Cris Coker HOTBED OPERATOR POINT OF CARE TEST ORDERAB LES Final Result * POCT urinalysis dipstick (02/16/2025 1:02 PM CDT) Pathologist [facility] Color, Urine, POC Light Yellow Clarity, ur, POC Clear Clear Glucose, ur, POC Negative Negative Bilirubin, ur, POC Negative Negative Ketones, ur, POC Negative Negative Specific [place], POC 1.015 1.003 - 1.030 Blood, ur, POC Negative Negative pH, ur, POC 7.0 5.0 - 8.0 Protein, ur, POC Negative Negative Urobilinogen, urine, POC 0.2 0.2 - 1.0 mg/dL Nitrite, ur, POC Negative Negative Leukocytes, ur, POC Negative Negative Lot Number [id number] Urine 02/16/2025 1:02 PM CDT Cris Coker NP POINT OF CARE TEST ORDERAB LES Final Result from Last 3 Months Insurance [facility] Care Teams Financial Services Consultant Relationship Specialty Start Date End Date Andreina Clayton NP [address] [place] [address] PCP - General Nurse Practitioner 06/30/22
--- OUTSIDE RECORDS SUMMARY | 2025-05-05 15:37 | XMS_ITS ---
Author Organization [facility] Address [address] [place] [address] Phone Care Team Providers Care Plastic Boat Buffer Name Role Phone Nadia Butcher APRN, MOLD UNLOADER Primary Care Provi hansel [facility] Status:Enrolled (Active) Start date:07/22/2024 Enrollment date:07/22/2024 Related social drivers of health:Intimate Partner Violence, Social Connections, Alcohol Use, Tobacco Use, Financial Resource Strain,Depression, Stress, Physical Activity, Food Insecurity, Transportation Needs, Housing Stability, Utilities Continued Care and Services Coordination
--- OUTSIDE RECORDS SUMMARY | 2025-05-05 15:37 | XMS_ITS | Patient Health Record ---
Author Organization [facility] Address [address] [facility] [place] [address] Care Team Providers Care Plumber Apprentice Name Role Phone Sami Margaret Primary Care Provider Reason For Referral No Information Medications Medication SIG (Take, Route, Frequency, Duration) Notes Start Date End Date Status Probiotic - as directed Orally Active IBgard 90 MG as directed Orally Active Montelukast Sodium 10 MG 1 tablet Orally Once a day; Duration: 90 days 04/19/2020 Active Zoloft 50 MG 1 tablet Orally Once a day; Duration: 30 days Active Social History Tobacco Use: [...] Problem Status W/U Status Risk Notes Problem Mild intermittent asthma (048017977) Mild intermittent asthma without complication (J45.20) Active confirmed Problem Recurrent major depression in full remission (18997766) Recurrent major depressive disorder, in full remission (F33.42) Active confirmed Problem Irritable bowel syndrome (80971487) Irritable bowel syndrome with both constipation and diarrhea (K58.2) Active confirmed Plan Of Treatment No Information Insurance Providers Payer Name Payer Address Payer Phone Subscriber Number Group Number Insured Name Patient Relationship to Insured Coverage Start Date Coverage End Date [facility] [address] [place] [address] [id number] 1 Chance Candace Self - patient is the insured [place] [address] [place] [address] [id number] Chance Candace Self - patient is the insured Medical (General) History Medical History History ICD Code depression Surgical History Surgery Date(Month/Year) widom teeth 2018 Hospitalization History Reason Date(Month/Year) child 2019
--- OUTSIDE RECORDS SUMMARY | 2025-05-05 15:37 | XMS_ITS | Patient Health Record ---
Author Organization [facility] Address [address] [facility] [address] [place] [address] Care Team Providers Care Rehabilitation Inspector Name Role Phone Marnie EDWARDS, Inderjit Primary Care Provider Unavaila ble Allergies Allergen (clinical drug ingredient) Drug/Non Drug Allergy documented on EMR Reaction Allergy Type Onset Date Status Pollen pollen (uncoded) Unknown Allergy Act theodore Reason For Referral No Information Medications Medication SIG (Take, Route, Fr equency, Duration) Notes Start Date End Date Status Zoloft 50 MG 1 tablet Orally Once a day Active Singulair 10 MG 1 tablet Orally Once a day Active Social History Tobacco Use: Social History Observation Description Date Details (start date - stop date) Never Smoker NA - NA Tobacco Use/Smoking Question Answer Notes Are you a nonsmoker Problems Problem Type SNOMED Code ICD Code Onset Dates Problem Status W/U Status Risk Notes Problem Mild recurrent major depression (93344708) 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 confirmed Plan Of Treatment No Information Insurance Providers Payer Name Payer Address Payer Phone Subscriber Number Group Number Insured Name Patient Relationship to Insured Coverage Start Date Coverage End Date [employer] [facility] [employer] [place] [address] [place] [address] [id number] JOHN Self - patient is the insured 3 [employer] [place] [address] [place] [address] [id number] JOHN MATUTE Self - patient is the insured 9 Medical (General) History Medical History History ICD Code anxiety depression asthma Surgical History Surgery Date(Month/Year) wisdom teeth extraction
--- OUTSIDE RECORDS SUMMARY | 2025-05-05 15:37 | XMS_ITS | Encounter Summary ---
Author Organization [facility] Healthcare Address [address] [place] [address] Care Team Providers Care Mine Motor Operator Name Role Phone Andreina Clayton ATTRACTION ATTENDANT Primary Care Provide r Encounter Details Date Type Department Care Team (Late st Contact Info) Description 04/27/2025 Results Follow-Up [facility] at [address] [address] Lucita Padilla NP [address] [facility] [address] [place], [place] [id number] XR Chest PA Lateral 2 Views, Urine culture Urine, clean voided Social History Tobacco Use Types Packs/Day Years Used Date Smoking Tobacco: Never Assessed Comments Unknown Sex and Gender Information Value Date Recorded Sex Assigned at Not on file Legal Sex Female 2:55 PM TREE TRIMMER HELPER Gender Identity Not on file Sexual Orientation Not on file documented as of this encounter Functional Status documented as of this encounter Plan of Treatment Not on file documented as of this encounter Visit Diagnoses Not on filedocumented in this encounter Care Teams Mine Motor Operator Relationship Specialty Start Date End Date Andreina Clayton NP [address] [place] [address] PCP - General Nurse Practitioner 06/30/22 documented as of this encounter
== END 2025-05-05 14:45 | disposition home or self-care (01) ==
PROVIDERS: PCP Nurse Practitioner Family; Visit Provider Otolaryngology
DX: J32.9 Chronic sinusitis, unspecified (principal)
CPT/HCPCS: 70486